=== PATIENT | male | born 1960 | race Two or more races ===

== ENCOUNTER 2022-07-24 22:20 | Inpatient (IN) | payer OTHER ==
[~2022-07-24] VITALS: Ht 172.7 cm; Wt 77.6 kg
[2022-07-24] MEDS ORDERED: ETOMIDATE (2MG/ML) 20ML VIAL IV ONE (22:30)
[2022-07-24] MEDS ORDERED: ROCURONIUM 10MG/ML 10ML VIAL IV ONE ×2 (22:30→22:31)
[2022-07-24] MEDS ORDERED: SUCCINYLCHOLINE CHLORIDE 20 MG/ML 10ML VIAL IV ONE (22:30)
[2022-07-24] MEDS ORDERED: MIDAZOLAM HCL 5 MG/ML-1ML VIAL IM ONE (22:30)
[2022-07-24] MEDS ORDERED: MIDAZOLAM DRIP 50 mg/50mL 50 ML IV ONE (22:33)
[2022-07-24] MEDS: MIDAZOLAM DRIP 50 mg/50mL 50 ML IV SCH (22:38)
[2022-07-24] MEDS: PROPOFOL 100 ML IV SCH (22:50)
[2022-07-24] MEDS ORDERED: PROPOFOL 100 ML IV ONE (23:08)
[2022-07-24] MEDS ORDERED: cefTRIAXone 1GM/50ML D5W 50 ML IV ONE (23:15)
[2022-07-24] MEDS ORDERED: AZITHROMYCIN 500MG/ 250ML 250 ML IV ONE (23:15)
[2022-07-24] MEDS ORDERED: SODIUM CHLORIDE 0.9% 1,000 ML IV ONE (23:15)
[2022-07-24 23:33] LABS: Basophils # (auto) 0.1 10 ^3/uL (0-0.2); Basophils % (auto) 0.6 % (0.0-2.0); Eosinophils # (auto) 0.1 10 ^3/uL (0-0.8); Eosinophils % (auto) 0.7 % (0.0-7.0); Hematocrit 45.4 % (41.0-53.0); Hemoglobin 14.5 g/dL (13.5-17.5); Lymphocytes # (auto) 2.9 10 ^3/uL (0.4-5.4); Lymphocytes % (auto) 15.4 % (10.0-50.0); Mean Corpuscular Hemoglobin 29.3 pg (28.0-32.0); Mean Corpuscular Volume 91.7 fL (80.0-100.0); Monocytes # (auto) 1.4 10 ^3/uL (0-1.3); Monocytes % (auto) 7.5 % (0.0-12.0); Neutrophils # (auto) 14.2 10 ^3/uL (1.6-8.6); Neutrophils % (auto) 75.8 % (37.0-80.0); Red Blood Cells 4.95 10^6/uL (4.5-5.90); White Blood Cell 18.8 10^3/uL (4.4-10.8)
[2022-07-24 23:52] LABS: Lactic Acid w/Reflex 2.6 mmol/L (0.4-2.0)
[2022-07-25] VITALS (9 sets, daily range): BP systolic 92–161; BP diastolic 60–109
[2022-07-25 00:20] LABS: Alanine Aminotransferase 43 U/L (16-61); Albumin 3.6 g/dL (3.4-5.0); Anion Gap 7 (5-15); Aspartate Aminotransferase 25 U/L (15-37); BUN/Creatinine Ratio 21.7; Blood Alcohol < 3.0 mg/dL (0-5); Blood Urea Nitrogen 18 mg/dL (7-18); Calcium 9.4 mg/dL (8.5-10.1); Carbon Dioxide 27 mmol/L (21-32); Chloride 107 mmol/L (98-107); GFR African American 121 mL/min; GFR Non-African American 100 mL/min; Glucose 205 mg/dL (74-106); Potassium 3.6 mmol/L (3.5-5.1); Sodium 141 mmol/L (136-145)
[2022-07-25 00:23] LABS: Alkaline Phosphatase 116 U/L (45-117); Bilirubin, Total 0.9 mg/dL (0.2-1.0); Total Protein 8.1 g/dL (6.4-8.2)
[2022-07-25] MEDS ORDERED: ACETAMINOPHEN 650 MG RECT SUPP PR ONE (01:30)
[2022-07-25] MEDS ORDERED: ACETAMINOPHEN 325 MG RECT SUPP PR ONE (01:30)
[2022-07-25] MEDS ORDERED: ROCURONIUM 10MG/ML 10ML VIAL IV ONE (03:15)
[2022-07-25] MEDS: MIDAZOLAM DRIP 50 mg/50mL 50 ML IV SCH ×3 (04:20→23:48)
[2022-07-25] MEDS ORDERED: ACETAMINOPHEN 325 MG TAB PO PRN (04:30)
[2022-07-25] MEDS ORDERED: NITROGLYCERIN 0.4 MG SL TAB SL PRN (04:30)
[2022-07-25] MEDS ORDERED: MORPHINE SULFATE INJ 2 MG/ml SYRG IV PRN (04:30)
[2022-07-25] MEDS ORDERED: ONDANSETRON HCL 4 MG/2 ML VIAL IV PRN (04:30)
[2022-07-25] MEDS: NOREPINEPHRINE 8 MG/250ML KIT 250 ML IV SCH ×2 (04:35→16:47)
[2022-07-25] MEDS: SODIUM CHLORIDE 0.9% 1,000 ML IV SCH ×2 (04:46→11:49)
[2022-07-25] MEDS ORDERED: MIDAZOLAM HCL 5 MG/ML-1ML VIAL ONE (06:52)
[2022-07-25] MEDS ORDERED: SUCCINYLCHOLINE CHLORIDE 20 MG/ML 10ML VIAL IV ONE ×2 (06:52→06:54)
[2022-07-25] MEDS: ENOXAPARIN SOD 40 MG/0.4 ML SYRINGE SC SCH (11:48)
[2022-07-25] MEDS: PANTOPRAZOLE 40 MG/10 ML VIAL INJ IV SCH (11:49)
[2022-07-25 16:28] LABS: Basophils # (auto) 0.1 10 ^3/uL (0-0.2); Basophils % (auto) 0.5 % (0.0-2.0); Eosinophils # (auto) 0.1 10 ^3/uL (0-0.8); Eosinophils % (auto) 0.9 % (0.0-7.0); Hematocrit 39.2 % (41.0-53.0); Hemoglobin 12.7 g/dL (13.5-17.5); Lymphocytes # (auto) 1.7 10 ^3/uL (0.4-5.4); Lymphocytes % (auto) 13.4 % (10.0-50.0); Mean Corpuscular Hgb Conc. 32.5 g/dL (32.0-36.0); Mean Corpuscular Volume 89.3 fL (80.0-100.0); Monocytes % (auto) 7.5 % (0.0-12.0); Neutrophils # (auto) 10.1 10 ^3/uL (1.6-8.6); Neutrophils % (auto) 77.7 % (37.0-80.0); Nucleated Red Blood Cells % 0.1 %; Red Blood Cells 4.39 10^6/uL (4.5-5.90); Red Cell Distribution Width 14.9 % (11.8-14.3)
[2022-07-25 16:51] LABS: Calcium 8.6 mg/dL (8.5-10.1); Potassium 3.8 mmol/L (3.5-5.1)
[2022-07-25 17:12] LABS: INR 1.07 (0.9-1.15); Partial Thromboplastin Time 34.4 sec (24.6-33.4)
[2022-07-25] MEDS ORDERED: cefTRIAXone 1GM/50ML D5W 50 ML IV ONE (21:30)
[2022-07-25] MEDS ORDERED: AZITHROMYCIN 500MG/ 250ML 250 ML IV ONE (21:30)
[2022-07-25] MEDS ORDERED: HYALURONIDASE 150 UNIT/1 ML SUBCUT ONE (22:15)
[2022-07-26] VITALS (67 sets, daily range): BP systolic 102–163; BP diastolic 66–103
[2022-07-26 04:57] LABS: Basophils # (auto) 0 10 ^3/uL (0-0.2); Basophils % (auto) 0.3 % (0.0-2.0); Eosinophils # (auto) 0.3 10 ^3/uL (0-0.8); Eosinophils % (auto) 2.6 % (0.0-7.0); Hematocrit 37.6 % (41.0-53.0); Hemoglobin 12.2 g/dL (13.5-17.5); Lymphocytes # (auto) 2.1 10 ^3/uL (0.4-5.4); Mean Corpuscular Hemoglobin 29.4 pg (28.0-32.0); Mean Corpuscular Hgb Conc. 32.4 g/dL (32.0-36.0); Mean Corpuscular Volume 90.7 fL (80.0-100.0); Monocytes # (auto) 1.1 10 ^3/uL (0-1.3); Monocytes % (auto) 9.1 % (0.0-12.0); Neutrophils # (auto) 8.7 10 ^3/uL (1.6-8.6); Red Blood Cells 4.15 10^6/uL (4.5-5.90); Red Cell Distribution Width 14.5 % (11.8-14.3); White Blood Cell 12.2 10^3/uL (4.4-10.8)
[2022-07-26 05:13] LABS: Albumin 2.6 g/dL (3.4-5.0); Calcium 8.5 mg/dL (8.5-10.1); Potassium 3.8 mmol/L (3.5-5.1)
[2022-07-26 05:16] LABS: BUN/Creatinine Ratio 21.2; Bilirubin, Total 0.6 mg/dL (0.2-1.0); Total Protein 6.4 g/dL (6.4-8.2)
[2022-07-26] MEDS: PROPOFOL 100 ML IV SCH ×2 (06:14→23:15)
[2022-07-26] MEDS: SODIUM CHLORIDE 0.9% 1,000 ML IV SCH (08:10)
[2022-07-26] MEDS ORDERED: cefTRIAXone 1GM/50ML D5W 50 ML IV SCH (09:00)
[2022-07-26] MEDS ORDERED: AZITHROMYCIN 500MG/ 250ML 250 ML IV SCH (10:00)
[2022-07-26] MEDS: MIDAZOLAM DRIP 50 mg/50mL 50 ML IV SCH ×3 (10:51→22:08)
[2022-07-26] MEDS: PANTOPRAZOLE 40 MG/10 ML VIAL INJ IV SCH (11:12)
[2022-07-26] MEDS: ENOXAPARIN SOD 40 MG/0.4 ML SYRINGE SC SCH (11:12)
[2022-07-26 19:53] LABS: Folate (Folic Acid) 10.99 ng/mL (5.38-24)
[2022-07-27] VITALS (99 sets, daily range): BP systolic 83–197; BP diastolic 52–108
[2022-07-27] MEDS: SODIUM CHLORIDE 0.9% 1,000 ML IV SCH ×3 (01:19→17:41)
[2022-07-27] MEDS: NOREPINEPHRINE 8 MG/250ML KIT 250 ML IV SCH (02:45)
[2022-07-27 04:31] LABS: BUN/Creatinine Ratio 20.8; Calcium 8.7 mg/dL (8.5-10.1)
[2022-07-27 05:14] LABS: Basophils # (auto) 0 10 ^3/uL (0-0.2); Basophils % (auto) 0.5 % (0.0-2.0); Eosinophils # (auto) 0.1 10 ^3/uL (0-0.8); Hematocrit 35.7 % (41.0-53.0); Hemoglobin 11.8 g/dL (13.5-17.5); Lymphocytes # (auto) 1.5 10 ^3/uL (0.4-5.4); Lymphocytes % (auto) 14.3 % (10.0-50.0); Mean Corpuscular Hemoglobin 29.5 pg (28.0-32.0); Mean Corpuscular Hgb Conc. 33.2 g/dL (32.0-36.0); Mean Corpuscular Volume 88.9 fL (80.0-100.0); Monocytes % (auto) 9.5 % (0.0-12.0); Neutrophils # (auto) 7.9 10 ^3/uL (1.6-8.6); Neutrophils % (auto) 74.7 % (37.0-80.0); Red Blood Cells 4.01 10^6/uL (4.5-5.90); Red Cell Distribution Width 14.7 % (11.8-14.3); White Blood Cell 10.5 10^3/uL (4.4-10.8)
[2022-07-27] MEDS: MIDAZOLAM DRIP 50 mg/50mL 50 ML IV SCH (06:45)
[2022-07-27] MEDS ORDERED: TAMS1CAP25 PO (08:44)
[2022-07-27] MEDS ORDERED: SENN1TAB14 PO (08:53)
[2022-07-27] MEDS ORDERED: CHLO25CA56 PO (08:53)
[2022-07-27] MEDS ORDERED: QUET25TA37 PO (08:53)
[2022-07-27] MEDS ORDERED: NITR-52 PO (08:53)
[2022-07-27] MEDS ORDERED: NYS5LQ MT (08:53)
[2022-07-27] MEDS ORDERED: BENZ0.5T19 PO (08:53)
[2022-07-27] MEDS ORDERED: LEVE500T32 PO (08:53)
[2022-07-27] MEDS ORDERED: LEVO100T8 PO (08:53)
[2022-07-27] MEDS: PANTOPRAZOLE 40 MG/10 ML VIAL INJ IV SCH (11:28)
[2022-07-27] MEDS: ENOXAPARIN SOD 40 MG/0.4 ML SYRINGE SC SCH (11:29)
[2022-07-27] MEDS: LINEZOLID 600MG/300ML 300 ML IV SCH ×2 (11:29→21:45)
[2022-07-27] MEDS: MEROPENEM 1GM IVPB 100 ML IV SCH ×2 (15:33→21:46)
[2022-07-27] MEDS: LEVOTHYROXINE SODIUM 100 MCG/5 ML INJ IV SCH (16:50)
[2022-07-27] MEDS: NYSTATIN (MOUTH-THROAT) 500,000 UNITS/5 ML SUSP MT SCH ×2 (17:40→21:45)
[2022-07-27] MEDS: chlordiazePOXIDE HCL 25 MG CAP PO SCH (21:45)
[2022-07-27] MEDS: QUEtiapine FUMARATE 25 MG TAB PO SCH (21:45)
[2022-07-27] MEDS: MUPIROCIN 2% OINT 15gm or 22gm TOP SCH (21:46)
[2022-07-27] MEDS: levETIRAcetam 500 MG TAB PO SCH (21:46)
[2022-07-27] MEDS: PROPOFOL 100 ML IV SCH (23:15)
[2022-07-28] VITALS (93 sets, daily range): BP systolic 91–158; BP diastolic 60–103
[2022-07-28] MEDS: NOREPINEPHRINE 8 MG/250ML KIT 250 ML IV SCH (02:45)
[2022-07-28] MEDS: NYSTATIN (MOUTH-THROAT) 500,000 UNITS/5 ML SUSP MT SCH ×2 (05:59→12:59)
[2022-07-28] MEDS: QUEtiapine FUMARATE 25 MG TAB PO SCH ×3 (05:59→21:58)
[2022-07-28] MEDS: chlordiazePOXIDE HCL 25 MG CAP PO SCH ×2 (05:59→14:29)
[2022-07-28] MEDS: MEROPENEM 1GM IVPB 100 ML IV SCH ×3 (06:00→21:59)
[2022-07-28 06:05] LABS: BUN/Creatinine Ratio 17.6; Calcium 8.9 mg/dL (8.5-10.1); Potassium 3.3 mmol/L (3.5-5.1)
[2022-07-28 06:56] LABS: Basophils # (auto) 0.1 10 ^3/uL (0-0.2); Basophils % (auto) 0.8 % (0.0-2.0); Eosinophils # (auto) 0.3 10 ^3/uL (0-0.8); Eosinophils % (auto) 4.2 % (0.0-7.0); Hematocrit 37.5 % (41.0-53.0); Hemoglobin 12.3 g/dL (13.5-17.5); Lymphocytes # (auto) 1.7 10 ^3/uL (0.4-5.4); Lymphocytes % (auto) 21.5 % (10.0-50.0); Mean Corpuscular Hemoglobin 29.4 pg (28.0-32.0); Mean Corpuscular Hgb Conc. 32.8 g/dL (32.0-36.0); Mean Corpuscular Volume 89.6 fL (80.0-100.0); Monocytes # (auto) 0.8 10 ^3/uL (0-1.3); Neutrophils # (auto) 4.8 10 ^3/uL (1.6-8.6); Neutrophils % (auto) 62.5 % (37.0-80.0); Red Blood Cells 4.18 10^6/uL (4.5-5.90); Red Cell Distribution Width 14.7 % (11.8-14.3); White Blood Cell 7.7 10^3/uL (4.4-10.8)
[2022-07-28] MEDS: PANTOPRAZOLE 40 MG/10 ML VIAL INJ IV SCH (09:35)
[2022-07-28] MEDS: LEVOTHYROXINE SODIUM 100 MCG/5 ML INJ IV SCH (09:35)
[2022-07-28] MEDS: LINEZOLID 600MG/300ML 300 ML IV SCH ×2 (09:36→21:13)
[2022-07-28] MEDS: ENOXAPARIN SOD 40 MG/0.4 ML SYRINGE SC SCH (09:36)
[2022-07-28] MEDS: BENZTROPINE MESY 0.5 MG TAB PO SCH (09:36)
[2022-07-28] MEDS: MUPIROCIN 2% OINT 15gm or 22gm TOP SCH ×2 (09:36→21:58)
[2022-07-28] MEDS: TAMSULOSIN HYDROCHLORIDE 0.4 MG CAP PO SCH (09:36)
[2022-07-28] MEDS: levETIRAcetam 500 MG TAB PO SCH ×2 (09:36→21:58)
[2022-07-28] MEDS: SODIUM CHLORIDE 0.9% 1,000 ML IV SCH (12:59)
[2022-07-28] MEDS: OSELTAMIVIR 75MG/5ML ORAL SUSP GT SCH ×2 (16:15→21:59)
[2022-07-28] MEDS ORDERED: POTASSIUM CHL 20MEQ/100ML 100 ML IV ONE (16:15)
[2022-07-28] MEDS: MIDAZOLAM DRIP 50 mg/50mL 50 ML IV SCH (22:30)
[2022-07-28] MEDS: PROPOFOL 100 ML IV SCH (23:15)
[2022-07-29] VITALS (95 sets, daily range): BP systolic 77–165; BP diastolic 46–115
[2022-07-29] MEDS: SODIUM CHLORIDE 0.9% 1,000 ML IV SCH ×2 (01:50→15:10)
[2022-07-29] MEDS: NOREPINEPHRINE 8 MG/250ML KIT 250 ML IV SCH (03:00)
[2022-07-29 04:06] LABS: Basophils # (auto) 0.1 10 ^3/uL (0-0.2); Basophils % (auto) 0.8 % (0.0-2.0); Eosinophils # (auto) 0.3 10 ^3/uL (0-0.8); Eosinophils % (auto) 4.1 % (0.0-7.0); Monocytes # (auto) 0.7 10 ^3/uL (0-1.3); Neutrophils # (auto) 5.5 10 ^3/uL (1.6-8.6); Nucleated Red Blood Cells % 0.1 %; White Blood Cell 7.8 10^3/uL (4.4-10.8)
[2022-07-29 04:07] LABS: Hematocrit 31.9 % (41.0-53.0); Hemoglobin 10.6 g/dL (13.5-17.5); Lymphocytes # (auto) 1.2 10 ^3/uL (0.4-5.4); Lymphocytes % (auto) 15.7 % (10.0-50.0); Mean Corpuscular Hemoglobin 29.8 pg (28.0-32.0); Mean Corpuscular Hgb Conc. 33.3 g/dL (32.0-36.0); Mean Corpuscular Volume 89.6 fL (80.0-100.0); Monocytes % (auto) 9.2 % (0.0-12.0); Neutrophils % (auto) 70.2 % (37.0-80.0); Red Blood Cells 3.56 10^6/uL (4.5-5.90); Red Cell Distribution Width 14.5 % (11.8-14.3)
[2022-07-29 04:25] LABS: Albumin 2.3 g/dL (3.4-5.0); BUN/Creatinine Ratio 14.3; Calcium 8.4 mg/dL (8.5-10.1); Potassium 3.6 mmol/L (3.5-5.1)
[2022-07-29 04:28] LABS: Bilirubin, Total 0.5 mg/dL (0.2-1.0); Total Protein 5.5 g/dL (6.4-8.2)
[2022-07-29] MEDS: MEROPENEM 1GM IVPB 100 ML IV SCH (05:53)
[2022-07-29] MEDS: QUEtiapine FUMARATE 25 MG TAB PO SCH ×3 (05:53→21:39)
[2022-07-29] MEDS: OSELTAMIVIR 75MG/5ML ORAL SUSP GT SCH ×2 (09:26→21:39)
[2022-07-29] MEDS: PANTOPRAZOLE 40 MG/10 ML VIAL INJ IV SCH (09:35)
[2022-07-29] MEDS: LEVOTHYROXINE SODIUM 100 MCG/5 ML INJ IV SCH (09:35)
[2022-07-29] MEDS: TAMSULOSIN HYDROCHLORIDE 0.4 MG CAP PO SCH (09:36)
[2022-07-29] MEDS: LINEZOLID 600MG/300ML 300 ML IV SCH ×2 (09:36→21:40)
[2022-07-29] MEDS: MUPIROCIN 2% OINT 15gm or 22gm TOP SCH ×2 (09:36→21:40)
[2022-07-29] MEDS: BENZTROPINE MESY 0.5 MG TAB PO SCH (09:36)
[2022-07-29] MEDS: ENOXAPARIN SOD 40 MG/0.4 ML SYRINGE SC SCH (09:36)
[2022-07-29] MEDS: levETIRAcetam 500 MG TAB PO SCH ×2 (09:36→21:39)
[2022-07-29 10:12] LABS: INR 1.03 (0.9-1.15); Partial Thromboplastin Time 29.7 sec (24.6-33.4)
[2022-07-29] MEDS ORDERED: CEFTRIAXONE SODIUM 2 GM in D5W 5% 50 ML IV ONE (15:00)
[2022-07-29] MEDS: MIDAZOLAM DRIP 50 mg/50mL 50 ML IV SCH (21:41)
[2022-07-29] MEDS: PROPOFOL 100 ML IV SCH (21:41)
[2022-07-30] VITALS (45 sets, daily range): BP systolic 65–136; BP diastolic 46–92
[2022-07-30] MEDS: NOREPINEPHRINE 8 MG/250ML KIT 250 ML IV SCH (02:45)
[2022-07-30] MEDS: SODIUM CHLORIDE 0.9% 1,000 ML IV SCH (04:26)
[2022-07-30] MEDS: QUEtiapine FUMARATE 25 MG TAB PO SCH ×3 (05:48→22:33)
[2022-07-30] MEDS: OSELTAMIVIR 75MG/5ML ORAL SUSP GT SCH ×2 (10:00→22:00)
[2022-07-30] MEDS: PANTOPRAZOLE 40 MG/10 ML VIAL INJ IV SCH (10:56)
[2022-07-30] MEDS: LEVOTHYROXINE SODIUM 100 MCG/5 ML INJ IV SCH (10:56)
[2022-07-30] MEDS: LINEZOLID 600MG/300ML 300 ML IV SCH ×2 (10:56→22:33)
[2022-07-30] MEDS: MUPIROCIN 2% OINT 15gm or 22gm TOP SCH ×2 (10:57→22:33)
[2022-07-30] MEDS: BENZTROPINE MESY 0.5 MG TAB PO SCH (10:57)
[2022-07-30] MEDS: ENOXAPARIN SOD 40 MG/0.4 ML SYRINGE SC SCH (10:57)
[2022-07-30] MEDS: TAMSULOSIN HYDROCHLORIDE 0.4 MG CAP PO SCH (10:57)
[2022-07-30] MEDS: levETIRAcetam 500 MG TAB PO SCH ×2 (10:57→22:33)
[2022-07-30] MEDS: CEFTRIAXONE SODIUM 2 GM in D5W 5% 50 ML IV SCH (10:58)
[2022-07-30] MEDS: D5W 5% 1,000 ML IV SCH (13:37)
[2022-07-30] MEDS: PROPOFOL 100 ML IV SCH (20:35)
[2022-07-30 23:19] LABS: Basophils # (auto) 0 10 ^3/uL (0-0.2); Eosinophils # (auto) 0.1 10 ^3/uL (0-0.8); Eosinophils % (auto) 1.3 % (0.0-7.0); Mean Corpuscular Hgb Conc. 33.1 g/dL (32.0-36.0); Monocytes # (auto) 0.6 10 ^3/uL (0-1.3); Monocytes % (auto) 7.3 % (0.0-12.0)
[2022-07-30 23:21] LABS: Basophils % (auto) 0.5 % (0.0-2.0); Hematocrit 32.1 % (41.0-53.0); Hemoglobin 10.6 g/dL (13.5-17.5); Lymphocytes # (auto) 1.3 10 ^3/uL (0.4-5.4); Lymphocytes % (auto) 15.5 % (10.0-50.0); Mean Corpuscular Hemoglobin 29.3 pg (28.0-32.0); Mean Corpuscular Volume 88.5 fL (80.0-100.0); Neutrophils # (auto) 6.2 10 ^3/uL (1.6-8.6); Neutrophils % (auto) 75.4 % (37.0-80.0); Red Blood Cells 3.62 10^6/uL (4.5-5.90); Red Cell Distribution Width 14.1 % (11.8-14.3); White Blood Cell 8.2 10^3/uL (4.4-10.8)
[2022-07-30 23:46] LABS: Calcium 8.6 mg/dL (8.5-10.1); Potassium 3.3 mmol/L (3.5-5.1)
[2022-07-31] VITALS (87 sets, daily range): BP systolic 71–126; BP diastolic 39–94
[2022-07-31] MEDS: PROPOFOL 100 ML IV SCH (01:59)
[2022-07-31 04:21] LABS: Basophils # (auto) 0 10 ^3/uL (0-0.2); Eosinophils # (auto) 0.3 10 ^3/uL (0-0.8); Lymphocytes % (auto) 27.2 % (10.0-50.0); Monocytes # (auto) 0.6 10 ^3/uL (0-1.3)
[2022-07-31 04:23] LABS: Basophils % (auto) 0.3 % (0.0-2.0); Eosinophils % (auto) 4.8 % (0.0-7.0); Hemoglobin 10.3 g/dL (13.5-17.5); Lymphocytes # (auto) 1.6 10 ^3/uL (0.4-5.4); Mean Corpuscular Hemoglobin 29.6 pg (28.0-32.0); Mean Corpuscular Hgb Conc. 33.4 g/dL (32.0-36.0); Mean Corpuscular Volume 88.8 fL (80.0-100.0); Monocytes % (auto) 10.6 % (0.0-12.0); Neutrophils # (auto) 3.4 10 ^3/uL (1.6-8.6); Neutrophils % (auto) 57.1 % (37.0-80.0); Nucleated Red Blood Cells % 0.2 %; Red Blood Cells 3.49 10^6/uL (4.5-5.90)
[2022-07-31 04:41] LABS: BUN/Creatinine Ratio 11.5; Calcium 8.3 mg/dL (8.5-10.1); Potassium 3.2 mmol/L (3.5-5.1)
[2022-07-31] MEDS: QUEtiapine FUMARATE 25 MG TAB PO SCH ×3 (06:01→21:54)
[2022-07-31] MEDS: NOREPINEPHRINE 8 MG/250ML KIT 250 ML IV SCH (06:54)
[2022-07-31] MEDS: D5W 5% 1,000 ML IV SCH ×4 (07:45→21:56)
[2022-07-31] MEDS: MIDAZOLAM DRIP 50 mg/50mL 50 ML IV SCH ×2 (08:06→22:30)
[2022-07-31] MEDS: CEFTRIAXONE SODIUM 2 GM in D5W 5% 50 ML IV SCH (09:54)
[2022-07-31] MEDS: LINEZOLID 600MG/300ML 300 ML IV SCH ×2 (09:54→21:55)
[2022-07-31] MEDS: ENOXAPARIN SOD 40 MG/0.4 ML SYRINGE SC SCH (09:55)
[2022-07-31] MEDS: LEVOTHYROXINE SODIUM 100 MCG/5 ML INJ IV SCH (09:55)
[2022-07-31] MEDS: PANTOPRAZOLE 40 MG/10 ML VIAL INJ IV SCH (09:55)
[2022-07-31] MEDS: levETIRAcetam 500 MG TAB PO SCH ×2 (09:56→21:54)
[2022-07-31] MEDS: BENZTROPINE MESY 0.5 MG TAB PO SCH (09:56)
[2022-07-31] MEDS: TAMSULOSIN HYDROCHLORIDE 0.4 MG CAP PO SCH (09:56)
[2022-07-31] MEDS: MUPIROCIN 2% OINT 15gm or 22gm TOP SCH ×2 (09:57→22:26)
[2022-07-31] MEDS: OSELTAMIVIR 75MG/5ML ORAL SUSP GT SCH ×2 (09:58→22:00)
[2022-07-31] MEDS: POTASSIUM CHL 20MEQ/100ML 100 ML IV SCH ×2 (13:51→13:53)
[2022-07-31 14:04] LABS: Magnesium 1.6 mg/dL (1.6-2.6); Phosphorus 2.4 mg/dL (2.5-4.90)
[2022-08-01] VITALS (103 sets, daily range): BP systolic 77–155; BP diastolic 37–102
[2022-08-01] MEDS: PROPOFOL 100 ML IV SCH (00:40)
[2022-08-01] MEDS: NOREPINEPHRINE 8 MG/250ML KIT 250 ML IV SCH (02:45)
[2022-08-01 04:45] LABS: Basophils # (auto) 0 10 ^3/uL (0-0.2); Eosinophils # (auto) 0.4 10 ^3/uL (0-0.8); Hemoglobin 10.9 g/dL (13.5-17.5); Monocytes # (auto) 0.6 10 ^3/uL (0-1.3)
[2022-08-01 04:47] LABS: Basophils % (auto) 0.8 % (0.0-2.0); Eosinophils % (auto) 6.7 % (0.0-7.0); Hematocrit 32.4 % (41.0-53.0); Lymphocytes # (auto) 1.3 10 ^3/uL (0.4-5.4); Lymphocytes % (auto) 20.7 % (10.0-50.0); Mean Corpuscular Hemoglobin 29.9 pg (28.0-32.0); Mean Corpuscular Hgb Conc. 33.5 g/dL (32.0-36.0); Mean Corpuscular Volume 89.2 fL (80.0-100.0); Monocytes % (auto) 9.1 % (0.0-12.0); Neutrophils # (auto) 3.9 10 ^3/uL (1.6-8.6); Neutrophils % (auto) 62.7 % (37.0-80.0); Nucleated Red Blood Cells % 0.1 %; Red Blood Cells 3.63 10^6/uL (4.5-5.90); Red Cell Distribution Width 14.8 % (11.8-14.3); White Blood Cell 6.2 10^3/uL (4.4-10.8)
[2022-08-01 04:50] LABS: BUN/Creatinine Ratio 5.1; Calcium 8.4 mg/dL (8.5-10.1); Potassium 3.7 mmol/L (3.5-5.1)
[2022-08-01] MEDS: QUEtiapine FUMARATE 25 MG TAB PO SCH ×3 (05:46→21:39)
[2022-08-01] MEDS: CEFTRIAXONE SODIUM 2 GM in D5W 5% 50 ML IV SCH (08:20)
[2022-08-01] MEDS: BENZTROPINE MESY 0.5 MG TAB PO SCH (09:15)
[2022-08-01] MEDS: TAMSULOSIN HYDROCHLORIDE 0.4 MG CAP PO SCH (09:15)
[2022-08-01] MEDS: PANTOPRAZOLE 40 MG/10 ML VIAL INJ IV SCH (09:15)
[2022-08-01] MEDS: levETIRAcetam 500 MG TAB PO SCH ×2 (09:15→21:39)
[2022-08-01] MEDS: LEVOTHYROXINE SODIUM 100 MCG/5 ML INJ IV SCH (09:15)
[2022-08-01] MEDS: LINEZOLID 600MG/300ML 300 ML IV SCH ×2 (09:15→21:39)
[2022-08-01] MEDS: ENOXAPARIN SOD 40 MG/0.4 ML SYRINGE SC SCH (09:16)
[2022-08-01] MEDS: OSELTAMIVIR 75MG/5ML ORAL SUSP GT SCH ×2 (09:16→21:40)
[2022-08-01] MEDS: MUPIROCIN 2% OINT 15gm or 22gm TOP SCH ×2 (09:16→21:40)
[2022-08-01] MEDS: MIDAZOLAM DRIP 50 mg/50mL 50 ML IV SCH ×2 (11:28→20:01)
[2022-08-01] MEDS: D5W 5% 1,000 ML IV SCH ×2 (13:45→23:56)
[2022-08-02] VITALS (86 sets, daily range): BP systolic 88–166; BP diastolic 59–119
[2022-08-02] MEDS: NOREPINEPHRINE 8 MG/250ML KIT 250 ML IV SCH (02:45)
[2022-08-02 04:11] LABS: Basophils # (auto) 0 10 ^3/uL (0-0.2); Eosinophils # (auto) 0.6 10 ^3/uL (0-0.8); Hemoglobin 10.3 g/dL (13.5-17.5); Nucleated Red Blood Cells % 0.2 %; White Blood Cell 5.3 10^3/uL (4.4-10.8)
[2022-08-02 04:16] LABS: Basophils % (auto) 0.8 % (0.0-2.0); Hematocrit 30.8 % (41.0-53.0); Lymphocytes # (auto) 1.8 10 ^3/uL (0.4-5.4); Lymphocytes % (auto) 34.6 % (10.0-50.0); Mean Corpuscular Hemoglobin 29.6 pg (28.0-32.0); Mean Corpuscular Hgb Conc. 33.3 g/dL (32.0-36.0); Mean Corpuscular Volume 88.8 fL (80.0-100.0); Monocytes # (auto) 0.6 10 ^3/uL (0-1.3); Monocytes % (auto) 10.9 % (0.0-12.0); Neutrophils # (auto) 2.2 10 ^3/uL (1.6-8.6); Neutrophils % (auto) 42.7 % (37.0-80.0); Red Blood Cells 3.47 10^6/uL (4.5-5.90); Red Cell Distribution Width 14.3 % (11.8-14.3)
[2022-08-02 04:35] LABS: BUN/Creatinine Ratio 4.2; Calcium 8.3 mg/dL (8.5-10.1); Potassium 3.3 mmol/L (3.5-5.1)
[2022-08-02] MEDS: QUEtiapine FUMARATE 25 MG TAB PO SCH ×3 (05:10→22:28)
[2022-08-02] MEDS: TAMSULOSIN HYDROCHLORIDE 0.4 MG CAP PO SCH (10:00)
[2022-08-02] MEDS: OSELTAMIVIR 75MG/5ML ORAL SUSP GT SCH ×2 (10:00→22:28)
[2022-08-02] MEDS: levETIRAcetam 500 MG TAB PO SCH ×2 (10:00→22:28)
[2022-08-02] MEDS: ENOXAPARIN SOD 40 MG/0.4 ML SYRINGE SC SCH (10:00)
[2022-08-02] MEDS: BENZTROPINE MESY 0.5 MG TAB PO SCH (10:00)
[2022-08-02] MEDS: LEVOTHYROXINE SODIUM 100 MCG/5 ML INJ IV SCH (10:01)
[2022-08-02] MEDS: PANTOPRAZOLE 40 MG/10 ML VIAL INJ IV SCH (10:01)
[2022-08-02] MEDS: LINEZOLID 600MG/300ML 300 ML IV SCH ×2 (10:01→22:28)
[2022-08-02] MEDS: MUPIROCIN 2% OINT 15gm or 22gm TOP SCH ×2 (10:18→22:29)
[2022-08-02] MEDS: D5W 5% 1,000 ML IV SCH ×3 (11:03→22:29)
[2022-08-02] MEDS: CEFTRIAXONE SODIUM 2 GM in D5W 5% 50 ML IV SCH (12:10)
[2022-08-02] MEDS: MIDAZOLAM DRIP 50 mg/50mL 50 ML IV SCH (18:57)
[2022-08-02] MEDS: PROPOFOL 100 ML IV SCH (20:05)
[2022-08-03] VITALS (65 sets, daily range): BP systolic 87–186; BP diastolic 58–126
[2022-08-03] MEDS: NOREPINEPHRINE 8 MG/250ML KIT 250 ML IV SCH (02:45)
[2022-08-03 05:12] LABS: Basophils # (auto) 0.1 10 ^3/uL (0-0.2); Basophils % (auto) 1.1 % (0.0-2.0); Eosinophils # (auto) 0.4 10 ^3/uL (0-0.8); Hematocrit 34.2 % (41.0-53.0); Lymphocytes # (auto) 1.4 10 ^3/uL (0.4-5.4); Lymphocytes % (auto) 28.4 % (10.0-50.0); Monocytes # (auto) 0.4 10 ^3/uL (0-1.3); Neutrophils # (auto) 2.7 10 ^3/uL (1.6-8.6)
[2022-08-03 05:17] LABS: Hemoglobin 11.7 g/dL (13.5-17.5); Mean Corpuscular Hgb Conc. 34.2 g/dL (32.0-36.0); Mean Corpuscular Volume 87.7 fL (80.0-100.0); Monocytes % (auto) 8.2 % (0.0-12.0); Neutrophils % (auto) 54.3 % (37.0-80.0); Nucleated Red Blood Cells % 0.2 %; Red Cell Distribution Width 14.3 % (11.8-14.3)
[2022-08-03 05:33] LABS: Potassium 3.5 mmol/L (3.5-5.1)
[2022-08-03 05:40] LABS: Albumin 2.6 g/dL (3.4-5.0); BUN/Creatinine Ratio 3.6; Bilirubin, Total 0.7 mg/dL (0.2-1.0); Calcium 8.5 mg/dL (8.5-10.1); Total Protein 5.7 g/dL (6.4-8.2)
[2022-08-03] MEDS: QUEtiapine FUMARATE 25 MG TAB PO SCH ×3 (06:39→21:47)
[2022-08-03] MEDS: LINEZOLID 600MG/300ML 300 ML IV SCH ×2 (09:56→21:46)
[2022-08-03] MEDS: LEVOTHYROXINE SODIUM 100 MCG/5 ML INJ IV SCH (09:57)
[2022-08-03] MEDS: levETIRAcetam 500 MG TAB PO SCH ×2 (09:57→21:47)
[2022-08-03] MEDS: BENZTROPINE MESY 0.5 MG TAB PO SCH (09:57)
[2022-08-03] MEDS: TAMSULOSIN HYDROCHLORIDE 0.4 MG CAP PO SCH (09:57)
[2022-08-03] MEDS: CEFTRIAXONE SODIUM 2 GM in D5W 5% 50 ML IV SCH (09:57)
[2022-08-03] MEDS: PANTOPRAZOLE 40 MG/10 ML VIAL INJ IV SCH (09:57)
[2022-08-03] MEDS: ENOXAPARIN SOD 40 MG/0.4 ML SYRINGE SC SCH (09:57)
[2022-08-03] MEDS: MUPIROCIN 2% OINT 15gm or 22gm TOP SCH (09:58)
[2022-08-03] MEDS: OSELTAMIVIR 75MG/5ML ORAL SUSP GT SCH ×2 (10:38→21:46)
[2022-08-03] MEDS ORDERED: Jevity 1.2 Cal/Fiber 1 Liter GT SCH (12:45)
[2022-08-03] MEDS: D5W 5% 1,000 ML IV SCH ×2 (15:45→15:54)
[2022-08-03] MEDS: MIDAZOLAM DRIP 50 mg/50mL 50 ML IV SCH (21:48)
[2022-08-03] MEDS: PROPOFOL 100 ML IV SCH (23:15)
[2022-08-04] VITALS (29 sets, daily range): BP systolic 88–125; BP diastolic 61–89
[2022-08-04] MEDS: NOREPINEPHRINE 8 MG/250ML KIT 250 ML IV SCH (01:11)
[2022-08-04 04:14] LABS: Basophils # (auto) 0.1 10 ^3/uL (0-0.2); Basophils % (auto) 0.8 % (0.0-2.0); Eosinophils # (auto) 0.1 10 ^3/uL (0-0.8); Monocytes # (auto) 0.4 10 ^3/uL (0-1.3); Nucleated Red Blood Cells % 0.1 %
[2022-08-04 04:17] LABS: Hematocrit 33.9 % (41.0-53.0); Hemoglobin 11.3 g/dL (13.5-17.5); Lymphocytes # (auto) 1.5 10 ^3/uL (0.4-5.4); Lymphocytes % (auto) 22.5 % (10.0-50.0); Mean Corpuscular Hemoglobin 29.9 pg (28.0-32.0); Mean Corpuscular Hgb Conc. 33.4 g/dL (32.0-36.0); Mean Corpuscular Volume 89.4 fL (80.0-100.0); Monocytes % (auto) 5.3 % (0.0-12.0); Neutrophils # (auto) 4.5 10 ^3/uL (1.6-8.6); Neutrophils % (auto) 69.4 % (37.0-80.0); Red Blood Cells 3.79 10^6/uL (4.5-5.90); Red Cell Distribution Width 14.4 % (11.8-14.3); White Blood Cell 6.6 10^3/uL (4.4-10.8)
[2022-08-04 04:32] LABS: Calcium 8.4 mg/dL (8.5-10.1)
[2022-08-04 04:34] LABS: BUN/Creatinine Ratio 5.5
[2022-08-04] MEDS: QUEtiapine FUMARATE 25 MG TAB PO SCH ×3 (05:40→20:50)
[2022-08-04] MEDS: LINEZOLID 600MG/300ML 300 ML IV SCH ×2 (08:54→20:50)
[2022-08-04] MEDS: LEVOTHYROXINE SODIUM 100 MCG/5 ML INJ IV SCH (08:54)
[2022-08-04] MEDS: ENOXAPARIN SOD 40 MG/0.4 ML SYRINGE SC SCH (08:54)
[2022-08-04] MEDS: PANTOPRAZOLE 40 MG/10 ML VIAL INJ IV SCH (08:54)
[2022-08-04] MEDS: BENZTROPINE MESY 0.5 MG TAB PO SCH (08:55)
[2022-08-04] MEDS: TAMSULOSIN HYDROCHLORIDE 0.4 MG CAP PO SCH (08:55)
[2022-08-04] MEDS: levETIRAcetam 500 MG TAB PO SCH ×2 (08:55→20:50)
[2022-08-04] MEDS: OSELTAMIVIR 75MG/5ML ORAL SUSP GT SCH ×2 (09:12→20:50)
[2022-08-04] MEDS: CEFTRIAXONE SODIUM 2 GM in D5W 5% 50 ML IV SCH (09:12)
[2022-08-04] MEDS: D5W 5% 1,000 ML IV SCH (12:13)
[2022-08-04] MEDS: MIDAZOLAM DRIP 50 mg/50mL 50 ML IV SCH (20:50)
[2022-08-04] MEDS ORDERED: LORazepam 2MG/ML-1ML VIAL IV PRN (21:30)
[2022-08-04] MEDS: PROPOFOL 100 ML IV SCH (23:15)
[2022-08-05] VITALS (25 sets, daily range): BP systolic 85–131; BP diastolic 54–89
[2022-08-05] MEDS: D5W 5% 1,000 ML IV SCH ×3 (00:47→16:30)
[2022-08-05] MEDS: NOREPINEPHRINE 8 MG/250ML KIT 250 ML IV SCH (02:45)
[2022-08-05] MEDS: QUEtiapine FUMARATE 25 MG TAB PO SCH ×3 (05:21→19:13)
[2022-08-05] MEDS: LEVOTHYROXINE SODIUM 100 MCG/5 ML INJ IV SCH (09:23)
[2022-08-05] MEDS: LINEZOLID 600MG/300ML 300 ML IV SCH (09:23)
[2022-08-05] MEDS: PANTOPRAZOLE 40 MG/10 ML VIAL INJ IV SCH (09:23)
[2022-08-05] MEDS: OSELTAMIVIR 75MG/5ML ORAL SUSP GT SCH ×2 (09:23→19:12)
[2022-08-05] MEDS: CEFTRIAXONE SODIUM 2 GM in D5W 5% 50 ML IV SCH (09:23)
[2022-08-05] MEDS: BENZTROPINE MESY 0.5 MG TAB PO SCH (09:24)
[2022-08-05] MEDS: TAMSULOSIN HYDROCHLORIDE 0.4 MG CAP PO SCH (09:25)
[2022-08-05] MEDS: ENOXAPARIN SOD 40 MG/0.4 ML SYRINGE SC SCH (09:25)
[2022-08-05] MEDS: levETIRAcetam 500 MG TAB PO SCH ×2 (09:25→19:13)
[2022-08-05] MEDS ORDERED: LINE1TAB6 PO (15:57)
[2022-08-05] MEDS ORDERED: CEFU500T43 PO (15:57)
== END 2022-08-05 20:36 | disposition hospice, home (50) | DRG 720 ==
LOC: ER 22:20 → EDBD 22:20 → TELE 07-25 04:24 → ICU WEST 07-26 09:27
PROVIDERS: ADMIT Nurse Practitioner; ATTEND Internal Medicine
PROC: 5A1955Z Respiratory Ventilation, Greater than 96 Consecutive Hours (ICD-10-PCS; principal; 2022-07-25)
PROC: 0BH17EZ Insertion of Endotracheal Airway into Trachea, Via Natural or Artificial Opening (ICD-10-PCS; 2022-07-25)
PROC: 0TJB8ZZ Inspection of Bladder, Via Natural or Artificial Opening Endoscopic (ICD-10-PCS; 2022-07-26)
PROC: 05HF33Z Insertion of Infusion Device into Left Cephalic Vein, Percutaneous Approach (ICD-10-PCS; 2022-08-01)
PROC: B54NZZA Ultrasonography of Left Upper Extremity Veins, Guidance (ICD-10-PCS; 2022-08-01)
DX: A41.9 Sepsis, unspecified organism (principal); J96.01 Acute respiratory failure with hypoxia; R65.21 Severe sepsis with septic shock; J95.851 Ventilator associated pneumonia; J10.00 Influenza due to other identified influenza virus with unspecified type of pneumonia; G93.1 Anoxic brain damage, not elsewhere classified; M84.452A Pathological fracture, left femur, initial encounter for fracture; G92.8 Other toxic encephalopathy; R64 Cachexia; Z20.822 Contact with and (suspected) exposure to COVID-19; E03.9 Hypothyroidism, unspecified; G20 Parkinson's disease; J98.11 Atelectasis; G30.9 Alzheimer's disease, unspecified; F02.80 Dementia in other diseases classified elsewhere, unspecified severity, without behavioral disturbance, psychotic disturbance, mood disturbance, and anxiety; N30.90 Cystitis, unspecified without hematuria; N40.0 Benign prostatic hyperplasia without lower urinary tract symptoms; N21.0 Calculus in bladder; J32.0 Chronic maxillary sinusitis; K59.00 Constipation, unspecified; G93.89 Other specified disorders of brain; F02.84 Dementia in other diseases classified elsewhere, unspecified severity, with anxiety; E87.6 Hypokalemia; I49.8 Other specified cardiac arrhythmias; J98.4 Other disorders of lung; N36.8 Other specified disorders of urethra; E87.0 Hyperosmolality and hypernatremia; E87.3 Alkalosis; Z68.25 Body mass index [BMI] 25.0-25.9, adult; Z51.5 Encounter for palliative care; Z81.8 Family history of other mental and behavioral disorders; Z74.01 Bed confinement status; Z82.0 Family history of epilepsy and other diseases of the nervous system; Z86.73 Personal history of transient ischemic attack (TIA), and cerebral infarction without residual deficits
CPT/HCPCS: 31500; 36415; 36600; 70450; 71045; 71250; 74176; 80048; 80053; 80320; 82607; 82746; 82805; 83605; 83735; 84100; 84443; 84484; 85025; 85610; 85730; 87040; 87070; 87077; 87081; 87186; 87205; 87426; 87804; 87807; 93005; 93306; 94002; 94003; 94640; 95819; 96365; 96367; 99291; C9113; G0378; J0330; J0696; J2185; J2250; J2704; J3470; J3480; J3490; J7060

== ENCOUNTER 2025-03-06 19:29 | Inpatient (IN) | payer MEDICARE, MEDICAID ==
[~2025-03-06] VITALS: Ht 170.2 cm; Wt 56.5 kg
[~2025-03-06 19:29] MED LIST: BENZ0.5T PO; CEFU500T43 PO; LEVE500T40 PO; LEVO100T8 PO; LINE1TAB6 PO; QUET25TA37 PO; SENN1TAB14 PO; TAMS1CAP25 PO
--- NOTE | 2025-03-06 19:42 | ECG ---
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
[2025-03-06] MEDS: ETOMIDATE (2MG/ML) 20ML VIAL IV ONE (19:48)
[2025-03-06] MEDS: SUCCINYLCHOLINE CHLORIDE 20 MG/ML 10ML VIAL IV ONE ×2 (19:49→20:02)
[2025-03-06 19:55] VITALS: BP 166/108; PULSE 132; PULSE 136; RESP 19; RESP 27; O2SAT 98; O2SAT 99
[2025-03-06] MEDS: MIDAZOLAM DRIP 50 mg/50mL 50 ML IV ONE (19:57)
--- NOTE | 2025-03-06 19:58 | ED.PDOC ---
HPI (NEURO) HPI Comments 65 y.o male with PMHx of dementia, COPD, seizures, hypothyroidism, BPH and Parkinson's disease, presents to the ED via EMS for an evaluation of seizure episode today. EMS reports patient's daughter witness seizure today, tonic clonic, states he is on Keppra. Per daughter, patient has two seizures per day, last one was earlier today. EMS reports patient was tachycardiac at 150 with SPO2 of 93% on room air on scene. EMS placed patient on 4 liters of O2 via NC, bringing saturation up to 94%. Per daughter, patient is full code. Chief Complaint: Seizure Time Seen by MD: 19:45 Reviewed Notes: Nurses Notes, Workers' Compensation Claims Examiner Notes, Medications, Allergies Information Source: Relative (daughter ), Emergency Med Personnel Mode of Arrival: EMS Severity: Moderate Timing: Hours Duration: Since onset Seizure Quality: Tonic-clonic Seizure Location: Generalized Onset: At rest Circumstances: Spontaneous Before: Normal During: LOC History of: Seizure Disorder Modifying factors: Nothing Associated Signs and Symptoms: Other Past Medical History PAST MEDICAL HISTORY: COPD, Dementia, Seizures, Thyroid Past Medical History (Other): BPH and parkinson's Surgical History: Unobtainable Family History Family History: Unknown Social History Smoker: Non-Smoker Alcohol: Denies ETOH Use Drugs: Denies Drug Use Lives In: Home Neurological: reports: seizure Unable to Obtain due to: Dementia Physical Exam General Appearance: Moderate Distress HEENT: Normal ENT Inspection, Pharynx Normal, TMs Normal Neck: Full Range of Motion, Non-Tender, Normal, Normal Inspection Respiratory: Accessory Muscle Use, Chest Non-Tender, Lungs Clear, Normal Breath Sounds, Respiratory Distress Cardiovascular: No Edema, No JVD, No Murmur, No Gallop, Tachycardia Breast Exam: Deferred Gastrointestinal: No Organomegaly, Non Tender, No Pulsatile Mass, Normal Bowel Sounds, Soft Genitalia: Deferred Pelvic: Deferred Rectal: Deferred Extremities: No calf tenderness, Normal capillary refill, No pedal edema, Other (Contractures) Musculoskeletal : Apperance: Normal Neurologic: 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 Was a procedure done?: No Differential Diagnosis (SZ) Seizure: CVA/TIA, Hypoxemia, Syncope, Encephalopathy, Epilepsy-Break Through, Epilepsy-Status General Weakness: Dehydration, Electrolyte imbalance, Guillain-[place] X-Ray, Labs, Meds, VS Vital Signs Date Time Temp Pulse Resp B/P (MAP) Pulse Ox O2 Delivery O2 Flow Rate FiO2 03/06/25 19:58 153 03/06/25 19:40 100.4 75 16 126/89 (101) 94 100.4 03/06/25 19:35 153 Lab Test 03/06/25 20:22 03/06/25 19:55 Range/Units Blood Gas Specimen Type Arterial Blood Gas Sample Site Left radial Blood Gas Patient Temperature 37.0 Arterial Blood Date Drawn Arterial Blood pH 7.163 *L 7.350-7.450 Arterial Blood Partial Pressure CO2 57.3 H 35.0-48.0 mmHg Arterial Blood Partial Pressure O2 79.2 L 83.0-108.0 mmHg Arterial Blood HCO3 20.1 L 21.0-28.0 mmol/L Arterial Blood Oxygen Saturation 90.3 L 94.0-98.0 % Arterial Blood Base Excess -9.0 L -2.0-3.0 mmol/L Arterial Blood Oxyhemoglobin 88.8 L 94.0-98.0 % Arterial Blood Carboxyhemoglobin 1.1 0.5-1.5 % Arterial Blood Methemoglobin 0.6 0.0-1.5 % Mateo Test Modified Blood Gas Total Hemoglobin 13.70 13.5-17.5 g/dL Blood Gas Set Respiration Rate 16.0 Blood Gas Modality Vent - ac Blood Gas Spontaneous Rate 27 FiO2 % 50.0 Blood Gas Tidal Volume 400.0 Blood Gas Spontaneous Tidal Volume 380 Blood Gas PEEP or CPAP 5.0 Bl Gas Inspiratory/Expiratory Ratio 1:2.2 Specimen Drawn By Nasrin arreguin rt Blood Gas Critical Value Read Back Yes Blood Gas Notified Whom Dr nasrin gambino Blood Gas Notified Time [id number] Blood Gas Notified By Nasrin little White Blood Count 44.5 *H 4.4-10.8 10^3/uL Red Blood Count 4.59 4.5-5.90 10^6/uL Hemoglobin 12.4 L 13.5-17.5 g/dL Hematocrit 39.5 L 41.0-53.0 % Mean Corpuscular Volume 85.9 80.0-100.0 fL Mean Corpuscular Hemoglobin 26.9 L 28.0-32.0 pg Mean Corpuscular Hemoglobin Concent 31.3 L 32.0-36.0 g/dL Red Cell Distribution Width 17.1 H 11.8-14.3 % Platelet Count 404 140-450 10^3/uL Mean Platelet Volume 8.2 6.9-10.8 fL Neutrophils (%) (Auto) 37.0-80.0 % Lymphocytes (%) (Auto) 10.0-50.0 % Monocytes (%) (Auto) 0.0-12.0 % Basophils (%) (Auto) 0.0-2.0 % Neutrophils # (Auto) 1.6-8.6 10 ^3/uL Lymphocytes # (Auto) 0.4-5.4 10 ^3/uL Monocytes # (Auto) 0-1.3 10 ^3/uL Differential Total Cells Counted 100.0 100 Neutrophils % (Manual) 80 37.0-80.0 Band Neutrophils % (Manual) 7 Lymphocytes % (Manual) 6 L 10.0-50.0 Monocytes % (Manual) 7 0-12 Eosinophils % (Manual) 0 0-7 Basophils % (Manual) 0 0.0-2.0 Metamyelocytes % (manual) 0 Myelocytes % (Manual) 0 Promyelocytes % (Manual) 0 Blast Cells % (Manual) 0 Reactive Lymphocytes 0 Platelet Estimate Adequate Large Platelets Few Anisocytosis (manual) Slight Sodium Level 138 136-145 mmol/L Potassium Level 4.0 3.5-5.1 mmol/L Chloride Level 105 98-107 mmol/L Carbon Dioxide Level 20 20-31 mmol/L Anion Gap 13 5-15 Blood Urea Nitrogen 28 H 9-23 mg/dL Creatinine 1.73 H 0.700-1.30 mg/dL Glomerular Filtration Rate Calc 43 >90 mL/min BUN/Creatinine Ratio 16.2 10.0-20.0 Serum Glucose 310 H 74-106 mg/dL Lactic Acid Level 5.2 *H 0.4-2.0 mmol/L Calcium Level 10.0 8.7-10.4 mg/dL We are able to speak to the family on the phone. (Danica who is the patient's daughter) They confirmed that the patient is full code. The patient was intubated immediately upon arrival The patient's lactic acid level is 5.2 Blood cultures x2 were drawn. The patient is being given Rocephin IV piggyback The patient is also given vancomycin IV piggyback The chemistry panel is within normal limits except for a BUN of 28 a creatinine of 1.73 Based on the elevated lactic acid level as well as a white blood cell count that is elevated at 44.5, the patient is considered to be possible sepsis The patient was given normal saline per sepsis protocol The rest of the CBC is within normal limits. The patient had an NG-tube placed. The patient also had a Abrams catheter placed. The initial chest x-ray showed that the endotracheal tube was right above the silas so we did pull it back some. Line the patient was febrile at 100.4 The patient is being given acetaminophen 650 mg per rectum Images Reviewed?: Images reviewed and evaluated by me Time of 1ST Reevaluation: 19:54 Reevaluation 1ST: Unchanged Patient Education/Counseling: Other (hx of dementia ) Family Education/Counseling: No Family Present Departure 1 Departure Time of Disposition: 20:33 Impression: Primary Impression: Acute respiratory failure Qualified Codes: J96.01 - Acute respiratory failure with hypoxia Additional Impressions: Status post seizure Sepsis Qualified Codes: A41.9 - Sepsis, unspecified organism; R65.20 - Severe sepsis without septic shock Disposition: ADMITTED INPATIENT Admit to: ICU Condition: Critical Critical Care Note Critical Care Time?: Yes (1 hr-critical care time only) Stability Stability form required: Yes Unstable for transfer: ICU, CCU, PCU, KEN (Intensive VS monitoring), May require CPR (possible rapid decline), ED Physician Assesment (Clinical assesment) Heart Score Heart Score: Heart Score Response (Comments) Value History N/A 0 EKG N/A 0 Age N/A 0 Risk Factors N/A 0 Troponin N/A 0 Total 0 I personally scribed for DALJIT GAMBINO MD ([email or web address]) on 03/06/25 at 19:58. Electronically submitted by Barby Benjamin ([facility]). DALJIT GAMBINO MD Mar 06, 2025 19:58
[2025-03-06 20:13] LABS: Chloride 105 mmol/L (98-107); Potassium 4.0 mmol/L (3.5-5.1); Sodium 138 mmol/L (136-145)
[2025-03-06 20:14] LABS: Anion Gap 13 (5-15); Calcium 10.0 mg/dL (8.7-10.4)
[2025-03-06 20:15] LABS: Carbon Dioxide 20 mmol/L (20-31)
[2025-03-06 20:17] LABS: Hematocrit 39.5 % (41.0-53.0); Hemoglobin 12.4 g/dL (13.5-17.5); Mean Corpuscular Hemoglobin 26.9 pg (28.0-32.0); Mean Corpuscular Volume 85.9 fL (80.0-100.0)
[2025-03-06 20:19] LABS: BUN/Creatinine Ratio 16.2 (10.0-20.0)
[2025-03-06 20:20] LABS: Blood Urea Nitrogen 28 mg/dL (9-23); Glucose 310 mg/dL (74-106)
[2025-03-06 20:28] LABS: Lactic Acid w/Reflex 5.2 mmol/L (0.4-2.0)
[2025-03-06 20:37] LABS: Base Excess -9.0 mmol/L (-2.0-3.0)
[2025-03-06] MEDS: VANCOMYCIN 1GM/200ML PM 200 ML IV ONE (20:45)
[2025-03-06] MEDS: cefTRIAXone 1GM/50ML D5W 50 ML IV ONE (20:45)
[2025-03-06] MEDS: ACETAMINOPHEN 650 MG RECT SUPP PR ONE (20:45)
[2025-03-06] MEDS: SODIUM CHLORIDE 0.9% 2,000 ML IV ONE (20:45)
[2025-03-06 20:49] LABS: Anisocytosis Slight; Total Cells Counted 100.0 (100)
[2025-03-06 21:00] VITALS: BP 129/95; PULSE 137; RESP 29; O2SAT 94
[2025-03-06] MEDS: fentaNYL Drip 2500mCg/250mlNS 250 ML IV SCH (21:00)
[2025-03-06] MEDS: MIDAZOLAM DRIP 50 mg/50mL 50 ML IV SCH (21:15)
--- NOTE | 2025-03-06 21:26 | DVH ---
CHEST RADIOGRAPH Indication: sob Technique: Single frontal view of the chest was obtained COMPARISON: CXRP on DOS: 08/04/22, CHEST PORTABLE on DOS: 08/04/22, CXRP on DOS: 08/03/22, CHEST PORT ABLE on DOS: 08/03/22, CXRP on DOS: 08/02/22 FINDINGS: Lines and Tubes: Endotracheal tube tip projects approximately 2.3 cm above the level of the silas. E nteric catheter courses below the level of diaphragm and terminates within the left upper quadrant, p resumably within the gastric lumen. Right subclavian central venous catheter projects over the cavoat rial junction. Lungs: Left basilar atelectasis. No evidence of focal consolidation. Pleura: No effusion. No pneumothorax. Cardiomediastinal contours: Unremarkable Bones: Unremarkable IMPRESSION: 1. No acute disease. 2. Lines and tubes as above.
[2025-03-06 22:13] VITALS: BP 110/82; PULSE 115; RESP 24; O2SAT 93
[2025-03-06 22:33] VITALS: BP 84/63; PULSE 96; RESP 24; O2SAT 96
[2025-03-06 22:52] LABS: Base Excess -5.6 mmol/L (-2.0-3.0)
[2025-03-06 22:53] VITALS: BP 110/82; PULSE 115; RESP 24; TEMP 100.4; O2SAT 93
[2025-03-06 23:31] LABS: Base Excess -6.0 mmol/L (-2.0-3.0)
[2025-03-06] MEDS: NOREPINEPHRINE 8 MG/250ML KIT 250 ML IV SCH (23:45)
[2025-03-07] VITALS (58 sets, daily range): BP systolic 76–116; BP diastolic 54–81; PULSE 62–92; RESP 12–26; TEMP 96.8–98.1; O2SAT 90–98
[2025-03-07] MEDS: SODIUM CHLORIDE 0.9% 1,000 ML IV ONE
[2025-03-07] MEDS ORDERED: MORPHINE SULFATE INJ 2 MG/ml SYRG IV PRN
[2025-03-07] MEDS ORDERED: ONDANSETRON HCL 4 MG/2 ML VIAL IV PRN
[2025-03-07] MEDS ORDERED: NITROGLYCERIN 0.4 MG SL TAB SL PRN
[2025-03-07] MEDS ORDERED: ACETAMINOPHEN 325 MG TAB PO PRN
[2025-03-07] MEDS ORDERED: VANCOMYCIN PER PHARMACY 0 MG IV SCH
--- NOTE | 2025-03-07 00:32 | DVH ---
EXAM: CT HEAD WITHOUT CONTRAST INDICATION: seizure TECHNIQUE: CT of the head without intravenous contrast. Radiation Dose : 1. Head: CT Dose: CTDI volume is 47.98 mGy. Dose-length product is 1000.17 mGy*cm The dose indicators for CT are the volume Computed Tomography (CT) Dose Index (CTDIvol) and the Dose Length Product (DLP), and are measured in units of mGy and mGy-cm, respectively. These indicators are not patient dose, but values generated from the CT scanner acquisition factors. The report includes radiation exposure data for exposures received during this examination. COMPARISON: None FINDINGS: There is no evidence of acute intracranial hemorrhage, extra-axial collection, mass effect, midline s hift, herniation or hydrocephalus. Increased prominence of the ventricles, sulci and cisterns is consistent with the sequelae of atrophi c cortical volume loss. The vu-white differentiation is intact. Moderate diffuse confluent periventricular and subcortical white matter hypoattenuation is nonspecifi c but may be related to small vessel ischemic disease. Diffuse pansinusitis. The mastoid air cells are clear. The surrounding soft tissues and osseous structures are unremarkable. Endotracheal tube and enteric catheter. IMPRESSION: 1. No acute intracranial abnormality. 2. Chronic sequelae of microvascular disease and atrophic cortical volume loss. 3. Endotracheal tube and enteric catheter. Radiation optimization: All CT scans at this facility use at least one of these dose optimization real hniques: automated exposure control mA and/or kV adjustment per patient size (includes targeted exam s where dose is matched to clinical indication) or iterative reconstruction.
--- NOTE | 2025-03-07 04:20 | DVHHP2 ---
History of Present Illness Reason for Visit: Altered mental status History of Present Illness 65-year-old male presents for evaluation of altered mental status. Patient was noted to have a seizure by family members. On arrival patient continued to be postictal and required emergent the patient for airway protection. Patient is currently intubated and sedated. No further history could be obtained at the moment. Past Medical History COPD, dementia, thyroid, seizures Past Surgical History Unknown Family History Unknown Smoke: No ALCOHOL: none Drugs: None Lives: with Family Review of Systems Review of Systems Review of systems are currently negative otherwise addressed in HPI. Allergies: Coded Allergies: NO KNOWN ALLERGIES (Unverified , 07/24/22) Medications Current Medications Medications Dose Ordered Sig/Andra Route Start Time Stop Time Status Last Admin Dose Admin Fentanyl Citrate 250 ml @ 2.5 mls/hr Q24H IV 03/06/25 21:00 Midazolam HCl 50 ml @ 1 mls/hr Q24H IV 03/06/25 21:15 Norepinephrine Bitartrate 250 ml @ 3.75 mls/hr Q24H IV 03/06/25 23:45 Vancomycin HCl 0 ml @ 0 mls/hr UD IV 03/07/25 00:00 UNV Piperacillin Sod/ Tazobactam Sod 100 ml @ 25 mls/hr Q8HR IV 03/07/25 06:00 Pantoprazole Sodium 40 mg DAILY IV 03/07/25 10:00 Ondansetron HCl 4 mg Q4HP PRN IV 03/07/25 00:00 Acetaminophen 650 mg Q6HP PRN PO 03/07/25 00:00 Nitroglycerin 0.4 mg Q5MINP PRN SL 03/07/25 00:00 Morphine Sulfate 2 mg Q30M PRN IV 03/07/25 00:00 Exam Vital Signs Vital Signs Date Time Temp Pulse Resp B/P (MAP) Pulse Ox O2 Delivery O2 Flow Rate FiO2 03/07/25 04:04 84 26 93/68 (76) 97 50 03/07/25 03:00 97.7 97.7 03/06/25 19:55 Room Air* 0 Exam Gen: 65-year-old male in mild distress Skin: Warm, dry, normal color and texture, no rash. HEENT: Normocephalic atraumatic, mucous membranes moist and pink. Neck: Cervical and supraclavicular nodes normal without enlargement, trachea is midline, thyroid gland is normal without masses. Pulmonary: Diminished breath sounds bilaterally Cardiac: Regular rate and rhythm. No murmur Abdomen: Soft, nontender, nondistended, bowel sounds present all 4 quadrants, no guarding, no rigidity, no organomegaly. Extremities: No cyanosis, clubbing, no edema Neuro: Cranial nerves II through XII grossly intact, normal affect and speech, no focal motor deficits. Labs/Xrays ORDERING PHYSICIAN: DALJIT GAMBINO MD PROCEDURE(s): CXRP - CHEST PORTABLE REASON: sob ORDER NUMBER(s): [id number], ACCESSION NUMBER(s): [id number] CHEST RADIOGRAPH Indication: sob Technique: Single frontal view of the chest was obtained COMPARISON: CXRP on DOS: 08/04/22, CHEST PORTABLE on DOS: 08/04/22, CXRP on DOS: 08/03/22, CHEST PORTABLE on DOS: 08/03/22, CXRP on DOS: 08/02/22 FINDINGS: Lines and Tubes: Endotracheal tube tip projects approximately 2.3 cm above the level of the silas. Enteric catheter courses below the level of diaphragm and terminates within the left upper quadrant, presumably within the gastric lumen. Right subclavian central venous catheter projects over the cavoatrial junction. Lungs: Left basilar atelectasis. No evidence of focal consolidation. Pleura: No effusion. No pneumothorax. Cardiomediastinal contours: Unremarkable Bones: Unremarkable IMPRESSION: 1. No acute disease. 2. Lines and tubes as above. RING PHYSICIAN: ADDISON TREVIÑO PROCEDURE(s): HWOCT - HEAD WITHOUT CONTRAST REASON: seizure ORDER NUMBER(s): [id number], ACCESSION NUMBER(s): [id number] EXAM: CT HEAD WITHOUT CONTRAST INDICATION: seizure TECHNIQUE: CT of the head without intravenous contrast. Radiation Dose : 1. Head: CT Dose: CTDI volume is 47.98 mGy. Dose-length product is 1000.17 mGy*cm The dose indicators for CT are the volume Computed Tomography (CT) Dose Index (CTDIvol) and the Dose Length Product (DLP), and are measured in units of mGy and mGy-cm, respectively. These indicators are not patient dose, but values generated from the CT scanner acquisition factors. The report includes radiation exposure data for exposures received during this examination. COMPARISON: None FINDINGS: There is no evidence of acute intracranial hemorrhage, extra-axial collection, mass effect, midline shift, herniation or hydrocephalus. Increased prominence of the ventricles, sulci and cisterns is consistent with the sequelae of atrophic cortical volume loss. The vu-white differentiation is intact. Moderate diffuse confluent periventricular and subcortical white matter hypoattenuation is nonspecific but may be related to small vessel ischemic disease. Diffuse pansinusitis. The mastoid air cells are clear. The surrounding soft tissues and osseous structures are unremarkable. Endotracheal tube and enteric catheter. IMPRESSION: 1. No acute intracranial abnormality. 2. Chronic sequelae of microvascular disease and atrophic cortical volume loss. 3. Endotracheal tube and enteric catheter. Radiation optimization: All CT scans at this facility use at least one of these dose optimization techniques: automated exposure control mA and/or kV adjustment per patient size (includes targeted exams where dose is matched to cl inical indication) or iterative reconstruction. Labs Test 03/06/25 23:26 03/06/25 22:19 03/06/25 21:26 03/06/25 19:55 Range/Units Blood Gas Specimen Type Arterial Blood Gas Sample Site Left radial Blood Gas Patient Temperature 37.0 Arterial Blood Date Drawn [id number] Arterial Blood pH 7.284 L 7.350-7.450 Arterial Blood Partial Pressure CO2 44.1 35.0-48.0 mmHg Arterial Blood Partial Pressure O2 92.3 83.0-108.0 mmHg Arterial Blood HCO3 20.4 L 21.0-28.0 mmol/L Arterial Blood Oxygen Saturation 96.1 94.0-98.0 % Arterial Blood Base Excess -6.0 L -2.0-3.0 mmol/L Arterial Blood Oxyhemoglobin 95.0 94.0-98.0 % Arterial Blood Carboxyhemoglobin 0.5 0.5-1.5 % Arterial Blood Methemoglobin 0.6 0.0-1.5 % Mateo Test Modified Blood Gas Total Hemoglobin 11.80 L 13.5-17.5 g/dL Blood Gas Set Respiration Rate 24.0 Blood Gas Modality Vent - ac Blood Gas Spontaneous Rate 24 FiO2 % 50.0 Blood Gas Tidal Volume 450.0 Blood Gas Spontaneous Tidal Volume 469 Blood Gas PEEP or CPAP 5.0 Bl Gas Inspiratory/Expiratory Ratio 1:2.3 Specimen Drawn By Hiwot arreguin rt Blood Gas Critical Value Read Back Yes Blood Gas Notified Whom Dr damaris hernandez Blood Gas Notified Time [id number] Blood Gas Notified By Hiwot arreguin rt Lactic Acid Level 2.6 *H 0.4-2.0 mmol/L White Blood Count 44.5 *H 4.4-10.8 10^3/uL Red Blood Count 4.59 4.5-5.90 10^6/uL Hemoglobin 12.4 L 13.5-17.5 g/dL Hematocrit 39.5 L 41.0-53.0 % Mean Corpuscular Volume 85.9 80.0-100.0 fL Mean Corpuscular Hemoglobin 26.9 L 28.0-32.0 pg Mean Corpuscular Hemoglobin Concent 31.3 L 32.0-36.0 g/dL Red Cell Distribution Width 17.1 H 11.8-14.3 % Platelet Count 404 140-450 10^3/uL Mean Platelet Volume 8.2 6.9-10.8 fL Neutrophils (%) (Auto) 37.0-80.0 % Lymphocytes (%) (Auto) 10.0-50.0 % Monocytes (%) (Auto) 0.0-12.0 % Basophils (%) (Auto) 0.0-2.0 % Neutrophils # (Auto) 1.6-8.6 10 ^3/uL Lymphocytes # (Auto) 0.4-5.4 10 ^3/uL Monocytes # (Auto) 0-1.3 10 ^3/uL Differential Total Cells Counted 100.0 100 Neutrophils % (Manual) 80 37.0-80.0 Band Neutrophils % (Manual) 7 Lymphocytes % (Manual) 6 L 10.0-50.0 Monocytes % (Manual) 7 0-12 Eosinophils % (Manual) 0 0-7 Basophils % (Manual) 0 0.0-2.0 Metamyelocytes % (manual) 0 Myelocytes % (Manual) 0 Promyelocytes % (Manual) 0 Blast Cells % (Manual) 0 Reactive Lymphocytes 0 Platelet Estimate Adequate Large Platelets Few Anisocytosis (manual) Slight Sodium Level 138 136-145 mmol/L Potassium Level 4.0 3.5-5.1 mmol/L Chloride Level 105 98-107 mmol/L Carbon Dioxide Level 20 20-31 mmol/L Anion Gap 13 5-15 Blood Urea Nitrogen 28 H 9-23 mg/dL Creatinine 1.73 H 0.700-1.30 mg/dL Glomerular Filtration Rate Calc 43 >90 mL/min BUN/Creatinine Ratio 16.2 10.0-20.0 Serum Glucose 310 H 74-106 mg/dL Calcium Level 10.0 8.7-10.4 mg/dL SEPSIS Sepsis Screen Date sepsis recognized/suspect: Mar 06, 2025 Time Sepsis recognized/suspect: 1954 Recent Procedure: No On Antibiotic Therapy: No Respiratory Rate >20: Yes Heart Rate >90: Yes Temp<36 C (96.8 F) or >38.3 C: No SBP <90 or MAP <65 mmHG: No New Acute Mental Status Change: No Is the patient on CPAP, BIPAP,: Yes Physician Orders Abg W/ Co-Ox (03/06/25 22:00) Ventilator Orders (03/06/25 20:38) Fentanyl Drip 2500mcg/250mlns (03/06/25 21:00) Rass Sedation Scale Q1HR (03/06/25 20:59) Urinalysis (03/06/25 21:09) Midazolam Drip 50 Mg/50ml (Versed Drip 5 (03/06/25 21:15) Ventilator Orders (03/06/25 22:31) Abg W/ Co-Ox (03/06/25 23:15) Norepinephrine 8 Mg/250ml Kit (Levophed) (03/06/25 23:45) Communication Order (03/06/25 23:37) Head Without Contrast (03/06/25 23:45) Vancomycin Per Pharmacy (03/07/25 00:00) Piperacillin-Tazob 3.375gm (Zosyn 3.375g (03/07/25 06:00) Sodium Chloride 0.9% (03/07/25 00:00) Pantoprazole (Protonix) (03/07/25 10:00) Admit (03/06/25 23:50) Ondansetron Hcl (Zofran) (03/07/25 00:00) Complete Blood Count (03/07/25 04:00) Comprehensive Metabolic Panel (03/07/25 04:00) Npo (Nothing By Mouth) Diet (03/07/25 Breakfast) Condition: Unstable (03/06/25 23:50) Acetaminophen Tablet (Tylenol Tablet) (03/07/25 00:00) Maintain Bed Rest (03/06/25 23:50) Sequential Compression Device (03/06/25 ) Nitroglycerin Sublingual (Ntrostat Subli (03/07/25 00:00) Morphine Sulfate Injection (03/07/25 00:00) Stat Ekg For Chest Pain (03/06/25 23:50) Notify Md Of Changes From Base (03/06/25 23:50) Forest Ranger For 24 Hours (03/06/25 23:50) Emergency Dysrhythmia Protocol (03/06/25 23:50) Rhythm Strips Once Every Shift (03/06/25 23:50) Oxygen By Nasal Cannula (03/06/25 23:50) Vital Signs Date Time Temp Pulse Resp B/P (MAP) Pulse Ox O2 Delivery O2 Flow Rate FiO2 03/07/25 04:04 84 26 93/68 (76) 97 50 03/07/25 03:00 97.7 86 23 88/65 (73) 96 97.7 03/07/25 02:15 97.7 91 24 96/69 (78) 96 97.7 03/07/25 02:00 97.7 94 24 101/75 (84) 96 97.7 03/07/25 01:45 97.7 97 24 128/87 (101) 97 97.7 03/07/25 01:30 97.7 94 22 101/77 (85) 96 97.7 03/07/25 01:21 91 24 101/77 (85) 97 50 03/07/25 01:15 97.7 91 24 110/80 (90) 97 97.7 03/07/25 01:00 97.7 89 24 113/89 (97) 97 97.7 03/07/25 00:45 97.7 88 23 116/89 (98) 97 97.7 03/07/25 00:30 97.7 88 24 109/80 (90) 97 97.7 03/07/25 00:15 97.6 88 24 88/64 (72) 100 97.6 03/07/25 00:00 97.6 97 24 88/64 (72) 96 97.6 03/06/25 23:45 97.5 97 24 82/59 (67) 96 97.5 03/06/25 23:30 97.5 98 24 92/68 (76) 98 97.5 03/06/25 23:15 97.5 99 18 93/70 (78) 95 97.5 03/06/25 23:00 97.7 102 20 97/72 (80) 94 97.7 03/06/25 22:53 100.4 115 24 110/82 93 50 100.4 03/06/25 22:45 97.9 106 23 100/71 (81) 95 97.9 03/06/25 22:33 96 24 84/63 (70) 96 50 03/06/25 22:30 98.2 111 24 110/82 (91) 94 98.2 03/06/25 22:15 98.4 116 24 122/90 (101) 93 98.4 03/06/25 22:13 115 24 110/82 (91) 93 50 03/06/25 22:00 99.0 117 26 117/94 (102) 94 99.0 03/06/25 21:45 124 27 117/84 (95) 94 03/06/25 21:30 127 30 126/95 (105) 94 03/06/25 21:15 133 31 117/89 (98) 94 03/06/25 21:00 138 44 124/70 (88) 94 03/06/25 21:00 137 29 129/95 (106) 94 50 03/06/25 20:45 142 34 117/78 (91) 94 03/06/25 20:32 50 03/06/25 20:30 145 34 149/93 (111) 94 Laboratory Tests Test 03/06/25 19:55 03/06/25 21:26 Lactic Acid Level 5.2 mmol/L (0.4-2.0) *H 2.6 mmol/L (0.4-2.0) *H White Blood Count 44.5 10^3/uL (4.4-10.8) *H Medications Medications Dose Ordered Sig/Andra Route Start Time Stop Time Status Last Admin Dose Admin Ceftriaxone Sodium 50 ml @ 100 mls/hr ONCE ONCE IV 03/06/25 20:45 03/06/25 21:14 DC 03/06/25 20:45 100 MLS/HR Etomidate 20 mg ONCE ONCE IV 03/06/25 19:45 03/06/25 19:46 DC 03/06/25 19:48 20 MG Sodium Chloride 1,000 ml @ 100 mls/hr Q10H ONCE IV 03/07/25 00:00 03/07/25 09:59 03/07/25 00:00 100 MLS/HR Sodium Chloride 2,000 ml @ 2,000 mls/hr ONCE ONCE IV 03/06/25 20:45 03/06/25 21:44 DC 03/06/25 20:45 2,000 MLS/HR Succinylcholine Chloride 60 mg ONCE ONCE IV 03/06/25 20:02 03/06/25 22:13 DC 03/06/25 20:02 60 MG Succinylcholine Chloride 80 mg ONCE ONCE IV 03/06/25 19:45 03/06/25 19:46 DC 03/06/25 19:49 80 MG Vancomycin HCl 200 ml @ 200 mls/hr ONCE ONCE IV 03/06/25 20:45 03/06/25 21:44 DC 03/06/25 20:45 200 MLS/HR Assessment/Plan Assessment/Plan Assessment Septic shock Metabolic encephalopathy Seizure activity Acute kidney injury Plan Admit the patient to ICU to the hospitalist Zosyn/vancomycin Maintenance IV fluids Continue treatment per orders. Total critical care time excluding procedures performed this 55 minutes. Plan discussed with: Patient My Orders Orders - ADDISON TREVIÑO AGACNP Procedure Category Date Status Time Head Without Contrast CT 03/06/25 Resulted 23:45 Vancomycin Per [facility] 03/07/25 Pending Pharmacy 00:00 Piperacillin-Tazob [facility] 03/07/25 In Process 3.375gm (Zosyn 3.375g 06:00 Sodium Chloride 0.9% [facility] 03/07/25 In Process 00:00 Pantoprazole [facility] 03/07/25 In Process (Protonix) 10:00 Admit ADMIT 03/06/25 Transmitted 23:50 Ondansetron Hcl [facility] 03/07/25 In Process (Zofran) 00:00 Complete Blood Count LAB 03/07/25 Logged 04:00 Comprehensive LAB 03/07/25 Logged Metabolic Panel 04:00 Npo (Nothing By DIET 03/07/25 Transmitted Mouth) Diet Breakfast Condition: Unstable [facility] 03/06/25 In Process 23:50 Acetaminophen Tablet [facility] 03/07/25 In Process (Tylenol Tablet) 00:00 Maintain Bed Rest [facility] 03/06/25 In Process 23:50 Sequential [facility] 03/06/25 In Process Compression Device Nitroglycerin [facility] 03/07/25 In Process Sublingual (Ntrostat 00:00 Morphine Sulfate [facility] 03/07/25 In Process Injection 00:00 Stat Ekg For Chest [facility] 03/06/25 In Process Pain 23:50 Notify Of Changes [facility] 03/06/25 In Process From Base 23:50 Forest Ranger For [facility] 03/06/25 In Process 24 Hours 23:50 Emergency Dysrhythmia [facility] 03/06/25 In Process Protocol 23:50 Rhythm Strips Once [facility] 03/06/25 In Process Every Shift 23:50 Oxygen By Nasal RT 03/06/25 Transmitted Cannula 23:50 Date of Service: Mar 06, 2025 Billing Provider: ADDISON TREVIÑO Common Visit Codes: [id number] CARE 30-74 MIN ADDISON TREVIÑO Mar 07, 2025 04:20
[2025-03-07 05:10] LABS: Mean Corpuscular Hemoglobin 27.4 pg (28.0-32.0); Mean Corpuscular Volume 84.7 fL (80.0-100.0)
[2025-03-07 05:14] LABS: Hematocrit 33.9 % (41.0-53.0); Hemoglobin 11.0 g/dL (13.5-17.5)
[2025-03-07 05:16] LABS: Alanine Aminotransferase 23 U/L (7-40); Alkaline Phosphatase 98 U/L (46-116); Anion Gap 11 (5-15); BUN/Creatinine Ratio 20.6 (10.0-20.0); Carbon Dioxide 21 mmol/L (20-31); Potassium 3.8 mmol/L (3.5-5.1); Sodium 141 mmol/L (136-145); Total Protein 6.9 g/dL (5.7-8.2)
[2025-03-07 05:17] LABS: Albumin 3.7 g/dL (3.2-4.8); Bilirubin, Total 0.8 mg/dL (0.2-1.0)
[2025-03-07 05:20] LABS: Blood Urea Nitrogen 28 mg/dL (9-23); Calcium 8.4 mg/dL (8.7-10.4); Chloride 109 mmol/L (98-107); Glucose 211 mg/dL (74-106)
[2025-03-07 06:09] LABS: Total Cells Counted 100.0 (100)
[2025-03-07] MEDS: PIPERACILLIN-TAZOB 3.375GM 100 ML IV SCH (06:11)
[2025-03-07 08:57] LABS: Base Excess -5.4 mmol/L (-2.0-3.0)
[2025-03-07] MEDS: PANTOPRAZOLE 40 MG/10 ML VIAL INJ IV SCH (11:03)
[2025-03-07] MEDS: levETIRAcetam 500 mg/100ml 100 ML IV SCH (11:03)
--- NOTE | 2025-03-07 12:35 | DVHINCON2 ---
Date of service: Mar 07, 2025 Referring Physician hospitalist Reason for Consultation galeas placement History of Present Illness History Source: Family, RN Notes, MD Notes Exam Limitations: Clinical condition, Physical impairment HPI 65 y.o male with PMHx of dementia, COPD, seizures, hypothyroidism, BPH and Parkinson's disease, presents to the ED via EMS for an evaluation of seizure episode today. EMS reports patient's daughter witness seizure today, tonic clonic, states he is on Keppra. Per daughter, patient has two seizures per day, last one was earlier today. EMS reports patient was tachycardiac at 150 with SPO2 of 93% on room air on scene. EMS placed patient on 4 liters of O2 via NC, bringing saturation up to 94%. Per daughter, patient is full code. He was intubated. pt has had a chronic galeas for unknown time. 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 RN asked for assistance with galeas placement. I was unable to pass a galeas due to contracted state and urethral erosion. He is incontinent. Home Meds Active Scripts Cefuroxime Axetil (Cefuroxime Axetil) 500 Mg Tab, 500 MG PO BID, #14 TAB Prov:FLORES HERNÁNDEZ MD 08/05/22 Linezolid (Zyvox) 600 Mg Tab, 600 MG PO BID, #14 TAB Prov:FLORES HERNÁNDEZ MD 08/05/22 Reported Medications Levothyroxine Sodium (Levothyroxine Sodium) 100 Mcg Tab, 100 MCG PO QAM for 30 Days, MCG 07/27/22 Senna (Senna Lax) 8.6 Mg Tab, 8.6 MG PO QHSP PRN for AGITATION, MG 07/27/22 Levetiracetam (Keppra) 500 Mg Tab, 500 MG PO BID, TAB 07/27/22 Benztropine Mesylate (Benztropine Mesylate) 0.5 Mg Tab, 0.5 MG PO DAILY, MG 07/27/22 Quetiapine Fumerate (Seroquel) 25 Mg Tab, 25 MG PO TID, TAB 07/27/22 Tamsulosin HCl (Tamsulosin Hydrochloride) 0.4 Mg Cap, 0.4 MG PO DAILY, CAP 07/27/22 H&P Exam Vital Signs Vital Signs Date Time Temp Pulse Resp B/P (MAP) Pulse Ox O2 Delivery O2 Flow Rate FiO2 03/07/25 12:15 70 24 101/79 (86) 96 03/07/25 10:05 45 03/07/25 08:00 96.8 96.8 03/06/25 19:55 Room Air* 0 Labs/Xrays Labs Test 03/07/25 08:08 03/07/25 04:02 03/07/25 04:00 03/06/25 23:26 Range/Units Blood Gas Specimen Type Arterial Blood Gas Sample Site Left radial Blood Gas Patient Temperature 37.0 Arterial Blood Date Drawn [id number] Arterial Blood pH 7.332 L 7.350-7.450 Arterial Blood Partial Pressure CO2 38.7 35.0-48.0 mmHg Arterial Blood Partial Pressure O2 92.5 83.0-108.0 mmHg Arterial Blood HCO3 20.0 L 21.0-28.0 mmol/L Arterial Blood Oxygen Saturation 96.8 94.0-98.0 % Arterial Blood Base Excess -5.4 L -2.0-3.0 mmol/L Arterial Blood Oxyhemoglobin 95.8 94.0-98.0 % Arterial Blood Carboxyhemoglobin 0.8 0.5-1.5 % Arterial Blood Methemoglobin 0.2 0.0-1.5 % Mateo Test Modified Blood Gas Total Hemoglobin 11.60 L 13.5-17.5 g/dL Blood Gas Set Respiration Rate 24.0 Blood Gas Modality Vent - ac FiO2 % 50.0 Blood Gas Tidal Volume 450.0 Blood Gas PEEP or CPAP 5.0 White Blood Count 35.0 *H 4.4-10.8 10^3/uL Red Blood Count 4.00 L 4.5-5.90 10^6/uL Hemoglobin 11.0 L 13.5-17.5 g/dL Hematocrit 33.9 #L 41.0-53.0 % Mean Corpuscular Volume 84.7 80.0-100.0 fL Mean Corpuscular Hemoglobin 27.4 L 28.0-32.0 pg Mean Corpuscular Hemoglobin Concent 32.4 32.0-36.0 g/dL Red Cell Distribution Width 16.7 H 11.8-14.3 % Platelet Count 417 140-450 10^3/uL Mean Platelet Volume 8.4 6.9-10.8 fL Neutrophils (%) (Auto) 37.0-80.0 % Lymphocytes (%) (Auto) 10.0-50.0 % Monocytes (%) (Auto) 0.0-12.0 % Basophils (%) (Auto) 0.0-2.0 % Neutrophils # (Auto) 1.6-8.6 10 ^3/uL Lymphocytes # (Auto) 0.4-5.4 10 ^3/uL Monocytes # (Auto) 0-1.3 10 ^3/uL Differential Total Cells Counted 100.0 100 Neutrophils % (Manual) 90 H 37.0-80.0 Band Neutrophils % (Manual) 0 Lymphocytes % (Manual) 4 L 10.0-50.0 Monocytes % (Manual) 6 0-12 Eosinophils % (Manual) 0 0-7 Basophils % (Manual) 0 0.0-2.0 Metamyelocytes % (manual) 0 Myelocytes % (Manual) 0 Promyelocytes % (Manual) 0 Blast Cells % (Manual) 0 Reactive Lymphocytes 0 Platelet Estimate Adequate Large Platelets Few Sodium Level 141 136-145 mmol/L Potassium Level 3.8 3.5-5.1 mmol/L Chloride Level 109 H 98-107 mmol/L Carbon Dioxide Level 21 20-31 mmol/L Anion Gap 11 5-15 Blood Urea Nitrogen 28 H 9-23 mg/dL Creatinine 1.36 H 0.700-1.30 mg/dL Glomerular Filtration Rate Calc 58 >90 mL/min BUN/Creatinine Ratio 20.6 H 10.0-20.0 Serum Glucose 211 H 74-106 mg/dL Calcium Level 8.4 L 8.7-10.4 mg/dL Total Bilirubin 0.8 0.2-1.0 mg/dL Aspartate Amino Transferase (AST) 26 13-40 U/L Alanine Aminotransferase (ALT) 23 7-40 U/L Alkaline Phosphatase 98 46-116 U/L Total Protein 6.9 5.7-8.2 g/dL Albumin 3.7 3.2-4.8 g/dL Blood Gas Spontaneous Rate 24 Blood Gas Spontaneous Tidal Volume 469 Bl Gas Inspiratory/Expiratory Ratio 1:2.3 Specimen Drawn By Hiwot arreguin rt Test 03/06/25 22:19 03/06/25 21:26 03/06/25 19:55 Range/Units Blood Gas Critical Value Read Back Yes Blood Gas Notified Whom Dr damaris hernandez Blood Gas Notified Time [id number] Blood Gas Notified By Hiwot arreguin rt Lactic Acid Level 2.6 *H 0.4-2.0 mmol/L Anisocytosis (manual) Slight Microbiology Date/Time Source Procedure Growth Status 03/06/25 17:55 Sputum Gram Stain - Final Resulted 03/06/25 17:55 Sputum Respiratory Culture - Preliminary Resulted Assessment/Plan Problem List: (1) 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
--- NOTE | 2025-03-07 13:00 | DVH ---
INDICATION: INTUBATED TECHNIQUE: Frontal view of the chest. COMPARISON: XY CHEST PORTABLE on DOS: 03/06/25, CXRP on DOS: 08/04/22, CHEST PORTABLE on DOS: 08/04/22 , CXRP on DOS: 08/03/22, CHEST PORTABLE on DOS: 08/03/22 FINDINGS: Lines and Tubes: Endotracheal tube tip projects approximately 2.3 cm above the level of the silas. E nteric catheter courses below the level of diaphragm and terminates within the left upper quadrant, p resumably within the gastric lumen. Right subclavian central venous catheter projects over the cavoat rial junction. Lungs: Left basilar atelectasis. No evidence of focal consolidation. Pleura: No effusion. No pneumothorax. Cardiomediastinal contours: Unremarkable Bones: Unremarkable IMPRESSION: 1. No acute disease. 2. Lines and tubes as above.
--- NOTE | 2025-03-07 13:29 | DVHPNRES ---
Progress Note Date Seen: Mar 07, 2025 Resident Creating Document: JESENIA QUIROS RESIDENT Has the PT tested + for MRSA If YES, has PT been informed?: No Medical Necessity Reason Pt with a Central, PICC or Fol: Yes Subjective Review of Systems 65-year-old male with history of dementia, COPD, seizures, hypothyroidism, BPH, and Parkinson's disease? presented via EMS after a witnessed generalized tonic- clonic seizure. Per EMS, patient was tachycardic to 150 bpm and hypoxic with SpO2 of 93% on room air. Family confirmed two prior seizures today and reported Keppra use. Patient was intubated on arrival for airway protection due to postictal mental status. He remains sedated and mechanically ventilated. Head ct scan: 1. No acute intracranial abnormality. 2. Chronic sequelae of microvascular disease and atrophic cortical volume loss. 3. Endotracheal tube and enteric catheter. PAST MEDICAL HISTORY: COPD, Dementia, Seizures, Hypothyroidism BPH and parkinson's Surgical History: multiple galeas catheters and suprapubic that patient removed Family History Family History: Unknown Social History Smoker: Non-Smoker Alcohol: Denies ETOH Use Drugs: Denies Drug Use Lives In: Home Objective vital signs Vital Sign Date Time Temp Pulse Resp B/P (MAP) Pulse Ox O2 Delivery O2 Flow Rate FiO2 03/07/25 12:30 87/65 03/07/25 12:15 70 24 96 03/07/25 10:05 45 03/07/25 08:00 96.8 96.8 03/06/25 19:55 Room Air* 0 Total Intake and Output 03/06/25 03/06/25 03/07/25 15:00 23:00 07:00 Intake Total 1255.0 ml 2605.0 ml Balance 1255.0 ml 2605.0 ml medications Current Medications Medications Dose Ordered Sig/Andra Route Start Time Stop Time Status Last Admin Dose Admin Fentanyl Citrate 250 ml @ 2.5 mls/hr Q24H IV 03/06/25 21:00 03/06/25 21:00 2.5 MLS/HR Midazolam HCl 50 ml @ 1 mls/hr Q24H IV 03/06/25 21:15 03/07/25 10:30 15 MLS/HR Norepinephrine Bitartrate 250 ml @ 3.75 mls/hr Q24H IV 03/06/25 23:45 03/06/25 23:45 3.75 MLS/HR Vancomycin HCl 0 ml @ 0 mls/hr UD IV 03/07/25 00:00 Piperacillin Sod/ Tazobactam Sod 100 ml @ 25 mls/hr Q8HR IV 03/07/25 06:00 03/07/25 06:11 25 MLS/HR Pantoprazole Sodium 40 mg DAILY IV 03/07/25 10:00 03/07/25 11:03 40 MG Ondansetron HCl 4 mg Q4HP PRN IV 03/07/25 00:00 Acetaminophen 650 mg Q6HP PRN PO 03/07/25 00:00 Nitroglycerin 0.4 mg Q5MINP PRN SL 03/07/25 00:00 Morphine Sulfate 2 mg Q30M PRN IV 03/07/25 00:00 Albuterol 2.5 mg Q6HPRN PRN NEB 03/07/25 04:15 Levetiracetam 100 ml @ 400 mls/hr BID IV 03/07/25 10:00 03/07/25 11:03 400 MLS/HR Examination Gen: 65-year-old male in intubated, with severe contractures Skin: Warm, dry, normal color and texture, no rash. HEENT: Normocephalic atraumatic, mucous membranes moist and pink. Neck: Cervical and supraclavicular nodes normal without enlargement, trachea is midline, thyroid gland is normal without masses. Pulmonary: Diminished breath sounds bilaterally Cardiac: Regular rate and rhythm. No murmur Abdomen: Soft, nontender, nondistended, bowel sounds present all 4 quadrants, no guarding, no rigidity, no organomegaly. : purulent discharge between the testes, the ureteral meatus in the penil shaft due to multiple galeas catheters, bladder scan 330 cc Extremities: No cyanosis, clubbing, no edema Neuro: Cranial nerves II through XII grossly intact, normal affect and speech, no focal motor deficits. laboratory and microbiology Laboratory Tests 03/07/25 04:02 Test 03/07/25 04:02 Range/Units Serum Glucose 211 H 74-106 mg/dL Microbiology Date/Time Source Procedure Growth Status 03/06/25 17:55 Sputum Gram Stain - Final Resulted 03/06/25 17:55 Sputum Respiratory Culture - Preliminary Resulted Problem List/Assessment/Plan Problem List/Assessment/Plan Neurology: #Acute metabolic encephalopathy due to septic shock, dementia #previous history of stroke #Breakthrough seizures, possible secondary to septic shock #Previous history of seizures Head Ct scan: 1. No acute intracranial abnormality. 2. Chronic sequelae of microvascular disease and atrophic cortical volume loss. 3. Endotracheal tube and enteric catheter. fentanyl and midazolam drip RASS -3 Keppra IV Bid Cardiology: #septic shock secondary to complicated UTI/ pneumonia #Possible heart failure with systolic dysfunction, chronic levophed 6 mcg ECHO: very limited study lvef >45%, cannot be more accurate RV mild dysfunction atria not well seen valves not well assessed normal IVC trivial pericardial effusion noted Pending BNP Respiratory #Acute hypercapnic respiratory failure #COPD exacerbation #Possible gram positive/gram negative pneumonia TV 450 RR 24 PEEP 5 Fio2 35 AB/21: metabolic acidosis with appropiate respiratory compensation Meropenem + vancomycin #GI #Constipation no tube feedings for now last bowel movement per daughter 03/04/25 #Renal #Septic shock due to complicated UTI #Atrophic left kidney with mild left hydroureteronephrosis. #Mild inflammatory changes associated with the left kidney and left collecting system possibly representing pyelonephritis. #Prostatomegaly with secondary findings to suggest chronic bladder outlet obstruction. #YARA due to VMN and chronic bladder outlet obstruction, resolving patient has erosion in his glande due to chronic foleys, patient also pulled out previous suprapubic catheter urology was consulted: they recommend conservative management patient urinates spontaneously, bladder scan 330cc order for suprapubic catheter placement: but family refuses we will continue meropenem+ vancomycin IV fluids:NS 75 cc/h creatinine is trending down #Metabolic: #Euthyroid sickness syndrome low TSH, normal T3 and T4 normal A1C #Lactic acidosis at admission #Heme/onc #Leukocytosis with bandemia resolving #Anemia normocytic hypochromic, on the set of sepsis monitor Case discussed with Dr Chapin Time spent on care 92 min excluding procedures Case extensively discussed with domo Voss Full code during this hospitalization, pateint will come back to hospice after discharge DVT prophylaxis: enoxaparin 40 mg sc PUD prophylaxis: protonix IV Plan discussed with: Daughter My Orders My Orders Orders - JESENIA QUIROS Procedure Category Date Status Time Urinalysis LAB 03/07/25 Logged 09:44 Chst Ab Pel Wo Con-No CT 03/07/25 Taken Iv/Oral 10:00 Chest Portable XY 03/07/25 Resulted 11:30 * Urology Consult CONS 03/07/25 Transmitted 11:43 Echo 2d Mode Cardiac US 03/07/25 Logged DOP 12:03 Wound Culture W/ Gs ZOHREH 03/07/25 In Process 12:10 Date of Service: Mar 07, 2025 Billing Provider: ADDISON CHAPIN MD Common Visit Codes: 03741-[id number] CARE 30-74 MIN, [id number] CARE-EACH +30MIN JESENIA QUIROS RESIDENT Mar 07, 2025 13:29 ADDISON CHAPIN MD Mar 08, 2025 16:37
--- NOTE | 2025-03-07 13:56 | DVHSR ---
APPROVED REPORT EXAM: LIMITED Two-dimensional and M-mode echocardiogram with Doppler and color Doppler. Blood Pressure: 87/65 mmHg INDICATION Septic shock RISK FACTORS Height: 67, Weight: 120 DIMENSIONS LVDd4.6 (3.8-5.7cm)LA (2D) (1.9-4.0cm)Aortic Root (2.0-3.7cm) LVDs3.9 (2.5-4.0cm)LA (MM) (1.9-4.0cm)Aortic Cusp Exc (1.5-2.0cm) EF (%) 33.0 (55-70%)Rt. Atrium (1.9-4.0cm)Asc. Aorta cm Mitral Valve MitralMitral Stenosis E/A ratio0.02D MVAcm2 Tricuspid Valve TR Velocity2.01m/s [id number] Other Information Technically limited study due to body habitus, patient position and patient on a vent Conclusion very limited study lvef >45%, cannot be more accurate RV mild dysfunction atria not well seen valves not well assessed normal IVC trivial pericardial effusion noted
--- NOTE | 2025-03-07 14:39 | DVH ---
Exam: CT CHST AB PEL WO CON-NO IV/ORAL History: septic shock, possible pneumonia, testicular or abdominal pr Comparison Study: None Technique: Multidetector spiral CT of the chest, abdomen and pelvis was performed from lower neck to pubic symphysis Axial, coronal and sagittal multiplanar reformats were performed by the technologist on a separate workstation. Radiation Dose : 1. Chest/Abdomen/Pelvis: CTDIvol 12.7 mGy, DLP 816.7 mGy*cm. Findings: Lower neck: Right central venous catheter in satisfactory position. Endotracheal tube in satisfactory position. Lungs: Severe centrilobular emphysema. Dependent atelectasis. Multifocal peripheral nodular airspace opacities. Heart/Vascular Structures: Cardiomegaly. Lymph Nodes: No adenopathy Pleura: No pleural effusion or significant pneumothorax. Liver: The liver is normal in size. No focal lesions. Normal hepatic vascular enhancement. Gallbladder and Biliary Tree: Unremarkable Spleen: Unremarkable Pancreas: The pancreas is normal in appearance without focal lesions or abnormal enhancement. Adrenal Glands: Unremarkable Kidneys: 0.2 cm nonobstructing stone in the right upper pole. No right hydronephrosis. Atrophic left kidney with mild left hydroureteronephrosis without appreciable obstructing stone or ma ss. Bladder: Numerous bladder diverticulum are present. Numerous bladder calculi are present. Bowel: Enteric catheter in the stomach. Moderate colonic stool. The appendix is not visualized; govea herminio, no secondary findings of acute appendicitis identified. Ascites: Absent Lymphadenopathy: No mesenteric, retroperitoneal or periportal lymphadenopathy. Abdominal Wall and Mesentery: Unremarkable. Vasculature: The visualized abdominal aorta is normal in size and caliber. Abdominal and pelvic vess els demonstrate normal enhancement. Pelvic Organs: Prostate is enlarged. Musculoskeletal: No aggressive focal bony lesions, acute fractures or dislocation. Scoliosis. IMPRESSION: Atrophic left kidney with mild left hydroureteronephrosis. No appreciable obstructing stone or mass. Mild inflammatory changes associated with the left kidney and left collecting system possibly repres enting pyelonephritis. Prostatomegaly with secondary findings to suggest chronic bladder outlet obstruction. Multifocal airspace disease in the lungs suspicious for multifocal infection.
[2025-03-07] MEDS: SODIUM CHLORIDE 0.9% 1,000 ML IV SCH (16:00)
[2025-03-07] MEDS: VANCOMYCIN 1.25GM/250ML 250 ML IV ONE (16:30)
[2025-03-07 16:36] LABS: INR 1.08 (0.9-1.15); Partial Thromboplastin Time 31.3 SEC (24.5-34.5); Prothrombin Time 11.4 sec (9.3-11.8)
[2025-03-07] MEDS: MEROPENEM 1GM IVPB 50 ML IV ONE (18:06)
[2025-03-07] MEDS: MEROPENEM 1GM IVPB 50 ML IV SCH (21:35)
[2025-03-08] VITALS (112 sets, daily range): BP systolic 77–122; BP diastolic 54–87; PULSE 46–82; RESP 6–28; TEMP 97.9–99.9; O2SAT 93–100
--- NOTE | 2025-03-08 00:42 | DVH ---
CHEST RADIOGRAPH Indication: pneumonia Technique: Single frontal view of the chest was obtained COMPARISON: XY CHEST PORTABLE on DOS: 03/07/25, XY CHEST PORTABLE on DOS: 03/06/25, CXRP on DOS: , CHEST PORTABLE on DOS: 08/04/22, CXRP on DOS: 08/03/22 FINDINGS: Lines and Tubes: Unchanged. Lungs: Stable bibasilar infiltrate and/or atelectasis. The upper lung zones are clear. Pleura: No effusion. No pneumothorax. Cardiomediastinal contours: Unremarkable Bones: Unremarkable IMPRESSION: 1. Stable bibasilar infiltrate and/or atelectasis. 2. Lines and tubes unchanged.
[2025-03-08 04:08] LABS: Hematocrit 30.8 % (41.0-53.0); Hemoglobin 9.9 g/dL (13.5-17.5); Mean Corpuscular Hemoglobin 27.3 pg (28.0-32.0); Mean Corpuscular Volume 85.2 fL (80.0-100.0)
[2025-03-08 04:34] LABS: Alanine Aminotransferase 19 U/L (7-40); Albumin 3.5 g/dL (3.2-4.8); Alkaline Phosphatase 105 U/L (46-116); Anion Gap 11 (5-15); BUN/Creatinine Ratio 18.6 (10.0-20.0); Bilirubin, Total 0.7 mg/dL (0.2-1.0); Blood Urea Nitrogen 21 mg/dL (9-23); Calcium 9.3 mg/dL (8.7-10.4); Carbon Dioxide 21 mmol/L (20-31); Potassium 4.2 mmol/L (3.5-5.1); Total Protein 6.7 g/dL (5.7-8.2)
[2025-03-08 04:40] LABS: Chloride 113 mmol/L (98-107); Glucose 108 mg/dL (74-106); Sodium 145 mmol/L (136-145)
[2025-03-08 04:57] LABS: Total Cells Counted 100.0 (100)
[2025-03-08 06:59] LABS: Free T3 1.72 pg/mL (2.3-4.2)
[2025-03-08 07:00] LABS: Free T4 (Free Thyroxine) 1.05 ng/dL (0.89-1.76)
[2025-03-08 07:12] LABS: Base Excess -4.5 mmol/L (-2.0-3.0)
[2025-03-08] MEDS: ENOXAPARIN SOD 40 MG/0.4 ML SYRINGE SC SCH (10:10)
[2025-03-08] MEDS: PANTOPRAZOLE 40 MG/10 ML VIAL INJ IV SCH (10:10)
[2025-03-08] MEDS: NOREPINEPHRINE 8 MG/250ML KIT 250 ML IV SCH (13:00)
[2025-03-08] MEDS: VANCOMYCIN 500mg/100mL 100 ML IV ONE (17:22)
[2025-03-08] MEDS ORDERED: NutriHep RTU 240 mL Unflavored GT SCH (17:45)
[2025-03-08] MEDS: FINASTERIDE 5 MG TAB PO SCH (17:45)
--- NOTE | 2025-03-08 17:58 | DVHPNRES ---
Progress Note Date Seen: Mar 08, 2025 Resident Creating Document: JESENIA QUIROS RESIDENT Has the PT tested + for MRSA If YES, has PT been informed?: No Medical Necessity Reason Pt with a Central, PICC or Fol: Yes Subjective Review of Systems 65-year-old male with history of dementia, COPD, seizures, hypothyroidism, BPH, and Parkinson's disease? presented via EMS after a witnessed generalized tonic- clonic seizure. Per EMS, patient was tachycardic to 150 bpm and hypoxic with SpO2 of 93% on room air. Family confirmed two prior seizures today and reported Keppra use. Patient was intubated on arrival for airway protection due to postictal mental status. He remains sedated and mechanically ventilated. Head ct scan: 1. No acute intracranial abnormality. 2. Chronic sequelae of microvascular disease and atrophic cortical volume loss. 3. Endotracheal tube and enteric catheter. PAST MEDICAL HISTORY: COPD, Dementia, Seizures, Hypothyroidism BPH and parkinson's Surgical History: multiple galeas catheters and suprapubic that patient removed Family History Family History: Unknown Social History Smoker: Non-Smoker Alcohol: Denies ETOH Use Drugs: Denies Drug Use Lives In: Home 03/08/25: CT scan showed Atrophic left kidney with mild left hydroureteronephrosis, Mild inflammatory changes associated with the left kidney and left collecting system possibly representing pyelonephritis and Prostatomegaly with secondary findings to suggest chronic bladder outlet obstruction, IR was consulted for suprapubic catheter but family refused due to previous suprapubic that patient removed, patient is voiding, pressors are titrating down, cotninue meropenem and vancomycin Objective vital signs Vital Sign Date Time Temp Pulse Resp B/P (MAP) Pulse Ox O2 Delivery O2 Flow Rate FiO2 03/08/25 16:16 55 24 104/71 (82) 100 35 03/08/25 16:05 Mechanical Ventilator+ 03/08/25 15:45 99.7 211.5 03/07/25 19:30 0 Total Intake and Output 03/07/25 03/07/25 03/08/25 15:00 23:00 07:00 Intake Total 533.75 ml 1482.00 ml 947.50 ml Balance 533.75 ml 1482.00 ml 947.50 ml medications Current Medications Medications Dose Ordered Sig/Andra Route Start Time Stop Time Status Last Admin Dose Admin Fentanyl Citrate 250 ml @ 2.5 mls/hr Q24H IV 03/06/25 21:00 03/08/25 12:08 15 MLS/HR Midazolam HCl 50 ml @ 1 mls/hr Q24H IV 03/06/25 21:15 03/08/25 17:31 10 MLS/HR Vancomycin HCl 0 ml @ 0 mls/hr UD IV 03/07/25 00:00 Albuterol 2.5 mg Q6HPRN PRN NEB 03/07/25 04:15 Levetiracetam 100 ml @ 400 mls/hr BID IV 03/07/25 10:00 03/08/25 10:10 400 MLS/HR Pantoprazole Sodium 40 mg DAILY IV 03/08/25 10:00 03/08/25 10:10 40 MG Enoxaparin Sodium 40 mg DAILY SC 03/08/25 10:00 03/08/25 10:10 40 MG Meropenem 50 ml @ 17 mls/hr Q8HR IV 03/07/25 22:00 03/08/25 14:06 17 MLS/HR Sodium Chloride 1,000 ml @ 75 mls/hr [id number] IV 03/07/25 16:00 03/08/25 16:00 75 MLS/HR Norepinephrine Bitartrate 250 ml @ 3.75 mls/hr Q24H IV 03/08/25 13:00 03/08/25 13:00 5.625 MLS/HR Finasteride 5 mg DAILY PO 03/08/25 17:45 Tamsulosin HCl 0.4 mg QPM PO 03/08/25 18:00 Enteral Nutritional Formula 240 ml 30ML/HR GT 03/08/25 17:45 Examination Gen: 65-year-old male in intubated, with severe contractures Skin: Warm, dry, normal color and texture, no rash. HEENT: Normocephalic atraumatic, mucous membranes moist and pink. Neck: Cervical and supraclavicular nodes normal without enlargement, trachea is midline, thyroid gland is normal without masses. Pulmonary: Diminished breath sounds bilaterally Cardiac: Regular rate and rhythm. No murmur Abdomen: Soft, nontender, nondistended, bowel sounds present all 4 quadrants, no guarding, no rigidity, no organomegaly. : purulent discharge between the testes, the ureteral meatus in the penil shaft due to multiple galeas catheters, bladder scan 330 cc Extremities: No cyanosis, clubbing, no edema Neuro: Cranial nerves II through XII grossly intact, normal affect and speech, no focal motor deficits. laboratory and microbiology Laboratory Tests 03/08/25 03:04 Test 03/08/25 03:04 Range/Units Serum Glucose 108 #H 74-106 mg/dL Microbiology Date/Time Source Procedure Growth Status 03/07/25 12:10 Penis Gram Stain - Final Resulted 03/07/25 12:10 Penis Wound Culture - Preliminary Resulted 03/06/25 19:55 Blood Blood Culture - Preliminary NO GROWTH AFTER 24 HOURS OF INCUBATION. Resulted 03/06/25 17:55 Sputum Gram Stain - Final Complete 03/06/25 17:55 Respiratory Culture - Final Escherichia coli Klebsiella oxytoca Complete Problem List/Assessment/Plan Problem List/Assessment/Plan Neurology: #Acute metabolic encephalopathy due to septic shock, dementia #previous history of stroke #Breakthrough seizures, possible secondary to septic shock #Previous history of seizures Head Ct scan: 1. No acute intracranial abnormality. 2. Chronic sequelae of microvascular disease and atrophic cortical volume loss. 3. Endotracheal tube and enteric catheter. fentanyl and midazolam drip RASS -3 Keppra IV Bid Cardiology: #septic shock secondary to complicated UTI/ pneumonia #Possible heart failure with systolic dysfunction, chronic levophed 4 mcg ECHO: very limited study lvef >45%, cannot be more accurate RV mild dysfunction atria not well seen valves not well assessed normal IVC trivial pericardial effusion noted BNP normal Respiratory #Acute hypercapnic respiratory failure #COPD exacerbation #Possible gram positive/gram negative pneumonia TV 450 RR 24 PEEP 5 Fio2 35 AB/21: metabolic acidosis with appropriate respiratory compensation 03/08: ABG is showing mild metabolic acidosis Meropenem + vancomycin #GI #Constipation start tube feedings last bowel movement per daughter 03/04/25 #Renal #Septic shock due to complicated UTI #Atrophic left kidney with mild left hydroureteronephrosis. #Mild inflammatory changes associated with the left kidney and left collecting system possibly representing pyelonephritis. #Prostatomegaly with secondary findings to suggest chronic bladder outlet obstruction. #YARA due to VMN and chronic bladder outlet obstruction, resolving patient has erosion in his glande due to chronic foleys, patient also pulled out previous suprapubic catheter urology was consulted: they recommend conservative management patient urinates spontaneously, bladder scan 330cc and then 90 cc order for suprapubic catheter placement: but family refuses we will continue meropenem+ vancomycin IV fluids:NS 75 cc/h creatinine is trending down start finasteride and tamsulosin #Metabolic: #Euthyroid sickness syndrome low TSH, normal T3 and T4 normal A1C #Lactic acidosis at admission #Heme/onc #Leukocytosis with bandemia resolving #Anemia normocytic hypochromic, on the set of sepsis monitor Case discussed with Dr Chapin critical Time spent on care 84 min excluding procedures Case extensively discussed with daughter Danica Full code during this hospitalization, patient will come back to hospice after discharge Lines: right subclavian CVC 03/06/25 ETT 03/06/25 No galeas DVT prophylaxis: enoxaparin 40 mg sc PUD prophylaxis: protonix IV Plan discussed with: Daughter My Orders My Orders Orders - JESENIA QUIROS Procedure Category Date Status Time Chest Xray 1 View XY 03/08/25 Resulted 04:00 Abg W/ Co-Ox RT 03/08/25 Logged 04:00 * Wound Consult CONS 03/08/25 Transmitted Mrsa Screen [id number] 03/08/25 Logged 15:00 Norepinephrine 8 PHA 03/08/25 In Process Mg/250ml Kit 13:00 Finasteride Tablet PHA 03/08/25 In Process (Proscar Tablet) 17:45 Tamsulosin PHA 03/08/25 In Process Hydrochloride (Flomax) 18:00 Nutritional PHA 03/08/25 In Process Supplement (Nutrihep 17:45 Cover Wound With Foam MARVIN 03/08/25 In Process Dressing 16:23 Apply Z-Guard MARVIN 03/08/25 In Process 16:23 * Dietary Consult CONS 03/08/25 Transmitted 17:47 Complete Blood Count LAB 03/09/25 Verified 04:00 Comprehensive LAB 03/09/25 Verified Metabolic Panel 04:00 Chest Xray 1 View XY 03/09/25 Logged 04:00 Abg W/ Co-Ox RT 03/09/25 Logged 04:00 Date of Service: Mar 08, 2025 Billing Provider: ADDISON CHAPIN MD Common Visit Codes: 64435-[id number] CARE 30-74 MIN, [id number]-ROIOFEXT CARE-EACH +30MIN JESENIA QUIROS RESIDENT Mar 08, 2025 17:58 ADDISON CHAPIN MD Mar 09, 2025 14:23
[2025-03-08] MEDS: TAMSULOSIN HYDROCHLORIDE 0.4 MG CAP PO SCH (18:00)
[2025-03-09] VITALS (106 sets, daily range): BP systolic 88–127; BP diastolic 55–82; PULSE 46–71; RESP 8–34; TEMP 97.2–100.4; O2SAT 91–100
--- NOTE | 2025-03-09 00:48 | DVH ---
CHEST RADIOGRAPH Indication: intubated Technique: Single frontal view of the chest was obtained COMPARISON: XY CHEST XRAY 1 VIEW on DOS: 03/08/25, XY CHEST PORTABLE on DOS: 03/07/25, XY CHEST PORTABL E on DOS: 03/06/25, CXRP on DOS: 08/04/22, CHEST PORTABLE on DOS: 08/04/22 FINDINGS: Lines and Tubes: Unchanged. Lungs: Bibasilar atelectasis. No focal consolidation. Pleura: No effusion. No pneumothorax. Cardiomediastinal contours: Unremarkable Bones: Unremarkable IMPRESSION: 1. No acute disease. Bibasilar atelectasis. 2. Lines and tubes unchanged.
[2025-03-09 06:14] LABS: Hematocrit 29.7 % (41.0-53.0); Hemoglobin 9.7 g/dL (13.5-17.5); Mean Corpuscular Hemoglobin 27.7 pg (28.0-32.0); Mean Corpuscular Volume 85.0 fL (80.0-100.0); Nucleated Red Blood Cells % 0.1 %
[2025-03-09 06:32] LABS: Base Excess -7.0 mmol/L (-2.0-3.0)
[2025-03-09 06:48] LABS: Alanine Aminotransferase 18 U/L (7-40); Albumin 3.4 g/dL (3.2-4.8); Alkaline Phosphatase 96 U/L (46-116); Anion Gap 10 (5-15); BUN/Creatinine Ratio 22.8 (10.0-20.0); Blood Urea Nitrogen 18 mg/dL (9-23); Calcium 9.2 mg/dL (8.7-10.4); Carbon Dioxide 23 mmol/L (20-31); Glucose 83 mg/dL (74-106); Potassium 3.8 mmol/L (3.5-5.1); Total Protein 6.2 g/dL (5.7-8.2)
[2025-03-09 06:49] LABS: Bilirubin, Total 0.9 mg/dL (0.2-1.0)
[2025-03-09 07:01] LABS: Chloride 116 mmol/L (98-107); Sodium 149 mmol/L (136-145)
[2025-03-09] MEDS: FINASTERIDE 5 MG TAB GT SCH (10:14)
[2025-03-09] MEDS ORDERED: NutriHep RTU 240 mL Unflavored GT SCH (15:00)
--- NOTE | 2025-03-09 15:10 | DVHPNRES ---
Progress Note Date Seen: Mar 09, 2025 Resident Creating Document: JESENIA QUIROS RESIDENT Has the PT tested + for MRSA If YES, has PT been informed?: No Medical Necessity Reason Pt with a Central, PICC or Fol: Yes Subjective Review of Systems 65-year-old male with history of dementia, COPD, seizures, hypothyroidism, BPH, and Parkinson's disease? presented via EMS after a witnessed generalized tonic- clonic seizure. Per EMS, patient was tachycardic to 150 bpm and hypoxic with SpO2 of 93% on room air. Family confirmed two prior seizures today and reported Keppra use. Patient was intubated on arrival for airway protection due to postictal mental status. He remains sedated and mechanically ventilated. Head ct scan: 1. No acute intracranial abnormality. 2. Chronic sequelae of microvascular disease and atrophic cortical volume loss. 3. Endotracheal tube and enteric catheter. PAST MEDICAL HISTORY: COPD, Dementia, Seizures, Hypothyroidism BPH and parkinson's Surgical History: multiple galeas catheters and suprapubic that patient removed Family History Family History: Unknown Social History Smoker: Non-Smoker Alcohol: Denies ETOH Use Drugs: Denies Drug Use Lives In: Home 03/08/25: CT scan showed Atrophic left kidney with mild left hydroureteronephrosis, Mild inflammatory changes associated with the left kidney and left collecting system possibly representing pyelonephritis and Prostatomegaly with secondary findings to suggest chronic bladder outlet obstruction, IR was consulted for suprapubic catheter but family refused due to previous suprapubic that patient removed, patient is voiding, pressors are titrating down, continue meropenem and vancomycin 03/09/25: bradycardia, lowest 48, sedation vacation was started but patient started to be agitated, was put on again on sedation, wbc is trending down, oatient continues to have spontaneous diuresis Objective vital signs Vital Sign Date Time Temp Pulse Resp B/P (MAP) Pulse Ox O2 Delivery O2 Flow Rate FiO2 03/09/25 14:45 99.7 52 24 92/63 (73) 97 211.5 03/09/25 14:00 Mechanical Ventilator+ 30 30 03/07/25 19:30 0 Total Intake and Output 03/08/25 03/08/25 03/09/25 15:00 23:00 07:00 Intake Total 934.564 ml 822.566 ml 824.752 ml Balance 934.564 ml 822.566 ml 824.752 ml medications Current Medications Medications Dose Ordered Sig/Andra Route Start Time Stop Time Status Last Admin Dose Admin Fentanyl Citrate 250 ml @ 2.5 mls/hr Q24H IV 03/06/25 21:00 03/09/25 04:16 15 MLS/HR Midazolam HCl 50 ml @ 1 mls/hr Q24H IV 03/06/25 21:15 03/09/25 12:17 8 MLS/HR Vancomycin HCl 0 ml @ 0 mls/hr UD IV 03/07/25 00:00 Albuterol 2.5 mg Q6HPRN PRN NEB 03/07/25 04:15 Levetiracetam 100 ml @ 400 mls/hr BID IV 03/07/25 10:00 03/09/25 10:15 400 MLS/HR Pantoprazole Sodium 40 mg DAILY IV 03/08/25 10:00 03/09/25 10:13 40 MG Enoxaparin Sodium 40 mg DAILY SC 03/08/25 10:00 03/09/25 10:14 40 MG Meropenem 50 ml @ 17 mls/hr Q8HR IV 03/07/25 22:00 03/09/25 13:39 17 MLS/HR Norepinephrine Bitartrate 250 ml @ 3.75 mls/hr Q24H IV 03/08/25 13:00 03/08/25 13:00 5.625 MLS/HR Finasteride 5 mg DAILY GT 03/09/25 10:00 03/09/25 10:14 5 MG Tamsulosin HCl 0.4 mg QPM PO 03/09/25 18:00 Vancomycin HCl 200 ml @ 200 mls/hr Q12H IV 03/09/25 13:00 03/09/25 12:38 200 MLS/HR Purified Water 200 ml Q6HR GT 03/09/25 18:00 UNV Enteral Nutritional Formula 1,000 ml 40ML/HR GT 03/09/25 15:15 UNV Examination Gen: 65-year-old male in intubated, with severe contractures Skin: Warm, dry, normal color and texture, no rash. HEENT: Normocephalic atraumatic, mucous membranes moist and pink. Neck: Cervical and supraclavicular nodes normal without enlargement, trachea is midline, thyroid gland is normal without masses. Pulmonary: Diminished breath sounds bilaterally Cardiac: Regular rate and rhythm. No murmur Abdomen: Soft, nontender, nondistended, bowel sounds present all 4 quadrants, no guarding, no rigidity, no organomegaly. : purulent discharge between the testes, the ureteral meatus in the penil shaft due to multiple galeas catheters Extremities: No cyanosis, clubbing, no edema Neuro: Cranial nerves II through XII grossly intact, normal affect and speech, no focal motor deficits. laboratory and microbiology Laboratory Tests 03/09/25 04:35 Test 03/09/25 04:35 Range/Units Serum Glucose 83 74-106 mg/dL Microbiology Date/Time Source Procedure Growth Status 03/07/25 12:10 Penis Gram Stain - Final Complete 03/07/25 12:10 Wound Culture - Final Escherichia coli Complete 03/06/25 19:55 Blood Blood Culture - Preliminary NO GROWTH AFTER 48 HOURS OF INCUBATION. Resulted 03/06/25 17:55 Sputum Gram Stain - Final Complete 03/06/25 17:55 Respiratory Culture - Final Escherichia coli Klebsiella oxytoca Complete Problem List/Assessment/Plan Problem List/Assessment/Plan Neurology: #Acute metabolic encephalopathy due to septic shock, dementia #previous history of stroke #Breakthrough seizures, possible secondary to septic shock #Previous history of seizures Head Ct scan: 1. No acute intracranial abnormality. 2. Chronic sequelae of microvascular disease and atrophic cortical volume loss. 3. Endotracheal tube and enteric catheter. fentanyl and midazolam drip RASS -3 Keppra IV Bid Cardiology: #septic shock secondary to complicated UTI/ pneumonia #Possible heart failure with systolic dysfunction, chronic levophed 0.5 mcg ECHO: very limited study lvef >45%, cannot be more accurate RV mild dysfunction atria not well seen valves not well assessed normal IVC trivial pericardial effusion noted BNP normal Respiratory #Acute hypercapnic respiratory failure #COPD exacerbation #Possible gram positive/gram negative pneumonia TV 450 RR 24 PEEP 5 Fio2 35 AB/21: metabolic acidosis with appropriate respiratory compensation 03/08: ABG is showing mild metabolic acidosis Meropenem + vancomycin #GI #Constipation start tube feedings last bowel movement per daughter 03/04/25 #Renal #Septic shock due to complicated UTI #Atrophic left kidney with mild left hydroureteronephrosis. #Mild inflammatory changes associated with the left kidney and left collecting system possibly representing pyelonephritis. #Prostatomegaly with secondary findings to suggest chronic bladder outlet obstruction. #YARA due to VMN and chronic bladder outlet obstruction, resolving patient has erosion in his glande due to chronic foleys, patient also pulled out previous suprapubic catheter urology was consulted: they recommend conservative management patient urinates spontaneously, bladder scan 330cc and then 90 cc order for suprapubic catheter placement: but family refuses we will continue meropenem+ vancomycin stop IV fluids:NS 75 cc/h creatinine is trending down continue finasteride and tamsulosin #Metabolic: #Euthyroid sickness syndrome low TSH, normal T3 and T4 normal A1C #Lactic acidosis at admission #Hypernatremia free water #Heme/onc #Leukocytosis with bandemia resolving #Anemia normocytic hypochromic, on the set of sepsis monitor Case discussed with Dr Chapin Time spent on care 67 min excluding procedures Case extensively discussed with daughter Danica Full code during this hospitalization, patient will come back to hospice after discharge Lines: right subclavian CVC 03/06/25 ETT 03/06/25 No galeas DVT prophylaxis: enoxaparin 40 mg sc PUD prophylaxis: protonix IV Plan discussed with: Daughter My Orders My Orders Orders - JESENIA QUIROS RESIDENT Procedure Category Date Status Time Cover Wound With Foam MARVIN 03/08/25 In Process Dressing 16:23 Apply Z-Guard MARVIN 03/08/25 In Process 16:23 * Dietary Consult CONS 03/08/25 Transmitted 17:47 Chest Xray 1 View XY 03/09/25 Resulted 04:00 Abg W/ Co-Ox RT 03/09/25 Logged 04:00 Electrocardigram EKG 03/09/25 Logged 00:00 Finasteride Tablet PHA 03/09/25 In Process (Proscar Tablet) 10:00 Tamsulosin PHA 03/09/25 In Process Hydrochloride (Flomax) 18:00 Free Water PHA 03/09/25 Logged 18:00 Nutritional PHA 03/09/25 Logged Supplements (Jevity 15:15 Dietary Evaluation Review Comments: 1) TF Jevity 1.2Cal @ 50ml/hr x 24hr along with Pro-stat 1 pk daily (goal). Start @ 20ml/hr, increase 10ml/hr Q4H until goal is reached. TF @ goal volume provides 1540 kcal (100% energy needs), 81 gm protein (100% protein needs), 968 ml free water. 2) Water flush 150ml Q6H if allowed, adjust PRN 3) TPN if NPO > 7 days 4) Monitor NPO status, lab values, wt trend, I/O Expected Outcomes/Goals: Intake to meet at least 75% estimated needs Lab values to improve FU 2-3 days Date of Service: Mar 09, 2025 Billing Provider: ADDISON CHAPIN MD Common Visit Codes: [id number] CARE 30-74 MIN JESENIA QUIROS RESIDENT Mar 09, 2025 15:10 ADDISON CHAPIN MD Mar 10, 2025 12:33
[2025-03-09] MEDS: TAMSULOSIN HYDROCHLORIDE 0.4 MG CAP PO SCH (17:36)
[2025-03-09] MEDS: FREE WATER GT SCH (17:37)
[2025-03-10] VITALS (108 sets, daily range): BP systolic 85–127; BP diastolic 53–96; PULSE 45–110; RESP 10–34; TEMP 95.5–99.1; O2SAT 87–100
[2025-03-10 05:34] LABS: Hematocrit 32.2 % (41.0-53.0); Hemoglobin 10.4 g/dL (13.5-17.5); Mean Corpuscular Hemoglobin 27.5 pg (28.0-32.0); Mean Corpuscular Volume 84.8 fL (80.0-100.0); Nucleated Red Blood Cells % 0.0 %
[2025-03-10 05:50] LABS: Alanine Aminotransferase 17 U/L (7-40); Albumin 3.3 g/dL (3.2-4.8); Alkaline Phosphatase 75 U/L (46-116); Anion Gap 9 (5-15); BUN/Creatinine Ratio 25.7 (10.0-20.0); Bilirubin, Total 0.6 mg/dL (0.2-1.0); Blood Urea Nitrogen 19 mg/dL (9-23); Carbon Dioxide 24 mmol/L (20-31); Glucose 84 mg/dL (74-106); Potassium 3.8 mmol/L (3.5-5.1); Total Protein 6.0 g/dL (5.7-8.2)
[2025-03-10 05:56] LABS: Calcium 8.5 mg/dL (8.7-10.4); Chloride 115 mmol/L (98-107); Sodium 148 mmol/L (136-145)
--- NOTE | 2025-03-10 06:26 | DVH ---
CHEST RADIOGRAPH Indication: intubated Technique: Single frontal view of the chest was obtained COMPARISON: XY CHEST XRAY 1 VIEW on DOS: 03/09/25, XY CHEST XRAY 1 VIEW on DOS: 03/08/25, XY CHEST PORT ABLE on DOS: 03/07/25, XY CHEST PORTABLE on DOS: 03/06/25, CXRP on DOS: 08/04/22 FINDINGS: Lines and Tubes: Unchanged. Lungs: Stable appearing bibasilar pulmonary airspace disease and atelectasis. Small right pleural ef fusion. No pneumothorax. Cardiomediastinal contours: Unremarkable Bones: Unremarkable IMPRESSION: 1. Stable bibasilar pulmonary airspace disease and right pleural effusion. 2. Lines and tubes unchanged.
[2025-03-10 06:35] LABS: Base Excess -4.5 mmol/L (-2.0-3.0)
[2025-03-10] MEDS ORDERED: PROPOFOL 10 MG/ML 20 ML IV ONE (11:46)
[2025-03-10] MEDS ORDERED: ONDANSETRON HCL 4 MG/2 ML VIAL ONE (11:48)
[2025-03-10] MEDS: FUROSEMIDE 20 MG/2 ML VIAL IV ONE (13:02)
--- NOTE | 2025-03-10 18:14 | DVHPNRES ---
Progress Note Date Seen: Mar 10, 2025 Resident Creating Document: JESENIA QUIROS RESIDENT Has the PT tested + for MRSA If YES, has PT been informed?: No Medical Necessity Reason Pt with a Central, PICC or Fol: Yes Subjective Review of Systems 65-year-old male with history of dementia, COPD, seizures, hypothyroidism, BPH, and Parkinson's disease? presented via EMS after a witnessed generalized tonic- clonic seizure. Per EMS, patient was tachycardic to 150 bpm and hypoxic with SpO2 of 93% on room air. Family confirmed two prior seizures today and reported Keppra use. Patient was intubated on arrival for airway protection due to postictal mental status. He remains sedated and mechanically ventilated. Head ct scan: 1. No acute intracranial abnormality. 2. Chronic sequelae of microvascular disease and atrophic cortical volume loss. 3. Endotracheal tube and enteric catheter. PAST MEDICAL HISTORY: COPD, Dementia, Seizures, Hypothyroidism BPH and parkinson's Surgical History: multiple galeas catheters and suprapubic that patient removed Family History Family History: Unknown Social History Smoker: Non-Smoker Alcohol: Denies ETOH Use Drugs: Denies Drug Use Lives In: Home 03/08/25: CT scan showed Atrophic left kidney with mild left hydroureteronephrosis, Mild inflammatory changes associated with the left kidney and left collecting system possibly representing pyelonephritis and Prostatomegaly with secondary findings to suggest chronic bladder outlet obstruction, IR was consulted for suprapubic catheter but family refused due to previous suprapubic that patient removed, patient is voiding, pressors are titrating down, continue meropenem and vancomycin 03/09/25: bradycardia, lowest 48, sedation vacation was started but patient started to be agitated, was put on again on sedation, wbc is trending down, patient continues to have spontaneous diuresis 03/10/25: patient was off sedation, but was breathing over the vent, high peak pressures, was decided to put again on sedation, Levophed titrating down, speaking with the daughter adina, patient doesnt follow commands at home, so extubation will be challenge, cpap trial am tomorrow Objective vital signs Vital Sign Date Time Temp Pulse Resp B/P (MAP) Pulse Ox O2 Delivery O2 Flow Rate FiO2 03/10/25 17:45 98.8 79 24 93/66 (75) 94 209.8 03/10/25 16:05 30 03/10/25 16:00 Mechanical Ventilator+ Total Intake and Output 03/09/25 03/09/25 03/10/25 15:00 23:00 07:00 Intake Total 767.379 ml 682.504 ml 922.504 ml Balance 767.379 ml 682.504 ml 922.504 ml medications Current Medications Medications Dose Ordered Sig/Andra Route Start Time Stop Time Status Last Admin Dose Admin Fentanyl Citrate 250 ml @ 2.5 mls/hr Q24H IV 03/06/25 21:00 03/10/25 00:16 12.5 MLS/HR Midazolam HCl 50 ml @ 1 mls/hr Q24H IV 03/06/25 21:15 03/10/25 13:07 1 MLS/HR Vancomycin HCl 0 ml @ 0 mls/hr UD IV 03/07/25 00:00 Albuterol 2.5 mg Q6HPRN PRN NEB 03/07/25 04:15 Levetiracetam 100 ml @ 400 mls/hr BID IV 03/07/25 10:00 03/10/25 09:53 400 MLS/HR Pantoprazole Sodium 40 mg DAILY IV 03/08/25 10:00 03/10/25 09:52 40 MG Enoxaparin Sodium 40 mg DAILY SC 03/08/25 10:00 03/10/25 09:52 40 MG Meropenem 50 ml @ 17 mls/hr Q8HR IV 03/07/25 22:00 03/10/25 14:05 17 MLS/HR Norepinephrine Bitartrate 250 ml @ 3.75 mls/hr Q24H IV 03/08/25 13:00 03/08/25 13:00 5.625 MLS/HR Finasteride 5 mg DAILY GT 03/09/25 10:00 03/10/25 09:52 5 MG Tamsulosin HCl 0.4 mg QPM PO 03/09/25 18:00 03/10/25 17:45 0.4 MG Vancomycin HCl 200 ml @ 200 mls/hr Q12H IV 03/09/25 13:00 03/10/25 13:00 200 MLS/HR Purified Water 200 ml Q6HR GT 03/09/25 18:00 03/10/25 17:45 200 ML Enteral Nutritional Formula 1,000 ml 40ML/HR GT 03/09/25 15:15 Examination Gen: 65-year-old male in intubated, with severe contractures Skin: Warm, dry, normal color and texture, no rash. HEENT: Normocephalic atraumatic, mucous membranes moist and pink. Neck: Cervical and supraclavicular nodes normal without enlargement, trachea is midline, thyroid gland is normal without masses. Pulmonary: Diminished breath sounds bilaterally Cardiac: Regular rate and rhythm. No murmur Abdomen: Soft, nontender, nondistended, bowel sounds present all 4 quadrants, no guarding, no rigidity, no organomegaly. : purulent discharge between the testes, the ureteral meatus in the penil shaft due to multiple galeas catheters Extremities: No cyanosis, clubbing, no edema Neuro: Cranial nerves II through XII grossly intact, normal affect and speech, no focal motor deficits. laboratory and microbiology Laboratory Tests 03/10/25 05:03 Test 03/10/25 05:03 Range/Units Serum Glucose 84 74-106 mg/dL Microbiology Date/Time Source Procedure Growth Status 03/07/25 12:10 Penis Gram Stain - Final Complete 03/07/25 12:10 Wound Culture - Final Escherichia coli Complete 03/06/25 19:55 Blood Blood Culture - Preliminary NO GROWTH AFTER 72 HOURS OF INCUBATION. Resulted 03/06/25 17:55 Sputum Gram Stain - Final Complete 03/06/25 17:55 Respiratory Culture - Final Escherichia coli Klebsiella oxytoca Complete Problem List/Assessment/Plan Problem List/Assessment/Plan Neurology: #Acute metabolic encephalopathy due to septic shock, dementia #previous history of stroke #Breakthrough seizures, possible secondary to septic shock #Previous history of seizures Head Ct scan: 1. No acute intracranial abnormality. 2. Chronic sequelae of microvascular disease and atrophic cortical volume loss. 3. Endotracheal tube and enteric catheter. fentanyl only RASS -3 Keppra IV Bid 03/10/25: patient was off sedation, but was breathing over the vent, high peak pressures, was decided to put again on sedation, Levophed titrating down, speaking with the daughter adina, patient doesnt follow commands at home, so extubation will be challenge, cpap trial am tomorrow Cardiology: #septic shock secondary to complicated UTI/ pneumonia #Possible heart failure with systolic dysfunction, chronic levophed 0.5 mcg ECHO: very limited study lvef >45%, cannot be more accurate RV mild dysfunction atria not well seen valves not well assessed normal IVC trivial pericardial effusion noted BNP normal Respiratory #Acute hypercapnic respiratory failure #COPD exacerbation #Possible gram positive/gram negative pneumonia TV 450 RR 24 PEEP 5 Fio2 35 AB/21: metabolic acidosis with appropriate respiratory compensation 03/08: ABG is showing mild metabolic acidosis Meropenem + vancomycin #GI #Constipation continue tube feedings #Renal #Septic shock due to complicated UTI #Atrophic left kidney with mild left hydroureteronephrosis. #Mild inflammatory changes associated with the left kidney and left collecting system possibly representing pyelonephritis. #Prostatomegaly with secondary findings to suggest chronic bladder outlet obstruction. #YARA due to VMN and chronic bladder outlet obstruction, resolving patient has erosion in his glande due to chronic foleys, patient also pulled out previous suprapubic catheter urology was consulted: they recommend conservative management patient urinates spontaneously, bladder scan 330cc and then 90 cc order for suprapubic catheter placement: but family refuses we will continue meropenem+ vancomycin stop IV fluids:NS 75 cc/h creatinine is trending down continue finasteride and tamsulosin #Metabolic: #Euthyroid sickness syndrome low TSH, normal T3 and T4 normal A1C #Lactic acidosis at admission #Hypernatremia, improving free water #Heme/onc #Leukocytosis with bandemia resolving #Anemia normocytic hypochromic, on the set of sepsis monitor Case discussed with Dr Chapin Time spent on care 67 min excluding procedures Case extensively discussed with domo Mishra Full code during this hospitalization, patient will come back to hospice after discharge Lines: right subclavian CVC 03/06/25 ETT 03/06/25 No galeas DVT prophylaxis: enoxaparin 40 mg sc PUD prophylaxis: protonix IV Plan discussed with: Daughter My Orders My Orders Orders - JESENIA QUIROS RESIDENT Procedure Category Date Status Time Complete Blood Count LAB 03/11/25 Verified 04:00 Comprehensive LAB 03/11/25 Verified Metabolic Panel 04:00 Chest Xray 1 View XY 03/11/25 Logged 04:00 Abg W/ Co-Ox RT 03/11/25 Logged 04:00 Dietary Evaluation Review Comments: 1) TF Jevity 1.2Cal @ 50ml/hr x 24hr along with Pro-stat 1 pk daily (goal). Start @ 20ml/hr, increase 10ml/hr Q4H until goal is reached. TF @ goal volume provides 1540 kcal (100% energy needs), 81 gm protein (100% protein needs), 968 ml free water. 2) Water flush 150ml Q6H if allowed, adjust PRN 3) TPN if NPO > 7 days 4) Monitor NPO status, lab values, wt trend, I/O Expected Outcomes/Goals: Intake to meet at least 75% estimated needs Lab values to improve FU 2-3 days Date of Service: Mar 10, 2025 Billing Provider: ADDISON CHAPIN MD Common Visit Codes: [id number] CARE 30-74 MIN JESENIA QUIROS RESIDENT Mar 10, 2025 18:14 ADDISON CHAPIN MD Mar 12, 2025 12:50
[2025-03-11] VITALS (110 sets, daily range): BP systolic 79–137; BP diastolic 52–98; PULSE 46–97; RESP 15–27; TEMP 97.5–99.3; O2SAT 90–100
[2025-03-11 05:46] LABS: Hematocrit 29.3 % (41.0-53.0); Hemoglobin 9.7 g/dL (13.5-17.5); Mean Corpuscular Hemoglobin 27.9 pg (28.0-32.0); Mean Corpuscular Volume 84.5 fL (80.0-100.0); Nucleated Red Blood Cells % 0.1 %
[2025-03-11 05:54] LABS: Alanine Aminotransferase 19 U/L (7-40); Alkaline Phosphatase 80 U/L (46-116); Anion Gap 8 (5-15); BUN/Creatinine Ratio 22.4 (10.0-20.0); Blood Urea Nitrogen 19 mg/dL (9-23); Calcium 8.9 mg/dL (8.7-10.4); Carbon Dioxide 26 mmol/L (20-31); Magnesium 1.9 mg/dL (1.6-2.6); Total Protein 5.8 g/dL (5.7-8.2)
[2025-03-11 05:56] LABS: Bilirubin, Total 0.4 mg/dL (0.2-1.0)
[2025-03-11 06:00] LABS: Base Excess -2.6 mmol/L (-2.0-3.0)
--- NOTE | 2025-03-11 06:00 | DVH ---
CHEST RADIOGRAPH Indication: intubated Technique: Single frontal view of the chest was obtained COMPARISON: XY CHEST XRAY 1 VIEW on DOS: 03/10/25, XY CHEST XRAY 1 VIEW on DOS: 03/09/25, XY CHEST XRAY 1 VIEW on DOS: 03/08/25, XY CHEST PORTABLE on DOS: 03/07/25, XY CHEST PORTABLE on DOS: 03/06/25 FINDINGS: Lines and Tubes: Interval retraction of the endotracheal tube such that the tip now projects approxim ately 6.3 cm above the level of the silas. Remaining lines and tubes unchanged. Lungs: Small right pleural effusion and bibasilar pulmonary airspace disease. No pneumothorax. Cardiomediastinal contours: Unremarkable Bones: Unremarkable IMPRESSION: 1. Stable appearing bibasilar pulmonary airspace disease and small right pleural effusion. 2. Interval retraction of endotracheal tube as above. Remaining lines and tubes unchanged.
[2025-03-11 06:02] LABS: Albumin 3.2 g/dL (3.2-4.8); Chloride 112 mmol/L (98-107); Glucose 118 mg/dL (74-106); Potassium 3.2 mmol/L (3.5-5.1); Sodium 146 mmol/L (136-145)
[2025-03-11] MEDS: POTASSIUM CHL 20MEQ/100ML 100 ML IV SCH (09:05)
[2025-03-11] MEDS: DEXMEDETOMIDINE HCL IN D5W 100 ML IV SCH (11:12)
--- NOTE | 2025-03-11 11:44 | DVH ---
XY CHEST PORTABLE, HISTORY: TUBE ADVANCEMENT COMPARISON: XY CHEST XRAY 1 VIEW on DOS: 03/11/25, XY CHEST XRAY 1 VIEW on DOS: 03/10/25, XY CHEST XRAY 1 VIEW on DOS: 03/09/25 XY CHEST XRAY 1 VIEW on DOS: 03/11/25, XY CHEST XRAY 1 VIEW on DOS: 03/10/25, XY CHEST XRAY 1 VIEW on D OS: 03/09/25 TECHNICAL DATA: 1 view of the chest was obtained. FINDINGS: Lines and tubes: ET in the mid thoracic trachea. Left CVC with tip in the RA. NG in the stomach. Cardiomediastinal silhouette: normal Pulmonary vasculature: normal Lung expansion: normal Lung airspace: Bibasialr consolidation. Lung interstitium: normal Pleura: normal Pneumothorax: no Bones: Unremarkable Other: no IMPRESSION: ET in the mid thoracic trachea. Left CVC with tip in the RA. NG in the stomach.
--- NOTE | 2025-03-11 12:53 | DVHPNRES ---
Progress Note Date Seen: Mar 11, 2025 Resident Creating Document: JESENIA QUIROS RESIDENT Has the PT tested + for MRSA If YES, has PT been informed?: No Medical Necessity Reason Pt with a Central, PICC or Fol: Yes Subjective Review of Systems 65-year-old male with history of dementia, COPD, seizures, hypothyroidism, BPH, and Parkinson's disease? presented via EMS after a witnessed generalized tonic- clonic seizure. Per EMS, patient was tachycardic to 150 bpm and hypoxic with SpO2 of 93% on room air. Family confirmed two prior seizures today and reported Keppra use. Patient was intubated on arrival for airway protection due to postictal mental status. He remains sedated and mechanically ventilated. Head ct scan: 1. No acute intracranial abnormality. 2. Chronic sequelae of microvascular disease and atrophic cortical volume loss. 3. Endotracheal tube and enteric catheter. PAST MEDICAL HISTORY: COPD, Dementia, Seizures, Hypothyroidism BPH and parkinson's Surgical History: multiple galeas catheters and suprapubic that patient removed Family History Family History: Unknown Social History Smoker: Non-Smoker Alcohol: Denies ETOH Use Drugs: Denies Drug Use Lives In: Home 03/08/25: CT scan showed Atrophic left kidney with mild left hydroureteronephrosis, Mild inflammatory changes associated with the left kidney and left collecting system possibly representing pyelonephritis and Prostatomegaly with secondary findings to suggest chronic bladder outlet obstruction, IR was consulted for suprapubic catheter but family refused due to previous suprapubic that patient removed, patient is voiding, pressors are titrating down, continue meropenem and vancomycin 03/09/25: bradycardia, lowest 48, sedation vacation was started but patient started to be agitated, was put on again on sedation, wbc is trending down, patient continues to have spontaneous diuresis 03/10/25: patient was off sedation, but was breathing over the vent, high peak pressures, was decided to put again on sedation, Levophed titrating down, speaking with the daughter danica, patient doesnt follow commands at home, so extubation will be a challenge, cpap trial am tomorrow 03/11/25: Weaned patient off sedation, started on precedex. Patient very drowsy most of the day, too drowsy to start on CPAP trial. When stimulated patient will cough/ gag causing peak pressuring in the ventilator. bitting the tube? re- sedate the patient. Discussion with Danica, daughter at bedside, was explained that extubate the patient will be difficult due to baseline mental status, daughter stated that in case of extubation no reintubation and no tracheostomy, daughter wants to be present if extubation can be medically done, she stated this is the 2nd intubation and previously they have the same challenge Objective vital signs Vital Sign Date Time Temp Pulse Resp B/P (MAP) Pulse Ox O2 Delivery O2 Flow Rate FiO2 03/11/25 12:21 85 24 91/64 (73) 90 30 03/11/25 12:15 99.3 210.7 03/11/25 12:00 Mechanical Ventilator+ Total Intake and Output 03/10/25 03/10/25 03/11/25 15:00 23:00 07:00 Intake Total 399.876 ml 1419.50 ml 707.501 ml Balance 399.876 ml 1419.50 ml 707.501 ml medications Current Medications Medications Dose Ordered Sig/Andra Route Start Time Stop Time Status Last Admin Dose Admin Fentanyl Citrate 250 ml @ 2.5 mls/hr Q24H IV 03/06/25 21:00 03/10/25 00:16 12.5 MLS/HR Midazolam HCl 50 ml @ 1 mls/hr Q24H IV 03/06/25 21:15 03/11/25 02:54 6 MLS/HR Vancomycin HCl 0 ml @ 0 mls/hr UD IV 03/07/25 00:00 Albuterol 2.5 mg Q6HPRN PRN NEB 03/07/25 04:15 Levetiracetam 100 ml @ 400 mls/hr BID IV 03/07/25 10:00 03/11/25 09:11 400 MLS/HR Pantoprazole Sodium 40 mg DAILY IV 03/08/25 10:00 03/11/25 09:05 40 MG Enoxaparin Sodium 40 mg DAILY SC 03/08/25 10:00 03/11/25 09:05 40 MG Meropenem 50 ml @ 17 mls/hr Q8HR IV 03/07/25 22:00 03/11/25 06:17 17 MLS/HR Norepinephrine Bitartrate 250 ml @ 3.75 mls/hr Q24H IV 03/08/25 13:00 03/08/25 13:00 5.625 MLS/HR Finasteride 5 mg DAILY GT 03/09/25 10:00 03/11/25 09:05 5 MG Tamsulosin HCl 0.4 mg QPM PO 03/09/25 18:00 03/10/25 17:45 0.4 MG Purified Water 200 ml Q6HR GT 03/09/25 18:00 03/11/25 06:18 200 ML Enteral Nutritional Formula 1,000 ml 40ML/HR GT 03/09/25 15:15 Vancomycin HCl 100 ml @ 100 mls/hr Q12H IV 03/11/25 13:00 Examination Gen: 65-year-old male in intubated, with severe contractures Skin: Warm, dry, normal color and texture, no rash. HEENT: Normocephalic atraumatic, mucous membranes moist and pink. Neck: Cervical and supraclavicular nodes normal without enlargement, trachea is midline, thyroid gland is normal without masses. Pulmonary: Diminished breath sounds bilaterally Cardiac: Regular rate and rhythm. No murmur Abdomen: Soft, nontender, nondistended, bowel sounds present all 4 quadrants, no guarding, no rigidity, no organomegaly. : purulent discharge between the testes, the ureteral meatus in the penil shaft due to multiple galeas catheters Extremities: No cyanosis, clubbing, no edema Neuro: Cranial nerves II through XII grossly intact, normal affect and speech, no focal motor deficits. laboratory and microbiology Laboratory Tests 03/11/25 05:05 Test 03/11/25 05:05 Range/Units Serum Glucose 118 H 74-106 mg/dL Microbiology Date/Time Source Procedure Growth Status 03/07/25 12:10 Penis Gram Stain - Final Complete 03/07/25 12:10 Wound Culture - Final Escherichia coli Complete 03/06/25 19:55 Blood Blood Culture - Preliminary NO GROWTH AFTER 72 HOURS OF INCUBATION. Resulted 03/06/25 17:55 Sputum Gram Stain - Final Complete 03/06/25 17:55 Respiratory Culture - Final Escherichia coli Klebsiella oxytoca Complete Problem List/Assessment/Plan Problem List/Assessment/Plan Neurology: #Acute metabolic encephalopathy due to septic shock, dementia #previous history of stroke #Breakthrough seizures, possible secondary to septic shock #Previous history of seizures Head Ct scan: 1. No acute intracranial abnormality. 2. Chronic sequelae of microvascular disease and atrophic cortical volume loss. 3. Endotracheal tube and enteric catheter. fentanyl and versed, Precedex was used for weaning trial RASS -3 Keppra IV Bid 03/10/25: patient was off sedation, but was breathing over the vent, high peak pressures, was decided to put again on sedation, Levophed titrating down, speaking with the daughter danica, patient doesnt follow commands at home, so extubation will be challenge, cpap trial am tomorrow 03/11/25: Weaned patient off sedation, started on precedex. Patient very drowsy most of the day, too drowsy to start on CPAP trial. When stimulated patient will cough/ gag causing peak pressuring in the ventilator. bitting the tube? re- sedate the patient. Discussion with Danica, daughter at bedside, was explained that extubate the patient will be difficult due to baseline mental status, daughter stated that in case of extubation no reintubation and no tracheostomy, daughter wants to be present if extubation can be medically done, she stated this is the 2nd intubation and previously they have the same challenge Cardiology: #septic shock secondary to complicated UTI/ pneumonia #Possible heart failure with systolic dysfunction, chronic levophed on and off ECHO: very limited study lvef >45%, cannot be more accurate RV mild dysfunction atria not well seen valves not well assessed normal IVC trivial pericardial effusion noted BNP normal Respiratory #Acute hypercapnic respiratory failure #COPD exacerbation #Possible gram positive/gram negative pneumonia TV 450 RR 24 PEEP 5 Fio2 35 AB/21: metabolic acidosis with appropriate respiratory compensation 03/08: ABG is showing mild metabolic acidosis Meropenem + vancomycin #GI #Constipation continue tube feedings lactulose #Renal #Septic shock due to complicated UTI #Atrophic left kidney with mild left hydroureteronephrosis. #Mild inflammatory changes associated with the left kidney and left collecting system possibly representing pyelonephritis. #Prostatomegaly with secondary findings to suggest chronic bladder outlet obstruction. #YARA due to VMN and chronic bladder outlet obstruction, resolving patient has erosion in his glande due to chronic foleys, patient also pulled out previous suprapubic catheter urology was consulted: they recommend conservative management patient urinates spontaneously, bladder scan 330cc and then 90 cc order for suprapubic catheter placement: but family refuses we will continue meropenem+ vancomycin stop IV fluids:NS 75 cc/h creatinine is trending down continue finasteride and tamsulosin #Metabolic: #Euthyroid sickness syndrome low TSH, normal T3 and T4 normal A1C #Lactic acidosis at admission #Hypernatremia, improving free water #Heme/onc #Leukocytosis with bandemia resolving #Anemia normocytic hypochromic, on the set of sepsis monitor Case discussed with Dr Khanna Time spent on care 87 min excluding procedures Case extensively discussed with domo Mishra Full code during this hospitalization, patient will come back to hospice after discharge Lines: right subclavian CVC 03/06/25 ETT 03/06/25 No galeas DVT prophylaxis: enoxaparin 40 mg sc PUD prophylaxis: protonix IV Plan discussed with: Daughter My Orders My Orders Orders - JESENIA QUIROS RESIDENT Procedure Category Date Status Time Chest Xray 1 View XY 03/11/25 Resulted 04:00 Abg W/ Co-Ox RT 03/11/25 Logged 04:00 Respiratory Misc. RT 03/11/25 Transmitted Order 09:51 Chest Portable XY 03/11/25 Resulted 10:54 Dexmedetomidine Hcl PHA 03/11/25 In Process In D5w (Precedex) 11:00 Dietary Evaluation Review Comments: 1) TF Jevity 1.2Cal @ 50ml/hr x 24hr along with Pro-stat 1 pk daily (goal). Start @ 20ml/hr, increase 10ml/hr Q4H until goal is reached. TF @ goal volume provides 1540 kcal (100% energy needs), 81 gm protein (100% protein needs), 968 ml free water. 2) Water flush 150ml Q6H if allowed, adjust PRN 3) TPN if NPO > 7 days 4) Monitor NPO status, lab values, wt trend, I/O Expected Outcomes/Goals: Intake to meet at least 75% estimated needs Lab values to improve FU 2-3 days JESENIA QUIROS RESIDENT Mar 11, 2025 12:53
[2025-03-11] MEDS: VANCOMYCIN 750MG KIT 100 ML IV SCH (13:00)
[2025-03-11] MEDS: Jevity 1.2 Cal/Fiber 1 Liter GT SCH (17:55)
[2025-03-11] MEDS: LACTULOSE 20Gm/30ML SOLN PO SCH (22:27)
[2025-03-12] VITALS (92 sets, daily range): BP systolic 74–140; BP diastolic 50–101; PULSE 53–112; RESP 10–37; TEMP 97.2–99.9; O2SAT 78–100
[2025-03-12 05:39] LABS: Hematocrit 27.6 % (41.0-53.0); Hemoglobin 9.3 g/dL (13.5-17.5); Mean Corpuscular Hemoglobin 28.3 pg (28.0-32.0); Mean Corpuscular Volume 83.8 fL (80.0-100.0); Nucleated Red Blood Cells % 0.2 %
[2025-03-12 05:50] LABS: Alanine Aminotransferase 27 U/L (7-40); Alkaline Phosphatase 89 U/L (46-116); Anion Gap 7 (5-15); BUN/Creatinine Ratio 22.1 (10.0-20.0); Bilirubin, Total 0.4 mg/dL (0.2-1.0); Blood Urea Nitrogen 15 mg/dL (9-23); Calcium 9.0 mg/dL (8.7-10.4); Carbon Dioxide 27 mmol/L (20-31); Glucose 96 mg/dL (74-106)
--- NOTE | 2025-03-12 05:53 | DVH ---
CHEST RADIOGRAPH Indication: intubated Technique: Single frontal view of the chest was obtained COMPARISON: XY CHEST PORTABLE on DOS: 03/11/25, XY CHEST XRAY 1 VIEW on DOS: 03/11/25, XY CHEST XRAY 1 VIEW on DOS: 03/10/25, XY CHEST XRAY 1 VIEW on DOS: 03/09/25, XY CHEST XRAY 1 VIEW on DOS: 03/08/25 FINDINGS: Lines and Tubes: Interval advancement of endotracheal tube such that the tip now projects approximate ly 1.7 cm above the level of the silas. Remaining lines and tubes unchanged. Lungs: Small right pleural effusion. Stable appearing bibasilar pulmonary airspace disease and mild d iffuse increased prominence of the pulmonary vasculature. No pneumothorax. Cardiomediastinal contours: Unremarkable Bones: Unremarkable IMPRESSION: 1. Small right pleural effusion. 2. Stable appearing bibasilar pulmonary airspace disease and mild diffuse increased prominence of the pulmonary vasculature. 3. Interval advancement of endotracheal tube as above with the remaining lines and tubes unchanged.
[2025-03-12 06:02] LABS: Chloride 112 mmol/L (98-107); Potassium 3.2 mmol/L (3.5-5.1); Sodium 146 mmol/L (136-145)
[2025-03-12 06:03] LABS: Albumin 3.1 g/dL (3.2-4.8); Total Protein 5.6 g/dL (5.7-8.2)
[2025-03-12] MEDS: POTASSIUM CHL 20MEQ/100ML 100 ML IV SCH (07:22)
[2025-03-12 07:50] LABS: Base Excess -1.7 mmol/L (-2.0-3.0)
--- NOTE | 2025-03-12 12:50 | DVHPN2 ---
Reviewed: Care Plan, H&P, Labs, Medications, Previous Orders, Radiology Changes from previous H/P or p: No Changes General: Per HPI Objective Vitals Vital Signs Date Time Temp Pulse Resp B/P (MAP) Pulse Ox O2 Delivery O2 Flow Rate FiO2 03/12/25 11:48 77 03/12/25 11:48 20 92 Mechanical Ventilator+ 30 30 03/12/25 11:45 99.7 98/68 (78) 211.5 Intake/Output Intake and Output 03/12/25 07:00 Intake Total 1630.763 ml Output Total 0 ml Balance 1630.763 ml Intake Oral 600 ml IV Total 670.763 ml Tube Feeding 360 ml Output Stool Total 0 ml # Voids 6 General Appearance: Alert, Oriented X3, Cooperative HEENT: Atraumatic Cardiovascular: Regular rate, Normal S1, Normal S2 Neuro: Normal gait, Normal speech Medications Current Medications Medications Dose Ordered Sig/Andra Route Start Time Stop Time Status Last Admin Dose Admin Fentanyl Citrate 250 ml @ 2.5 mls/hr Q24H IV 03/06/25 21:00 03/10/25 00:16 12.5 MLS/HR Midazolam HCl 50 ml @ 1 mls/hr Q24H IV 03/06/25 21:15 03/12/25 03:57 3 MLS/HR Vancomycin HCl 0 ml @ 0 mls/hr UD IV 03/07/25 00:00 Albuterol 2.5 mg Q6HPRN PRN NEB 03/07/25 04:15 Levetiracetam 100 ml @ 400 mls/hr BID IV 03/07/25 10:00 03/12/25 07:21 400 MLS/HR Pantoprazole Sodium 40 mg DAILY IV 03/08/25 10:00 03/12/25 07:21 40 MG Enoxaparin Sodium 40 mg DAILY SC 03/08/25 10:00 03/12/25 07:22 40 MG Meropenem 50 ml @ 17 mls/hr Q8HR IV 03/07/25 22:00 03/12/25 05:58 17 MLS/HR Norepinephrine Bitartrate 250 ml @ 3.75 mls/hr Q24H IV 03/08/25 13:00 03/08/25 13:00 5.625 MLS/HR Finasteride 5 mg DAILY GT 03/09/25 10:00 03/12/25 07:22 5 MG Tamsulosin HCl 0.4 mg QPM PO 03/09/25 18:00 03/11/25 17:54 0.4 MG Purified Water 200 ml Q6HR GT 03/09/25 18:00 03/12/25 05:58 200 ML Enteral Nutritional Formula 1,000 ml 40ML/HR GT 03/09/25 15:15 03/11/25 17:55 1,000 ML Vancomycin HCl 100 ml @ 100 mls/hr Q12H IV 03/11/25 13:00 03/12/25 00:41 100 MLS/HR Lactulose 15 ml BID PO 03/11/25 22:00 03/12/25 07:21 15 ML Laboratory Results Laboratory Tests 03/12/25 04:44 Chemistry Test 03/12/25 04:44 Albumin 3.1 g/dL (3.2-4.8) L Calcium Level 9.0 mg/dL (8.7-10.4) Total Protein 5.6 g/dL (5.7-8.2) L LFT Test 03/12/25 04:44 Alanine Aminotransferase (ALT) 27 U/L (7-40) Alkaline Phosphatase 89 U/L (46-116) Aspartate Amino Transferase (AST) 49 U/L (13-40) H Total Bilirubin 0.4 mg/dL (0.2-1.0) Blood Gas Results Test 03/12/25 07:05 Arterial Blood pH 7.446 (7.350-7.450) FiO2 % 30.0 Microbiology Microbiology Date/Time Source Procedure Growth Status 03/07/25 12:10 Penis Gram Stain - Final Complete 03/07/25 12:10 Wound Culture - Final Escherichia coli Complete 03/06/25 19:55 Blood Blood Culture - Final NO GROWTH AFTER 5 DAYS OF INCUBATION. Complete 03/06/25 17:55 Sputum Gram Stain - Final Complete 03/06/25 17:55 Respiratory Culture - Final Escherichia coli Klebsiella oxytoca Complete Labs and/or images reviewed: Labs reviewed by me, Image(s) reviewed by me Assessment/Plan Assessment/Plan Neurology: #Acute metabolic encephalopathy due to septic shock, dementia #previous history of stroke #Breakthrough seizures, possible secondary to septic shock #Previous history of seizures Head Ct scan: 1. No acute intracranial abnormality. 2. Chronic sequelae of microvascular disease and atrophic cortical volume loss. 3. Endotracheal tube and enteric catheter. fentanyl and versed, Precedex was used for weaning trial RASS -3 Keppra IV Bid 03/10/25: patient was off sedation, but was breathing over the vent, high peak pressures, was decided to put again on sedation, Levophed titrating down, speaking with the daughter danica, patient doesnt follow commands at home, so extubation will be challenge, cpap trial am tomorrow 03/11/25: Weaned patient off sedation, started on precedex. Patient very drowsy most of the day, too drowsy to start on CPAP trial. When stimulated patient will cough/ gag causing peak pressuring in the ventilator. bitting the tube? re- sedate the patient. Discussion with Danica, daughter at bedside, was explained that extubate the patient will be difficult due to baseline mental status, daughter stated that in case of extubation no reintubation and no tracheostomy, daughter wants to be present if extubation can be medically done, she stated this is the 2nd intubation and previously they have the same challenge Cardiology: #septic shock secondary to complicated UTI/ pneumonia #Possible heart failure with systolic dysfunction, chronic levophed on and off ECHO: very limited study lvef >45%, cannot be more accurate RV mild dysfunction atria not well seen valves not well assessed normal IVC trivial pericardial effusion noted BNP normal Respiratory #Acute hypercapnic respiratory failure #COPD exacerbation #Possible gram positive/gram negative pneumonia TV 450 RR 24 PEEP 5 Fio2 35 AB/21: metabolic acidosis with appropriate respiratory compensation 03/08: ABG is showing mild metabolic acidosis Meropenem + vancomycin #GI #Constipation continue tube feedings lactulose #Renal #Septic shock due to complicated UTI #Atrophic left kidney with mild left hydroureteronephrosis. #Mild inflammatory changes associated with the left kidney and left collecting system possibly representing pyelonephritis. #Prostatomegaly with secondary findings to suggest chronic bladder outlet obstruction. #YARA due to VMN and chronic bladder outlet obstruction, resolving patient has erosion in his glande due to chronic foleys, patient also pulled out previous suprapubic catheter urology was consulted: they recommend conservative management patient urinates spontaneously, bladder scan 330cc and then 90 cc order for suprapubic catheter placement: but family refuses we will continue meropenem+ vancomycin stop IV fluids:NS 75 cc/h creatinine is trending down continue finasteride and tamsulosin #Metabolic: #Euthyroid sickness syndrome low TSH, normal T3 and T4 normal A1C #Lactic acidosis at admission #Hypernatremia, improving free water #Heme/onc #Leukocytosis with bandemia resolving #Anemia normocytic hypochromic, on the set of sepsis monitor Case discussed with Dr Khanna Time spent on care 87 min excluding procedures Case extensively discussed with daughter Danica Full code during this hospitalization, patient will come back to hospice after discharge 03/08/25: CT scan showed Atrophic left kidney with mild left hydroureteronephrosis, Mild inflammatory changes associated with the left kidney and left collecting system possibly representing pyelonephritis and Prostatomegaly with secondary findings to suggest chronic bladder outlet obstruction, IR was consulted for suprapubic catheter but family refused due to previous suprapubic that patient removed, patient is voiding, pressors are titrating down, continue meropenem and vancomycin 03/09/25: bradycardia, lowest 48, sedation vacation was started but patient started to be agitated, was put on again on sedation, wbc is trending down, patient continues to have spontaneous diuresis 03/10/25: patient was off sedation, but was breathing over the vent, high peak pressures, was decided to put again on sedation, Levophed titrating down, speaking with the daughter danica, patient doesnt follow commands at home, so extubation will be a challenge, cpap trial am tomorrow 03/11/25: Weaned patient off sedation, started on precedex. Patient very drowsy most of the day, too drowsy to start on CPAP trial. When stimulated patient will cough/ gag causing peak pressuring in the ventilator. bitting the tube? re- sedate the patient. Discussion with Danica, daughter at bedside, was explained that extubate the patient will be difficult due to baseline mental status, daughter stated that in case of extubation no reintubation and no tracheostomy, daughter wants to be present if extubation can be medically done, she stated this is the 2nd intubation and previously they have the same challenge Plan discussed with: Patient Date of Service: Mar 12, 2025 Billing Provider: MAGGI GUNDERSON DO Common Visit Codes: [id number] CARE 30-74 MIN MAGGI GUNDERSON DO Mar 12, 2025 12:50
[2025-03-12] MEDS ORDERED: POTASSIUM CHL 20MEQ/100ML 100 ML IV SCH (13:00)
--- NOTE | 2025-03-12 23:27 | DVHPN2 ---
Progress Note - Dictate Date Seen: Mar 12, 2025 Has the PT tested + for MRSA If YES, has PT been informed?: No Medical Necessity Reason Pt with a Central, PICC or Fol: Yes Subjective [facility] Patient seen and examined at bedside. Sedated, intubated on mechanical ventilator. Overnight events reviewed. vital signs Vital Sign Date Time Temp Pulse Resp B/P (MAP) Pulse Ox O2 Delivery O2 Flow Rate FiO2 03/12/25 21:43 56 20 113/79 (90) 95 30 03/12/25 20:00 Mechanical Ventilator+ 03/12/25 20:00 97.9 208.2 Total Intake and Output 03/11/25 03/11/25 03/12/25 15:00 23:00 07:00 Intake Total 264.263 ml 447.5 ml 919.0 ml Output Total 0 ml Balance 264.263 ml 447.5 ml 919.0 ml medications Current Medications Medications Dose Ordered Sig/Andra Route Start Time Stop Time Status Last Admin Dose Admin Fentanyl Citrate 250 ml @ 2.5 mls/hr Q24H IV 03/06/25 21:00 03/12/25 17:46 10 MLS/HR Midazolam HCl 50 ml @ 1 mls/hr Q24H IV 03/06/25 21:15 03/12/25 23:20 3 MLS/HR Vancomycin HCl 0 ml @ 0 mls/hr UD IV 03/07/25 00:00 Albuterol 2.5 mg Q6HPRN PRN NEB 03/07/25 04:15 Levetiracetam 100 ml @ 400 mls/hr BID IV 03/07/25 10:00 03/12/25 21:45 400 MLS/HR Pantoprazole Sodium 40 mg DAILY IV 03/08/25 10:00 03/12/25 07:21 40 MG Enoxaparin Sodium 40 mg DAILY SC 03/08/25 10:00 03/12/25 07:22 40 MG Meropenem 50 ml @ 17 mls/hr Q8HR IV 03/07/25 22:00 03/12/25 22:01 17 MLS/HR Norepinephrine Bitartrate 250 ml @ 3.75 mls/hr Q24H IV 03/08/25 13:00 03/12/25 14:26 1.875 MLS/HR Finasteride 5 mg DAILY GT 03/09/25 10:00 03/12/25 07:22 5 MG Tamsulosin HCl 0.4 mg QPM PO 03/09/25 18:00 03/12/25 17:46 0.4 MG Purified Water 200 ml Q6HR GT 03/09/25 18:00 03/12/25 17:39 200 ML Enteral Nutritional Formula 1,000 ml 40ML/HR GT 03/09/25 15:15 03/11/25 17:55 1,000 ML Lactulose 15 ml BID PO 03/11/25 22:00 03/12/25 22:01 15 ML Vancomycin HCl 150 ml @ 150 mls/hr Q12H IV 03/13/25 01:00 objective Gen.: Patient lying in bed in medical ICU. Sedated, intubated on mechanical ventilator. Head: Normocephalic, atraumatic. Eyes: PERRLA. Ears: Normal external anatomy. Throat: Endotracheal tube and orogastric tube in place. Neck: Supple, trachea midline. Chest: Transmitted breath sounds bilaterally. Decreased air entry bilaterally. No wheezing. Bibasilar crackles. Cardiovascular: Positive S1, positive S2. Regular rate and rhythm. Abdomen: Positive bowel sounds in all 4 quadrants. Soft, nontender, nondistended. : Abrams in place. Normal external genitalia. Rectal: Deferred. Skin: Warm, dry. Intact. Extremities: 2+ radial pulses bilaterally. No lower extremity edema. Neuro: Sedated. laboratory and microbiology Laboratory Tests 03/12/25 04:44 Test 03/12/25 04:44 Range/Units Serum Glucose 96 74-106 mg/dL Assessment/Plan Impression: Acute hypoxic respiratory failure On mechanical ventilator Septic shock Status epilepticus Parkinson's disease Dementia BPH Pneumonia Plan: s/p intubation on mechanical ventilator. CXR image and report reviewed. Devices in place. ABG reviewed, notable for alkalemia. On AC mode; RR 24 -->20, VT 450, PEEP 5, FiO2 30% (RR was tapered to 20) Titrate FIO2 to keep O2 saturation above 90%. VAP bundle. Daily ABG and CXR while intubated Sedate for ventilator synchrony Continue antibiotics. F/u cultures. On pressors for hemodynamic support Levophed 2 mcg/min Titrate to keep mean arterial pressure greater than 65 mmHg. Tube feeds for nutritional support Monitor renal function Monitor electrolytes. Supplement as necessary. Monitor ins and outs. Maintain euvolemia. GI prophylaxis. DVT prophylaxis. Prognosis: Poor given patient's multiple co-morbidities. Condition: Critical Rest of plan per hospitalist and other consultants. A total of 35 minutes of critical care time was spent reviewing the patient record, examining the patient, making a diagnostic and therapeutic plan, discussing this plan with the medical personnel, following up on diagnostic studies and following the patient for clinical stability excluding any and all procedures. At least 50% of this time was spent in direct, [id number] contact. Thank you Dr. Wei for allowing me to participate in this patient's care. Further recommendations will depend on the patient's clinical course. Please do not hesitate to contact me if you have any questions or concerns. This medical document was created using an electronic medical record system with [employer] system. Although these documentations are being carefully reviewed, there may still be some phonetic and typographical changes. The errors are purely typographical, due to imperfection on the software program, and do not reflect any compromise in the patient's medical care. Dietary Evaluation Review Comments: 1) TF Jevity 1.2Cal @ 50ml/hr x 24hr along with Pro-stat 1 pk daily (goal). Start @ 20ml/hr, increase 10ml/hr Q4H until goal is reached. TF @ goal volume provides 1540 kcal (100% energy needs), 81 gm protein (100% protein needs), 968 ml free water. 2) Water flush 150ml Q6H if allowed, adjust PRN 3) TPN if NPO > 7 days 4) Monitor NPO status, lab values, wt trend, I/O Expected Outcomes/Goals: Intake to meet at least 75% estimated needs Lab values to improve FU 2-3 days Plan discussed with: Other (DANIKA Harrell) Critical Care Time(min): 35 ISAÍAS TORRES MD Mar 12, 2025 23:27
[2025-03-13] VITALS (105 sets, daily range): BP systolic 81–138; BP diastolic 50–94; PULSE 50–108; RESP 7–27; TEMP 97.9–99.3; O2SAT 89–100
[2025-03-13] MEDS: VANCOMYCIN 750mg/150ml 150 ML IV SCH (02:56)
--- NOTE | 2025-03-13 05:41 | DVH ---
CHEST RADIOGRAPH Indication: intubated Technique: Single frontal view of the chest was obtained Comparison: XY CHEST XRAY 1 VIEW on DOS: 03/12/25, XY CHEST PORTABLE on DOS: 03/11/25, XY CHEST XRAY 1 VIEW on DOS: 03/11/25 IMPRESSION: Heart appears stable in size. There are low lung volumes with bibasilar airspace opacities. Mild pu lmonary vascular congestion and interstitial prominence. No pneumothorax. Support lines and tubes ap pear unchanged in satisfactory position.
[2025-03-13 05:56] LABS: Hematocrit 28.8 % (41.0-53.0); Hemoglobin 9.5 g/dL (13.5-17.5); Mean Corpuscular Hemoglobin 27.7 pg (28.0-32.0); Mean Corpuscular Volume 84.1 fL (80.0-100.0); Nucleated Red Blood Cells % 0.1 %
[2025-03-13 06:12] LABS: Calcium 9.1 mg/dL (8.7-10.4); Potassium 3.5 mmol/L (3.5-5.1); Sodium 145 mmol/L (136-145)
[2025-03-13 06:13] LABS: Anion Gap 7 (5-15); Carbon Dioxide 28 mmol/L (20-31)
[2025-03-13 06:14] LABS: Chloride 110 mmol/L (98-107)
[2025-03-13 06:18] LABS: BUN/Creatinine Ratio 18.5 (10.0-20.0); Blood Urea Nitrogen 12 mg/dL (9-23); Glucose 94 mg/dL (74-106)
[2025-03-13 06:19] LABS: Magnesium 1.8 mg/dL (1.6-2.6)
[2025-03-13 08:37] LABS: Base Excess -1.1 mmol/L (-2.0-3.0)
[2025-03-13] MEDS: ALBUTEROL SULF 2.5 MG/0.5ML(0.5%) NEB SOLN NEB PRN (09:33)
--- NOTE | 2025-03-13 10:58 | DVHPN2 ---
Reviewed: Care Plan, H&P, Labs, Medications, Previous Orders, Radiology Changes from previous H/P or p: No Changes General: Per HPI Objective Vitals Vital Signs Date Time Temp Pulse Resp B/P (MAP) Pulse Ox O2 Delivery O2 Flow Rate FiO2 03/13/25 10:30 99.0 105 24 114/74 (87) 91 210.2 03/13/25 10:00 30 03/13/25 10:00 Mechanical Ventilator+ Intake/Output Intake and Output 03/13/25 07:00 Intake Total 2433.000 ml Balance 2433.000 ml Intake Oral 900 ml IV Total 1193.000 ml Tube Feeding 340 ml # Voids 10 General Appearance: Alert, Oriented X3, Cooperative HEENT: Atraumatic Cardiovascular: Regular rate, Normal S1, Normal S2 Neuro: Normal gait, Normal speech Medications Current Medications Medications Dose Ordered Sig/Andra Route Start Time Stop Time Status Last Admin Dose Admin Fentanyl Citrate 250 ml @ 2.5 mls/hr Q24H IV 03/06/25 21:00 03/12/25 17:46 10 MLS/HR Midazolam HCl 50 ml @ 1 mls/hr Q24H IV 03/06/25 21:15 03/12/25 23:20 3 MLS/HR Vancomycin HCl 0 ml @ 0 mls/hr UD IV 03/07/25 00:00 Albuterol 2.5 mg Q6HPRN PRN NEB 03/07/25 04:15 03/13/25 09:33 2.5 MG Levetiracetam 100 ml @ 400 mls/hr BID IV 03/07/25 10:00 03/13/25 08:07 400 MLS/HR Pantoprazole Sodium 40 mg DAILY IV 03/08/25 10:00 03/13/25 08:06 40 MG Enoxaparin Sodium 40 mg DAILY SC 03/08/25 10:00 03/13/25 08:06 40 MG Meropenem 50 ml @ 17 mls/hr Q8HR IV 03/07/25 22:00 03/13/25 05:33 17 MLS/HR Norepinephrine Bitartrate 250 ml @ 3.75 mls/hr Q24H IV 03/08/25 13:00 03/12/25 14:26 1.875 MLS/HR Finasteride 5 mg DAILY GT 03/09/25 10:00 03/13/25 08:07 5 MG Tamsulosin HCl 0.4 mg QPM PO 03/09/25 18:00 03/12/25 17:46 0.4 MG Purified Water 200 ml Q6HR GT 03/09/25 18:00 03/13/25 05:33 200 ML Enteral Nutritional Formula 1,000 ml 40ML/HR GT 03/09/25 15:15 03/11/25 17:55 1,000 ML Lactulose 15 ml BID PO 03/11/25 22:00 03/13/25 08:06 15 ML Vancomycin HCl 150 ml @ 150 mls/hr Q12H IV 03/13/25 01:00 03/13/25 02:56 150 MLS/HR Laboratory Results Laboratory Tests 03/13/25 04:37 Chemistry Test 03/13/25 04:37 Calcium Level 9.1 mg/dL (8.7-10.4) Magnesium Level 1.8 mg/dL (1.6-2.6) Blood Gas Results Test 03/13/25 07:40 Arterial Blood pH 7.419 (7.350-7.450) FiO2 % 30.0 Microbiology Microbiology Date/Time Source Procedure Growth Status 03/07/25 12:10 Penis Gram Stain - Final Complete 03/07/25 12:10 Wound Culture - Final Escherichia coli Complete 03/06/25 19:55 Blood Blood Culture - Final NO GROWTH AFTER 5 DAYS OF INCUBATION. Complete 03/06/25 17:55 Sputum Gram Stain - Final Complete 03/06/25 17:55 Respiratory Culture - Final Escherichia coli Klebsiella oxytoca Complete Labs and/or images reviewed: Labs reviewed by me, Image(s) reviewed by me Assessment/Plan Assessment/Plan Neurology: #Acute metabolic encephalopathy due to septic shock, dementia #previous history of stroke #Breakthrough seizures, possible secondary to septic shock #Previous history of seizures Head Ct scan: 1. No acute intracranial abnormality. 2. Chronic sequelae of microvascular disease and atrophic cortical volume loss. 3. Endotracheal tube and enteric catheter. fentanyl and versed, Precedex was used for weaning trial RASS -3 Keppra IV Bid 03/10/25: patient was off sedation, but was breathing over the vent, high peak pressures, was decided to put again on sedation, Levophed titrating down, speaking with the daughter danica, patient doesnt follow commands at home, so extubation will be challenge, cpap trial am tomorrow 03/11/25: Weaned patient off sedation, started on precedex. Patient very drowsy most of the day, too drowsy to start on CPAP trial. When stimulated patient will cough/ gag causing peak pressuring in the ventilator. bitting the tube? re- sedate the patient. Discussion with Danica, daughter at bedside, was explained that extubate the patient will be difficult due to baseline mental status, daughter stated that in case of extubation no reintubation and no tracheostomy, daughter wants to be present if extubation can be medically done, she stated this is the 2nd intubation and previously they have the same challenge Cardiology: #septic shock secondary to complicated UTI/ pneumonia #Possible heart failure with systolic dysfunction, chronic levophed on and off ECHO: very limited study lvef >45%, cannot be more accurate RV mild dysfunction atria not well seen valves not well assessed normal IVC trivial pericardial effusion noted BNP normal Respiratory #Acute hypercapnic respiratory failure #COPD exacerbation #Possible gram positive/gram negative pneumonia TV 450 RR 24 PEEP 5 Fio2 35 AB/21: metabolic acidosis with appropriate respiratory compensation 03/08: ABG is showing mild metabolic acidosis Meropenem + vancomycin #GI #Constipation continue tube feedings lactulose #Renal #Septic shock due to complicated UTI #Atrophic left kidney with mild left hydroureteronephrosis. #Mild inflammatory changes associated with the left kidney and left collecting system possibly representing pyelonephritis. #Prostatomegaly with secondary findings to suggest chronic bladder outlet obstruction. #YARA due to VMN and chronic bladder outlet obstruction, resolving patient has erosion in his glande due to chronic foleys, patient also pulled out previous suprapubic catheter urology was consulted: they recommend conservative management patient urinates spontaneously, bladder scan 330cc and then 90 cc order for suprapubic catheter placement: but family refuses we will continue meropenem+ vancomycin stop IV fluids:NS 75 cc/h creatinine is trending down continue finasteride and tamsulosin #Metabolic: #Euthyroid sickness syndrome low TSH, normal T3 and T4 normal A1C #Lactic acidosis at admission #Hypernatremia, improving free water #Heme/onc #Leukocytosis with bandemia resolving #Anemia normocytic hypochromic, on the set of sepsis monitor Case discussed with Dr Khanna Time spent on care 87 min excluding procedures Case extensively discussed with daughter Danica Full code during this hospitalization, patient will come back to hospice after discharge 03/08/25: CT scan showed Atrophic left kidney with mild left hydroureteronephrosis, Mild inflammatory changes associated with the left kidney and left collecting system possibly representing pyelonephritis and Prostatomegaly with secondary findings to suggest chronic bladder outlet obstruction, IR was consulted for suprapubic catheter but family refused due to previous suprapubic that patient removed, patient is voiding, pressors are titrating down, continue meropenem and vancomycin 03/09/25: bradycardia, lowest 48, sedation vacation was started but patient started to be agitated, was put on again on sedation, wbc is trending down, patient continues to have spontaneous diuresis 03/10/25: patient was off sedation, but was breathing over the vent, high peak pressures, was decided to put again on sedation, Levophed titrating down, speaking with the daughter danica, patient doesnt follow commands at home, so extubation will be a challenge, cpap trial am tomorrow 03/11/25: Weaned patient off sedation, started on precedex. Patient very drowsy most of the day, too drowsy to start on CPAP trial. When stimulated patient will cough/ gag causing peak pressuring in the ventilator. bitting the tube? re- sedate the patient. Discussion with Danica, daughter at bedside, was explained that extubate the patient will be difficult due to baseline mental status, daughter stated that in case of extubation no reintubation and no tracheostomy, daughter wants to be present if extubation can be medically done, she stated this is the 2nd intubation and previously they have the same challenge Plan discussed with: Patient My Orders Orders - MAGGI GUNDERSON DO Procedure Category Date Status Time Chest Portable XY 03/13/25 Resulted 04:00 Date of Service: Mar 13, 2025 Billing Provider: MAGGI GUNDERSON DO Common Visit Codes: [id number] CARE 30-74 MIN MAGGI GUNDERSON DO Mar 13, 2025 10:58
[2025-03-13 18:27] LABS: INR 1.05 (0.9-1.15); Partial Thromboplastin Time 31.6 SEC (24.5-34.5); Prothrombin Time 11.1 sec (9.3-11.8)
--- NOTE | 2025-03-13 23:20 | DVHPN2 ---
Progress Note - Dictate Date Seen: Mar 13, 2025 Has the PT tested + for MRSA If YES, has PT been informed?: No Medical Necessity Reason Pt with a Central, PICC or Fol: Yes Subjective [facility] Patient seen and examined at bedside. Intubated on mechanical ventilator. Overnight events reviewed. vital signs Vital Sign Date Time Temp Pulse Resp B/P (MAP) Pulse Ox O2 Delivery O2 Flow Rate FiO2 03/13/25 22:10 69 24 99/74 (82) 100 30 03/13/25 22:00 Mechanical Ventilator+ 03/13/25 22:00 97.9 208.2 Total Intake and Output 03/12/25 03/12/25 03/13/25 15:00 23:00 07:00 Intake Total 575.500 ml 653.000 ml 1204.500 ml Balance 575.500 ml 653.000 ml 1204.500 ml medications Current Medications Medications Dose Ordered Sig/Andra Route Start Time Stop Time Status Last Admin Dose Admin Fentanyl Citrate 250 ml @ 2.5 mls/hr Q24H IV 03/06/25 21:00 03/12/25 17:46 10 MLS/HR Midazolam HCl 50 ml @ 1 mls/hr Q24H IV 03/06/25 21:15 03/13/25 21:21 2 MLS/HR Vancomycin HCl 0 ml @ 0 mls/hr UD IV 03/07/25 00:00 Albuterol 2.5 mg Q6HPRN PRN NEB 03/07/25 04:15 03/13/25 09:33 2.5 MG Levetiracetam 100 ml @ 400 mls/hr BID IV 03/07/25 10:00 03/13/25 21:21 400 MLS/HR Pantoprazole Sodium 40 mg DAILY IV 03/08/25 10:00 03/13/25 08:06 40 MG Enoxaparin Sodium 40 mg DAILY SC 03/08/25 10:00 03/13/25 08:06 40 MG Meropenem 50 ml @ 17 mls/hr Q8HR IV 03/07/25 22:00 03/13/25 21:30 17 MLS/HR Norepinephrine Bitartrate 250 ml @ 3.75 mls/hr Q24H IV 03/08/25 13:00 03/12/25 14:26 1.875 MLS/HR Finasteride 5 mg DAILY GT 03/09/25 10:00 03/13/25 08:07 5 MG Tamsulosin HCl 0.4 mg QPM PO 03/09/25 18:00 03/13/25 17:55 0.4 MG Purified Water 200 ml Q6HR GT 03/09/25 18:00 03/13/25 17:55 200 ML Enteral Nutritional Formula 1,000 ml 40ML/HR GT 03/09/25 15:15 03/11/25 17:55 1,000 ML Lactulose 15 ml BID PO 03/11/25 22:00 03/13/25 21:21 15 ML Vancomycin HCl 150 ml @ 150 mls/hr Q14H IV 03/14/25 03:00 objective Gen.: Patient lying in bed in medical ICU. Intubated on mechanical ventilator. Head: Normocephalic, atraumatic. Eyes: PERRLA. Ears: Normal external anatomy. Throat: Endotracheal tube and orogastric tube in place. Neck: Supple, trachea midline. Chest: Transmitted breath sounds bilaterally. Decreased air entry bilaterally. No wheezing. Bibasilar crackles. Cardiovascular: Positive S1, positive S2. Regular rate and rhythm. Abdomen: Positive bowel sounds in all 4 quadrants. Soft, nontender, nondistended. : Abrams in place. Normal external genitalia. Rectal: Deferred. Skin: Warm, dry. Intact. Extremities: 2+ radial pulses bilaterally. No lower extremity edema. Neuro: Off sedation laboratory and microbiology Laboratory Tests 03/13/25 12:00 03/13/25 04:37 Test 03/13/25 04:37 Range/Units Serum Glucose 94 74-106 mg/dL Assessment/Plan Impression: Acute hypoxic respiratory failure On mechanical ventilator Septic shock Status epilepticus Parkinson's disease Dementia BPH Pneumonia Events: Remains on vent support On AC mode; RR 20, VT 450, PEEP 5, FiO2 30% Continue antibiotics Antiepileptic with Keppra. On pressors for hemodynamic support Levophed 1 mcg/min Titrate to keep mean arterial pressure greater than 65 mmHg. Improving pressor requirements. Tube feeds for nutritional support Off sedation Attempt CPAP CPAP with pressure support 8, PEEP of 5. CXR reviewed, low lung volumes with bibasilar airspace opacities. Mild pulmonary vascular congestion and interstitial prominence. No pneumothorax. ABG reviewed, compensated. Labs and imaging reviewed. Rest of plan as noted below. Plan: s/p intubation on mechanical ventilator. On AC mode; RR 20, VT 450, PEEP 5, FiO2 30% Titrate FIO2 to keep O2 saturation above 90%. VAP bundle. Daily ABG and CXR while intubated Off sedation Continue antibiotics. F/u cultures. On pressors for hemodynamic support Titrate to keep mean arterial pressure greater than 65 mmHg. Tube feeds for nutritional support Monitor renal function Monitor electrolytes. Supplement as necessary. Monitor ins and outs. Maintain euvolemia. SBT/SANG. GI prophylaxis. DVT prophylaxis. Prognosis: Poor given patient's multiple co-morbidities. Condition: Critical Rest of plan per hospitalist and other consultants. A total of 35 minutes of critical care time was spent reviewing the patient record, examining the patient, making a diagnostic and therapeutic plan, discussing this plan with the medical personnel, following up on diagnostic studies and following the patient for clinical stability excluding any and all procedures. At least 50% of this time was spent in direct, [id number] contact. Thank you Dr. Wei for allowing me to participate in this patient's care. Further recommendations will depend on the patient's clinical course. Please do not hesitate to contact me if you have any questions or concerns. This medical document was created using an electronic medical record system with [employer]ation system. Although these documentations are being carefully reviewed, there may still be some phonetic and typographical changes. The errors are purely typographical, due to imperfection on the software program, and do not reflect any compromise in the patient's medical care. Dietary Evaluation Review Comments: 1) TF Jevity 1.2Cal @ 50ml/hr x 24hr along with Pro-stat 1 pk daily (goal). Start @ 20ml/hr, increase 10ml/hr Q4H until goal is reached. TF @ goal volume provides 1540 kcal (100% energy needs), 81 gm protein (100% protein needs), 968 ml free water. 2) Water flush 150ml Q6H if allowed, adjust PRN 3) TPN if NPO > 7 days 4) Monitor NPO status, lab values, wt trend, I/O Expected Outcomes/Goals: Intake to meet at least 75% estimated needs Lab values to improve FU 2-3 days Plan discussed with: Other (DANIKA Mart) Critical Care Time(min): 35 ISAÍAS TORRES MD Mar 13, 2025 23:20
[2025-03-14] VITALS (106 sets, daily range): BP systolic 83–128; BP diastolic 54–101; PULSE 58–91; RESP 10–33; TEMP 97.5–99.3; O2SAT 88–99
[2025-03-14] MEDS: VANCOMYCIN 750mg/150ml 150 ML IV SCH (02:56)
[2025-03-14 07:14] LABS: Hemoglobin 9.6 g/dL (13.5-17.5)
[2025-03-14 07:19] LABS: Hematocrit 29.9 % (41.0-53.0); Mean Corpuscular Hemoglobin 27.2 pg (28.0-32.0); Mean Corpuscular Volume 84.8 fL (80.0-100.0); Nucleated Red Blood Cells % 0.1 %
[2025-03-14 07:24] LABS: Base Excess 0.4 mmol/L (-2.0-3.0)
[2025-03-14 07:26] LABS: Anion Gap 8 (5-15); Calcium 9.2 mg/dL (8.7-10.4); Carbon Dioxide 27 mmol/L (20-31); Chloride 107 mmol/L (98-107); Potassium 3.8 mmol/L (3.5-5.1); Sodium 142 mmol/L (136-145)
[2025-03-14 07:32] LABS: BUN/Creatinine Ratio 13.8 (10.0-20.0); Glucose 91 mg/dL (74-106)
[2025-03-14 07:35] LABS: Blood Urea Nitrogen 8 mg/dL (9-23)
[2025-03-14] MEDS: FREE WATER GT SCH (12:29)
[2025-03-14] MEDS: LIDOCAINE 1% (LOCAL ANESTH.) PF 5ml SDV ID ONE (15:00)
--- NOTE | 2025-03-14 19:08 | DVHPNRES ---
Progress Note Date Seen: Mar 14, 2025 Resident Creating Document: DERICK NUNEZTRACILINDSAY RESIDENT Has the PT tested + for MRSA If YES, has PT been informed?: No Medical Necessity Reason Pt with a Central, PICC or Fol: Yes Subjective Review of Systems Patient is a 65-year-old male with a medical history of COPD, seizures, dementia, hypothyroidism, BPH, Parkinson's disease was brought to the ED via EMS after having generalized tonic-clonic seizure. As per the family patient had 2 per seizures that day while on Keppra. The ED patient was intubated for airway protection due to postictal status. Patient was initially seen to have mixed respiratory and metabolic acidosis with elevated lactic acid levels. CT abdomen pelvis was done which showed possible left pyelonephritis with the atrophic left kidney and mild left hydroureteronephrosis, prostatomegaly with secondary findings to suggest chronic bladder outlet obstruction, multifocal airspace disease in the lungs suspicious for multifocal infection. Sputum culture showed growth of Klebsiella and E coli. IR were consulted for suprapubic catheter placement but family refused due to previous suprapubic catheter that the patient pulled out. 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 Patient is incontinent and no Galeas's catheter could be placed, urology were consulted who recommended conservative management given the patient has dementia, severely contracted and has poor prognosis. Past medical history: COPD, seizures, dementia, hypothyroidism, BPH, Parkinson's disease Surgical history: Multiple Galeas catheter and suprapubic catheter Social history: Patient lives at home and does not smoke, drink alcohol, no drugs Review of systems 03/14- patient seen and examined at the bedside. Currently sedated and on mechanical ventilation with RASS of -3. Bilateral clear lung sounds, soft abdomen but the patient did not have a bowel movement in the last 7 days. Minimal gastric residuals, continued on tube feedings and increase the dose of lactulose. Patient was tried CPAP trial yesterday but became apneic following which it was aborted. Minimal vasopressor requirements with the norepinephrine at 1-2 microgram/minute Objective vital signs Vital Sign Date Time Temp Pulse Resp B/P (MAP) Pulse Ox O2 Delivery O2 Flow Rate FiO2 03/14/25 18:15 99.3 69 22 104/71 (82) 94 210.7 03/14/25 18:00 30 03/14/25 18:00 Mechanical Ventilator+ Total Intake and Output 03/13/25 03/13/25 03/14/25 14:59 22:59 06:59 Intake Total 205.688 ml 776.233 ml 1087.50 ml Balance 205.688 ml 776.233 ml 1087.50 ml medications Current Medications Medications Dose Ordered Sig/Andra Route Start Time Stop Time Status Last Admin Dose Admin Fentanyl Citrate 250 ml @ 2.5 mls/hr Q24H IV 03/06/25 21:00 03/14/25 00:23 7.5 MLS/HR Midazolam HCl 50 ml @ 1 mls/hr Q24H IV 03/06/25 21:15 03/14/25 12:28 5 MLS/HR Albuterol 2.5 mg Q6HPRN PRN NEB 03/07/25 04:15 03/14/25 11:55 2.5 MG Levetiracetam 100 ml @ 400 mls/hr BID IV 03/07/25 10:00 03/14/25 10:55 400 MLS/HR Pantoprazole Sodium 40 mg DAILY IV 03/08/25 10:00 03/14/25 10:31 40 MG Enoxaparin Sodium 40 mg DAILY SC 03/08/25 10:00 03/14/25 10:30 40 MG Meropenem 50 ml @ 17 mls/hr Q8HR IV 03/07/25 22:00 03/14/25 15:23 17 MLS/HR Norepinephrine Bitartrate 250 ml @ 3.75 mls/hr Q24H IV 03/08/25 13:00 03/12/25 14:26 1.875 MLS/HR Finasteride 5 mg DAILY GT 03/09/25 10:00 03/14/25 10:31 5 MG Tamsulosin HCl 0.4 mg QPM PO 03/09/25 18:00 03/14/25 18:11 0.4 MG Enteral Nutritional Formula 1,000 ml 40ML/HR GT 03/09/25 15:15 03/11/25 17:55 1,000 ML Purified Water 100 ml Q6HR GT 03/14/25 12:00 03/14/25 18:11 100 ML Lactulose 30 ml BID PO 03/14/25 22:00 Sodium Chloride 10 ml QSHIFT@10,22 IV 03/14/25 22:00 Examination Patient is sedated and the mechanically ventilated with a RASS -3 Gen - no pallor, no icterus, no cyanosis, no clubbing, no LAD, no edema . Skin - Patients skin is warm and dry. HEENT - normocephalic, atraumatic, moist mucous membranes. Neck - full ROM, no LAD, no JVD Pulmonary - B/L equal breath sounds, no crackles, no wheezing, no stridor. cardiovascular - regular S1,S2 heard, no added sounds, no murmurs heard. GI - soft abdomen. Bowel sounds normoactive Skeletal: Severely contracted lower extremities Neurological - sedated with a RASS-3 and on mechanical ventilation laboratory and microbiology Laboratory Tests 03/14/25 07:00 Test 03/14/25 07:00 Range/Units Serum Glucose 91 74-106 mg/dL Microbiology Date/Time Source Procedure Growth Status 03/07/25 12:10 Penis Gram Stain - Final Complete 03/07/25 12:10 Wound Culture - Final Escherichia coli Complete 03/06/25 19:55 Blood Blood Culture - Final NO GROWTH AFTER 5 DAYS OF INCUBATION. Complete 03/06/25 17:55 Sputum Gram Stain - Final Complete 03/06/25 17:55 Respiratory Culture - Final Escherichia coli Klebsiella oxytoca Complete Problem List/Assessment/Plan Problem List/Assessment/Plan Neurology: Acute metabolic encephalopathy likely due to breakthrough seizure Breakthrough seizures, possible secondary to septic shock Previous history of stroke - Head Ct showed No acute intracranial abnormality, Chronic sequelae of microvascular disease and atrophic cortical volume loss. - fentanyl and versed, Precedex was used for weaning trial - RASS -3 - Keppra 500 mg IV Bid Cardiology: septic shock secondary to complicated UTI/ pneumonia Possible heart failure with mildly reduced ejection fraction, chronic - Minimal Levophed - ECHO: very limited study- lvef >45%, cannot be more accurate, RV mild dysfunction - BNP normal Respiratory Acute on chronic hypercapnic respiratory failure COPD, possible exacerbation, improved Pneumonia d/t gram positive/negative bacteria - minimal ventilator settings - ABG reviewed, mixed resp acidosis with metabolic alkalosis - on meropenam - CXR shows pulm vasc congestion, bibasilar opacities improving Nephrology Septic shock due to complicated UTI Atrophic left kidney with mild left hydroureteronephrosis. pyelonephritis. Prostatomegaly chronic bladder outlet obstruction. 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, patient also pulled out previous suprapubic catheter urology was consulted: they recommend conservative management patient urinates spontaneously order for suprapubic catheter placement: but family refuses - culture from penile wound show growth of E.coli - on meropenem - continue finasteride and tamsulosin Metabolic: possible Euthyroid sickness syndrome Lactic acidosis, resolved Hypernatremia, resolved free water at 100ml q6hr Heme/onc Anemia normocytic hypochromic stable H&H DVT prophylaxis: enoxaparin PUD prophylaxis: protonix right PICC placed on 03/14 ETT 03/06 No galeas Goals of care discussed with daughter, Full code during this hospitalization, patient will come back to hospice after discharge Critical care time spent excluding procedures 61 mins. Case discussed with Dr Chapin Plan discussed with: Daughter, Other (DANIKA Bell) My Orders My Orders Orders - OPHELIA NUNEZ RESIDENT Procedure Category Date Status Time * Picc Line Consult CONS 03/14/25 Transmitted 10:47 Free Water PHA 03/14/25 In Process 12:00 Lactulose Oral PHA 03/14/25 In Process 22:00 Change Dressing Prn MARVIN 03/14/25 In Process 14:49 Sodium Chloride Lock PHA 03/14/25 In Process (Saline Lock Ns) 22:00 Do Not Use Picc For [facility] 03/14/25 In Process Blood Cult 14:49 May Draw Blood From [facility] 03/14/25 In Process Picc 14:49 Ok To Use Picc MARVIN 03/14/25 In Process 14:49 Change Picc Dressing MARVIN 03/14/25 In Process Q7 Days 14:49 Dietary Evaluation Review Comments: 1) TF Jevity 1.2Cal @ 50ml/hr x 24hr along with Pro-stat 1 pk daily (goal). Start @ 20ml/hr, increase 10ml/hr Q4H until goal is reached. TF @ goal volume provides 1540 kcal (100% energy needs), 81 gm protein (100% protein needs), 968 ml free water. 2) Water flush 150ml Q6H if allowed, adjust PRN 3) TPN if NPO > 7 days 4) Monitor NPO status, lab values, wt trend, I/O Expected Outcomes/Goals: Intake to meet at least 75% estimated needs Lab values to improve FU 2-3 days Date of Service: Mar 14, 2025 Billing Provider: ADDISON CHAPIN MD Common Visit Codes: [id number] CARE 30-74 MIN OPHELIA NUNEZ RESIDENT Mar 14, 2025 19:08 ADDISON CHAPIN MD Mar 15, 2025 15:27
[2025-03-14] MEDS: LACTULOSE 20Gm/30ML SOLN PO SCH (21:39)
[2025-03-14] MEDS: SODIUM CHLOR 0.9% PF (SALINE LOCK) 10ML VIAL/SYR IV SCH (21:40)
[2025-03-15] VITALS (111 sets, daily range): BP systolic 81–132; BP diastolic 52–83; PULSE 50–83; RESP 6–22; TEMP 97.2–99.3; O2SAT 87–100
[2025-03-15 05:44] LABS: Hematocrit 31.9 % (41.0-53.0); Hemoglobin 10.4 g/dL (13.5-17.5); Mean Corpuscular Hemoglobin 27.5 pg (28.0-32.0); Mean Corpuscular Volume 84.0 fL (80.0-100.0); Nucleated Red Blood Cells % 0.2 %
--- NOTE | 2025-03-15 05:47 | DVH ---
Exam: US US GUIDED VASCULAR ACCESS Clinical History: PICC LINE PLACEMENT Comparison: None Findings: Targeted sonographic evaluation of the arm vein was obtained utilizing grayscale and color Doppler im aging. IMPRESSION: Sonographic assistance for peripherally inserted central line placement. Please refer to procedural r eport for detailed findings.
--- NOTE | 2025-03-15 05:48 | DVH ---
CHEST RADIOGRAPH Indication: SOB Technique: Single frontal view of the chest was obtained COMPARISON: XY CHEST PORTABLE on DOS: 03/13/25, XY CHEST XRAY 1 VIEW on DOS: 03/12/25, XY CHEST PORTABL E on DOS: 03/11/25, XY CHEST XRAY 1 VIEW on DOS: 03/11/25, XY CHEST XRAY 1 VIEW on DOS: 03/10/25 FINDINGS: Lines and Tubes: Endotracheal tube and enteric catheter in satisfactory position. 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 Lungs: Congestion Pleura: No effusion. No pneumothorax. Cardiomediastinal contours: Unremarkable Bones: Unremarkable IMPRESSION: Lines and tubes in satisfactory position. No significant interval change.
[2025-03-15 05:59] LABS: Anion Gap 7 (5-15); Carbon Dioxide 30 mmol/L (20-31); Chloride 106 mmol/L (98-107); Potassium 3.8 mmol/L (3.5-5.1); Sodium 143 mmol/L (136-145)
[2025-03-15 06:04] LABS: BUN/Creatinine Ratio 13.8 (10.0-20.0)
[2025-03-15 06:12] LABS: Blood Urea Nitrogen 8 mg/dL (9-23); Calcium 8.5 mg/dL (8.7-10.4); Glucose 111 mg/dL (74-106)
[2025-03-15 06:40] LABS: Base Excess 3.7 mmol/L (-2.0-3.0)
--- NOTE | 2025-03-15 11:04 | DVHPNRES ---
Progress Note Date Seen: Mar 15, 2025 Resident Creating Document: DERICK NUNEZGHISLAINE RESIDENT Has the PT tested + for MRSA If YES, has PT been informed?: No Medical Necessity Reason Pt with a Central, PICC or Fol: Yes Subjective Review of Systems Patient is a 65-year-old male with a medical history of COPD, seizures, dementia, hypothyroidism, BPH, Parkinson's disease was brought to the ED via EMS after having generalized tonic-clonic seizure. As per the family patient had 2 per seizures that day while on Keppra. The ED patient was intubated for airway protection due to postictal status. Patient was initially seen to have mixed respiratory and metabolic acidosis with elevated lactic acid levels. CT abdomen pelvis was done which showed possible left pyelonephritis with the atrophic left kidney and mild left hydroureteronephrosis, prostatomegaly with secondary findings to suggest chronic bladder outlet obstruction, multifocal airspace disease in the lungs suspicious for multifocal infection. Sputum culture showed growth of Klebsiella and E coli. IR were consulted for suprapubic catheter placement but family refused due to previous suprapubic catheter that the patient pulled out. 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 Patient is incontinent and no Galeas's catheter could be placed, urology were consulted who recommended conservative management given the patient has dementia, severely contracted and has poor prognosis. Past medical history: COPD, seizures, dementia, hypothyroidism, BPH, Parkinson's disease Surgical history: Multiple Galeas catheter and suprapubic catheter Social history: Patient lives at home and does not smoke, drink alcohol, no drugs Review of systems 03/15- patient seen and examined at the bedside. ABG showed mixed respiratory acidosis with metabolic alkalosis. Chest x-ray shows slight worsening of opacities in the right side. Overnight patient did not have any fevers, vitals were stable. Patient maintains SpO2 more than 95% on the same ventilator settings. Increased peak pressures and as we tried to decrease the sedation patient starts to have breath stacking following vegetation had to be increased. No bowel movements yet, patient will be given Fleet enema. Patient's blood pressure was low and norepinephrine increased slightly. ABG showed respiratory acidosis with metabolic alkalosis. Objective vital signs Vital Sign Date Time Temp Pulse Resp B/P (MAP) Pulse Ox O2 Delivery O2 Flow Rate FiO2 03/15/25 10:00 83/55 03/15/25 09:56 63 20 93 30 03/15/25 08:00 Mechanical Ventilator+ 03/15/25 06:45 98.6 209.5 Total Intake and Output 03/14/25 03/14/25 03/15/25 15:00 23:00 07:00 Intake Total 574.75 ml 836.438 ml 800.941 ml Balance 574.75 ml 836.438 ml 800.941 ml medications Current Medications Medications Dose Ordered Sig/Andra Route Start Time Stop Time Status Last Admin Dose Admin Fentanyl Citrate 250 ml @ 2.5 mls/hr Q24H IV 03/06/25 21:00 03/15/25 02:32 10 MLS/HR Midazolam HCl 50 ml @ 1 mls/hr Q24H IV 03/06/25 21:15 03/15/25 04:20 3 MLS/HR Albuterol 2.5 mg Q6HPRN PRN NEB 03/07/25 04:15 03/14/25 11:55 2.5 MG Levetiracetam 100 ml @ 400 mls/hr BID IV 03/07/25 10:00 03/15/25 10:54 400 MLS/HR Pantoprazole Sodium 40 mg DAILY IV 03/08/25 10:00 03/15/25 10:53 40 MG Enoxaparin Sodium 40 mg DAILY SC 03/08/25 10:00 03/15/25 10:53 40 MG Meropenem 50 ml @ 17 mls/hr Q8HR IV 03/07/25 22:00 03/15/25 06:21 17 MLS/HR Norepinephrine Bitartrate 250 ml @ 3.75 mls/hr Q24H IV 03/08/25 13:00 03/15/25 08:03 5.625 MLS/HR Finasteride 5 mg DAILY GT 03/09/25 10:00 03/14/25 10:31 5 MG Tamsulosin HCl 0.4 mg QPM PO 03/09/25 18:00 03/14/25 18:11 0.4 MG Enteral Nutritional Formula 1,000 ml 40ML/HR GT 03/09/25 15:15 03/11/25 17:55 1,000 ML Purified Water 100 ml Q6HR GT 03/14/25 12:00 03/15/25 06:14 100 ML Lactulose 30 ml BID PO 03/14/25 22:00 03/15/25 10:53 30 ML Sodium Chloride 10 ml QSHIFT@10,22 IV 03/14/25 22:00 03/15/25 10:54 10 ML Examination Patient is sedated and the mechanically ventilated with a RASS -4 Gen - no pallor, no icterus, no cyanosis, no clubbing, no LAD, no edema . Skin - Patients skin is warm and dry. HEENT - normocephalic, atraumatic, moist mucous membranes. Neck - no LAD, no JVD Pulmonary - B/L equal breath sounds with mild rales on the right, no wheezing, no stridor. cardiovascular - regular S1,S2 heard, no added sounds, no murmurs heard. GI - soft abdomen. Bowel sounds normoactive Skeletal: Severely contracted lower extremities Neurological - sedated with a RASS-4 and on mechanical ventilation laboratory and microbiology Laboratory Tests 03/15/25 04:50 Test 03/15/25 04:50 Range/Units Serum Glucose 111 H 74-106 mg/dL Microbiology Date/Time Source Procedure Growth Status 03/07/25 12:10 Penis Gram Stain - Final Complete 03/07/25 12:10 Wound Culture - Final Escherichia coli Complete 03/06/25 19:55 Blood Blood Culture - Final NO GROWTH AFTER 5 DAYS OF INCUBATION. Complete 03/06/25 17:55 Sputum Gram Stain - Final Complete 03/06/25 17:55 Respiratory Culture - Final Escherichia coli Klebsiella oxytoca Complete Problem List/Assessment/Plan Problem List/Assessment/Plan Neurology: Acute metabolic encephalopathy likely due to breakthrough seizure Breakthrough seizures, possible secondary to septic shock Previous history of stroke - Head Ct showed No acute intracranial abnormality, Chronic sequelae of microvascular disease and atrophic cortical volume loss. - fentanyl and versed, Precedex was used for weaning trial - RASS -4 - Keppra 500 mg IV Bid Cardiology: septic shock secondary to complicated UTI/ pneumonia Possible heart failure with mildly reduced ejection fraction, chronic - increasing requirements of levophed overnight - ECHO: very limited study- lvef >45%, cannot be more accurate, RV mild dysfunction - BNP normal Respiratory Acute on chronic hypercapnic respiratory failure COPD, possible exacerbation, improved Pneumonia d/t gram positive/negative bacteria - minimal ventilator settings - ABG reviewed, mixed resp acidosis with metabolic alkalosis - on meropenam - CXR shows pulm vasc congestion, with slight worsening of right sided opacities - lasix 40mg IV daily Nephrology Septic shock due to complicated UTI Atrophic left kidney with mild left hydroureteronephrosis. pyelonephritis. Prostatomegaly chronic bladder outlet obstruction. 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, patient also pulled out previous suprapubic catheter urology was consulted: they recommend conservative management patient urinates spontaneously order for suprapubic catheter placement: but family refuses - culture from penile wound show growth of E.coli - on meropenem - continue finasteride and tamsulosin Metabolic: possible Euthyroid sickness syndrome Lactic acidosis, resolved Hypernatremia, resolved free water at 100ml q6hr Heme/onc Anemia normocytic hypochromic stable H&H Gastroenterology Constipation - lactulose bid - fleet enema DVT prophylaxis: enoxaparin PUD prophylaxis: protonix right PICC placed on 03/14 ETT 03/06 No galeas Goals of care discussed with daughter Danica and she was explained that it is day 9 assessed the patient is on mechanical ventilation and as per the guidelines patient should be extubated by day 14 prevent ventilator associated adverse effects including ventilator associated pneumonia. She was also explained that the patient will be difficult to extubate because of his underlying dementia and history of stroke as he is not able to follow commands and whenever sedation is decreased patient becomes apneic and starts to have breath stacking. Daughter was explained about the possibility of tracheostomy but she said " no trach and no PEG". On further asking about other options patient reported that she wants him to be full code and continue with mechanical ventilation and that if the patient is not able to be extubated she might consider making him comfort measures. Code status: Full code Critical care time spent excluding procedures 62 mins. Case discussed with Dr Chapin Plan discussed with: Daughter, Other (DANIKA Bingham) My Orders My Orders Orders - OPHELIA NUNEZ RESIDENT Procedure Category Date Status Time Free Water PHA 03/14/25 In Process 12:00 Lactulose Oral PHA 03/14/25 In Process 22:00 Change Dressing Prn MARVIN 03/14/25 In Process 14:49 Sodium Chloride Lock PHA 03/14/25 In Process (Saline Lock Ns) 22:00 Do Not Use Picc For [facility] 03/14/25 In Process Blood Cult 14:49 May Draw Blood From [facility] 03/14/25 In Process Picc 14:49 Ok To Use Picc MARVIN 03/14/25 In Process 14:49 Change Picc Dressing [facility] 03/14/25 In Process Q7 Days 14:49 Us Guided Vascular US 03/14/25 Resulted Access 14:49 Chest Xray 1 View XY 03/15/25 Resulted 04:00 Abg W/ Co-Ox RT 03/15/25 Logged 04:00 Dietary Evaluation Review Comments: 1) TF Jevity 1.2Cal @ 50ml/hr x 24hr along with Pro-stat 1 pk daily (goal). Start @ 20ml/hr, increase 10ml/hr Q4H until goal is reached. TF @ goal volume provides 1540 kcal (100% energy needs), 81 gm protein (100% protein needs), 968 ml free water. 2) Water flush 150ml Q6H if allowed, adjust PRN 3) TPN if NPO > 7 days 4) Monitor NPO status, lab values, wt trend, I/O Expected Outcomes/Goals: Intake to meet at least 75% estimated needs Lab values to improve FU 2-3 days Date of Service: Mar 15, 2025 Billing Provider: ADDISON CHAPIN MD Common Visit Codes: [id number] CARE 30-74 MIN OPHELIA NUNEZ RESIDENT Mar 15, 2025 11:04 ADDISON CHAPIN MD Mar 16, 2025 15:19
--- NOTE | 2025-03-15 17:00 | MEDREC ---
COUNTS INCLUDE 234 BEDS AT THE [facility] Intervention Section I COUNTS INCLUDE 234 BEDS AT THE [facility] Intervention: Deescalate AB based on CS (CONSIDER DE-ESCALATING MEROPENEM TO CEFTRIAXONE BASED ON CULTURE RESULTS.) ARCHIE ZAPIEN [facility] RESIDENT Mar 15, 2025 17:00
[2025-03-15] MEDS: FUROSEMIDE 40 MG/4 ML VIAL IV ONE (18:11)
[2025-03-15] MEDS: FLEET ENEMA(ADULT) 135 ML PR ONE (18:23)
[2025-03-16] VITALS (109 sets, daily range): BP systolic 61–143; BP diastolic 38–93; PULSE 54–87; RESP 0–22; TEMP 96.6–99.9; O2SAT 90–100
--- NOTE | 2025-03-16 05:00 | DVH ---
CHEST RADIOGRAPH Indication: on vent, right sided opacities Technique: Single frontal view of the chest was obtained COMPARISON: XY CHEST XRAY 1 VIEW on DOS: 03/15/25, XY CHEST PORTABLE on DOS: 03/13/25, XY CHEST XRAY 1 VIEW on DOS: 03/12/25, XY CHEST PORTABLE on DOS: 03/11/25, XY CHEST XRAY 1 VIEW on DOS: 03/11/25 FINDINGS: Lines and Tubes: Slight interval retraction of the endotracheal tube such that the tip now projects a pproximately 6.3 cm above the level of the silas. Remaining lines and tubes unchanged. Lungs: Interval improvement in bibasilar pulmonary airspace disease. Pleura: No effusion. No pneumothorax. Cardiomediastinal contours: Unremarkable Bones: Unremarkable IMPRESSION: 1. Interval improvement in bibasilar pulmonary airspace disease. 2. Interval retraction of the endotracheal tube such that the tip now projects approximately 6.3 cm a antonina the level of the silas. Remaining lines and tubes unchanged.
[2025-03-16 05:17] LABS: Hematocrit 30.9 % (41.0-53.0); Hemoglobin 10.0 g/dL (13.5-17.5); Mean Corpuscular Hemoglobin 27.4 pg (28.0-32.0); Mean Corpuscular Volume 84.5 fL (80.0-100.0); Nucleated Red Blood Cells % 0.1 %
[2025-03-16 05:33] LABS: Anion Gap 7 (5-15); Carbon Dioxide 33 mmol/L (20-31); Chloride 101 mmol/L (98-107); Potassium 3.7 mmol/L (3.5-5.1); Sodium 141 mmol/L (136-145)
[2025-03-16 05:37] LABS: Calcium 8.4 mg/dL (8.7-10.4)
[2025-03-16 05:39] LABS: BUN/Creatinine Ratio 15.7 (10.0-20.0)
[2025-03-16 05:41] LABS: Blood Urea Nitrogen 8 mg/dL (9-23); Glucose 114 mg/dL (74-106)
[2025-03-16 06:25] LABS: Base Excess 9.3 mmol/L (-2.0-3.0)
[2025-03-16] MEDS: FUROSEMIDE 40 MG/4 ML VIAL IV SCH (10:10)
--- NOTE | 2025-03-16 10:13 | DVHPNRES ---
Progress Note Date Seen: Mar 16, 2025 Resident Creating Document: DERICK NUNEZGHISLAINE RESIDENT Has the PT tested + for MRSA If YES, has PT been informed?: No Medical Necessity Reason Pt with a Central, PICC or Fol: Yes Subjective Review of Systems Patient is a 65-year-old male with a medical history of COPD, seizures, dementia, hypothyroidism, BPH, Parkinson's disease was brought to the ED via EMS after having generalized tonic-clonic seizure. As per the family patient had 2 per seizures that day while on Keppra. The ED patient was intubated for airway protection due to postictal status. Patient was initially seen to have mixed respiratory and metabolic acidosis with elevated lactic acid levels. CT abdomen pelvis was done which showed possible left pyelonephritis with the atrophic left kidney and mild left hydroureteronephrosis, prostatomegaly with secondary findings to suggest chronic bladder outlet obstruction, multifocal airspace disease in the lungs suspicious for multifocal infection. Sputum culture showed growth of Klebsiella and E coli. IR were consulted for suprapubic catheter placement but family refused due to previous suprapubic catheter that the patient pulled out. 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 Patient is incontinent and no Galeas's catheter could be placed, urology were consulted who recommended conservative management given the patient has dementia, severely contracted and has poor prognosis. Past medical history: COPD, seizures, dementia, hypothyroidism, BPH, Parkinson's disease Surgical history: Multiple Galeas catheter and suprapubic catheter Social history: Patient lives at home and does not smoke, drink alcohol, no drugs Review of systems 03/16- patient seen and examined at the bedside. ABG showed mixed respiratory acidosis with metabolic alkalosis. Chest x-ray shows improvement of bilateral opacities. Overnight patient did not have any fevers readings of low temperature up to 96.6 F. norepinephrine requirement increased up to 4.5 microgram/minute. As we tried to decrease the sedation patient starts to have breath stacking following which sedation had to be increased. No bowel movements even after Fleet enema. Objective vital signs Vital Sign Date Time Temp Pulse Resp B/P (MAP) Pulse Ox O2 Delivery O2 Flow Rate FiO2 03/16/25 09:02 66 20 115/80 (92) 98 30 03/16/25 08:00 Mechanical Ventilator+ 03/16/25 08:00 96.8 206.2 Total Intake and Output 03/15/25 03/15/25 03/16/25 15:00 23:00 07:00 Intake Total 334.751 ml 1122.128 ml 888.066 ml Balance 334.751 ml 1122.128 ml 888.066 ml medications Current Medications Medications Dose Ordered Sig/Andra Route Start Time Stop Time Status Last Admin Dose Admin Fentanyl Citrate 250 ml @ 2.5 mls/hr Q24H IV 03/06/25 21:00 03/15/25 21:56 15 MLS/HR Midazolam HCl 50 ml @ 1 mls/hr Q24H IV 03/06/25 21:15 03/16/25 04:41 10 MLS/HR Albuterol 2.5 mg Q6HPRN PRN NEB 03/07/25 04:15 03/15/25 20:36 2.5 MG Levetiracetam 100 ml @ 400 mls/hr BID IV 03/07/25 10:00 03/15/25 20:52 400 MLS/HR Pantoprazole Sodium 40 mg DAILY IV 03/08/25 10:00 03/15/25 10:53 40 MG Enoxaparin Sodium 40 mg DAILY SC 03/08/25 10:00 03/15/25 10:53 40 MG Meropenem 50 ml @ 17 mls/hr Q8HR IV 03/07/25 22:00 03/16/25 04:17 17 MLS/HR Norepinephrine Bitartrate 250 ml @ 3.75 mls/hr Q24H IV 03/08/25 13:00 03/15/25 08:03 5.625 MLS/HR Finasteride 5 mg DAILY GT 03/09/25 10:00 03/15/25 12:59 5 MG Tamsulosin HCl 0.4 mg QPM PO 03/09/25 18:00 03/15/25 17:23 0.4 MG Enteral Nutritional Formula 1,000 ml 40ML/HR GT 03/09/25 15:15 03/11/25 17:55 1,000 ML Purified Water 100 ml Q6HR GT 03/14/25 12:00 03/16/25 04:17 100 ML Lactulose 30 ml BID PO 03/14/25 22:00 03/15/25 20:30 30 ML Sodium Chloride 10 ml QSHIFT@10,22 IV 03/14/25 22:00 03/15/25 20:30 10 ML Furosemide 40 mg DAILY IV 03/16/25 10:00 Examination Patient is sedated and the mechanically ventilated with a RASS -4 Gen - no pallor, no icterus, no cyanosis, no clubbing, no LAD, bilateral 3+ pitting edema in the feet Skin - Patients skin is warm and dry. HEENT - normocephalic, atraumatic, moist mucous membranes. Neck - no LAD, no JVD Pulmonary - B/L equal breath sounds with mild rales on the right, no wheezing, no stridor. cardiovascular - regular S1,S2 heard, no added sounds, no murmurs heard. GI - soft abdomen. Bowel sounds normoactive Skeletal: Severely contracted lower extremities Neurological - sedated with a RASS-4 and on mechanical ventilation laboratory and microbiology Laboratory Tests 03/16/25 04:39 Test 03/16/25 04:39 Range/Units Serum Glucose 114 H 74-106 mg/dL Microbiology Date/Time Source Procedure Growth Status 03/07/25 12:10 Penis Gram Stain - Final Complete 03/07/25 12:10 Wound Culture - Final Escherichia coli Complete 03/06/25 19:55 Blood Blood Culture - Final NO GROWTH AFTER 5 DAYS OF INCUBATION. Complete 03/06/25 17:55 Sputum Gram Stain - Final Complete 03/06/25 17:55 Respiratory Culture - Final Escherichia coli Klebsiella oxytoca Complete Problem List/Assessment/Plan Problem List/Assessment/Plan Neurology: Acute metabolic encephalopathy likely due to breakthrough seizure Breakthrough seizures, possible secondary to septic shock Previous history of stroke - Head Ct showed No acute intracranial abnormality, Chronic sequelae of microvascular disease and atrophic cortical volume loss. - fentanyl and versed, Precedex was used for weaning trial - RASS -4 - Keppra 500 mg IV Bid Cardiology: septic shock secondary to complicated UTI/ pneumonia Possible heart failure with mildly reduced ejection fraction, chronic - increasing requirements of levophed overnight - ECHO: very limited study- lvef >45%, cannot be more accurate, RV mild dysfunction - continued on meropenem Respiratory Acute on chronic hypercapnic respiratory failure COPD, possible exacerbation, improved Pneumonia d/t gram positive/negative bacteria - minimal ventilator settings - ABG reviewed, mixed resp acidosis with metabolic alkalosis - on meropenam - CXR shows improvement of opacities after patient was started on Lasix yesterday - d/lluvia lasix as patient was hypotensive Nephrology Septic shock due to complicated UTI Atrophic left kidney with mild left hydroureteronephrosis. pyelonephritis. Prostatomegaly chronic bladder outlet obstruction. 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, patient also pulled out previous suprapubic catheter urology was consulted: they recommend conservative management patient urinates spontaneously order for suprapubic catheter placement: but family refuses - culture from penile wound show growth of E.coli - on ceftriaxone - continue finasteride and tamsulosin Metabolic: possible Euthyroid sickness syndrome Lactic acidosis, resolved Hypernatremia, resolved free water at 100ml q6hr Heme/onc Anemia normocytic hypochromic stable H&H Gastroenterology Constipation - lactulose bid - fleet enema - DVT prophylaxis: enoxaparin PUD prophylaxis: protonix right PICC placed on 03/14 ETT 03/06 No galeas Goals of care discussed with daughter Danica and she was explained that it is day 10 assessed the patient is on mechanical ventilation and as per the guidelines patient should be extubated by day 14 prevent ventilator associated adverse effects including ventilator associated pneumonia. She was also explained that the patient will be difficult to extubate because of his underlying dementia and history of stroke as he is not able to follow commands and whenever sedation is decreased patient becomes apneic and starts to have breath stacking. Daughter was explained about the possibility of tracheostomy but she said " no trach and no PEG". On further asking about other options patient reported that she wants him to be full code and continue with mechanical ventilation and that if the patient is not able to be extubated she might consider making him comfort measures. Code status: Full code Critical care time spent excluding procedures 63 mins. Case discussed with Dr Chapin Plan discussed with: Other (DANIKA Bingham) My Orders My Orders Orders - OPHELIA NUNEZ RESIDENT Procedure Category Date Status Time Chest Xray 1 View XY 03/16/25 Resulted 04:00 Abg W/ Co-Ox RT 03/16/25 Logged 04:00 Furosemide Injection PHA 03/16/25 In Process (Lasix Injection) 10:00 Dietary Evaluation Review Comments: 1) TF Jevity 1.2Cal @ 50ml/hr x 24hr along with Pro-stat 1 pk daily (goal). Start @ 20ml/hr, increase 10ml/hr Q4H until goal is reached. TF @ goal volume provides 1540 kcal (100% energy needs), 81 gm protein (100% protein needs), 968 ml free water. 2) Water flush 150ml Q6H if allowed, adjust PRN 3) TPN if NPO > 7 days 4) Monitor NPO status, lab values, wt trend, I/O Expected Outcomes/Goals: Intake to meet at least 75% estimated needs Lab values to improve FU 2-3 days Date of Service: Mar 16, 2025 Billing Provider: ADDISON CHAPIN MD Common Visit Codes: [id number] CARE 30-74 MIN OPHELIA NUNEZ RESIDENT Mar 16, 2025 10:13 ADDISON CHAPIN MD Mar 17, 2025 12:52
--- NOTE | 2025-03-16 14:18 | DVH ---
Exam: XY KUB ABDOMEN SINGLE VIEW Indication: no BM Comparison: None Technique: 2 radiographic views of the abdomen. Findings: Enteric catheter in satisfactory position. Nonobstructive bowel gas pattern noted. Moderate colonic stool. There is no definite evidence for pneumoperitoneum. No abnormal calcifications noted. Impression: Nonobstructive bowel gas pattern noted.
[2025-03-16] MEDS ORDERED: cefTRIAXone 2GM/50ML D5W 50 ML IV ONE (16:15)
[2025-03-16] MEDS: cefTRIAXone 2GM/50ML D5W 50 ML IV ONE (17:11)
[2025-03-16] MEDS: GOLYTELY 4L KIT PO ONE (21:18)
[2025-03-17] VITALS (113 sets, daily range): BP systolic 82–125; BP diastolic 35–83; PULSE 52–116; RESP 0–21; TEMP 94.6–99.9; O2SAT 90–100
[2025-03-17 05:28] LABS: Nucleated Red Blood Cells % 0.0 %
[2025-03-17 05:30] LABS: Hematocrit 30.5 % (41.0-53.0); Hemoglobin 10.2 g/dL (13.5-17.5); Mean Corpuscular Hemoglobin 27.7 pg (28.0-32.0); Mean Corpuscular Volume 83.1 fL (80.0-100.0)
[2025-03-17 05:32] LABS: Anion Gap 8 (5-15); Potassium 3.6 mmol/L (3.5-5.1); Sodium 140 mmol/L (136-145)
[2025-03-17 05:33] LABS: Calcium 8.6 mg/dL (8.7-10.4); Carbon Dioxide 34 mmol/L (20-31); Chloride 98 mmol/L (98-107)
--- NOTE | 2025-03-17 05:36 | DVH ---
CHEST RADIOGRAPH Indication: On vent Technique: Single frontal view of the chest was obtained COMPARISON: XY CHEST XRAY 1 VIEW on DOS: 03/16/25, XY CHEST XRAY 1 VIEW on DOS: 03/15/25, XY CHEST PORT ABLE on DOS: 03/13/25, XY CHEST XRAY 1 VIEW on DOS: 03/12/25, XY CHEST PORTABLE on DOS: 03/11/25 FINDINGS: Lines and Tubes: Unchanged. Lungs: Mild bibasilar atelectasis. The lungs are otherwise clear. Pleura: No effusion. No pneumothorax. Cardiomediastinal contours: Unremarkable Bones: Unremarkable IMPRESSION: 1. No acute disease. Mild bibasilar atelectasis. 2. Lines and tubes unchanged.
[2025-03-17 05:38] LABS: BUN/Creatinine Ratio 15.4 (10.0-20.0)
[2025-03-17 05:57] LABS: Blood Urea Nitrogen 8 mg/dL (9-23); Glucose 131 mg/dL (74-106)
[2025-03-17 06:01] LABS: Base Excess 9.2 mmol/L (-2.0-3.0)
--- NOTE | 2025-03-17 08:54 | DVHPNRES ---
Progress Note Date Seen: Mar 17, 2025 Resident Creating Document: DERICK NUNEZTRACILINDSAY RESIDENT Has the PT tested + for MRSA If YES, has PT been informed?: No Medical Necessity Reason Pt with a Central, PICC or Fol: Yes Subjective Review of Systems Patient is a 65-year-old male with a medical history of COPD, seizures, dementia, hypothyroidism, BPH, Parkinson's disease was brought to the ED via EMS after having generalized tonic-clonic seizure. As per the family patient had 2 per seizures that day while on Keppra. The ED patient was intubated for airway protection due to postictal status. Patient was initially seen to have mixed respiratory and metabolic acidosis with elevated lactic acid levels. CT abdomen pelvis was done which showed possible left pyelonephritis with the atrophic left kidney and mild left hydroureteronephrosis, prostatomegaly with secondary findings to suggest chronic bladder outlet obstruction, multifocal airspace disease in the lungs suspicious for multifocal infection. Sputum culture showed growth of Klebsiella and E coli. IR were consulted for suprapubic catheter placement but family refused due to previous suprapubic catheter that the patient pulled out. 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 Patient is incontinent and no Galeas's catheter could be placed, urology were consulted who recommended conservative management given the patient has dementia, severely contracted and has poor prognosis. Past medical history: COPD, seizures, dementia, hypothyroidism, BPH, Parkinson's disease Surgical history: Multiple Galeas catheter and suprapubic catheter Social history: Patient lives at home and does not smoke, drink alcohol, no drugs Review of systems 03/17- patient seen and examined at the bedside. ABG showed mixed metabolic alkalosis and respiratory acidosis. Chest x-ray similar as compared to yesterday and patient is on minimal ventilator settings. Overnight had low temperature is down to 94.6 F following which she was put on heating measures. norepinephrine requirement increased up to 8.5 microgram/minute. As we tried to decrease the sedation patient starts to have breath stacking following which sedation had to be increased. Patient has a small bowel movement following administration of GoLYTELY Objective vital signs Vital Sign Date Time Temp Pulse Resp B/P (MAP) Pulse Ox O2 Delivery O2 Flow Rate FiO2 03/17/25 08:19 98/62 03/17/25 08:00 97.2 66 0 95 97.2 03/17/25 07:54 30 03/17/25 06:00 Mechanical Ventilator+ Total Intake and Output 03/16/25 03/16/25 03/17/25 15:00 23:00 07:00 Intake Total 367.504 ml 1134.188 ml 1955.588 ml Output Total 0 ml Balance 367.504 ml 1134.188 ml 1955.588 ml medications Current Medications Medications Dose Ordered Sig/Andra Route Start Time Stop Time Status Last Admin Dose Admin Fentanyl Citrate 250 ml @ 2.5 mls/hr Q24H IV 03/06/25 21:00 03/17/25 05:57 15 MLS/HR Midazolam HCl 50 ml @ 1 mls/hr Q24H IV 03/06/25 21:15 03/17/25 08:19 10 MLS/HR Albuterol 2.5 mg Q6HPRN PRN NEB 03/07/25 04:15 03/15/25 20:36 2.5 MG Levetiracetam 100 ml @ 400 mls/hr BID IV 03/07/25 10:00 03/16/25 21:17 400 MLS/HR Pantoprazole Sodium 40 mg DAILY IV 03/08/25 10:00 03/16/25 10:10 40 MG Enoxaparin Sodium 40 mg DAILY SC 03/08/25 10:00 03/16/25 10:11 40 MG Norepinephrine Bitartrate 250 ml @ 3.75 mls/hr Q24H IV 03/08/25 13:00 03/17/25 05:52 13.125 MLS/HR Finasteride 5 mg DAILY GT 03/09/25 10:00 03/16/25 10:10 5 MG Tamsulosin HCl 0.4 mg QPM PO 03/09/25 18:00 03/16/25 18:11 0.4 MG Enteral Nutritional Formula 1,000 ml 40ML/HR GT 03/09/25 15:15 03/16/25 11:28 1,000 ML Lactulose 30 ml BID PO 03/14/25 22:00 03/16/25 21:18 30 ML Sodium Chloride 10 ml QSHIFT@10,22 IV 03/14/25 22:00 03/16/25 21:20 10 ML Amino Acid Protein 30 ml DAILY GT 03/17/25 10:00 Examination Patient is sedated and the mechanically ventilated with a RASS -5 Gen - no pallor, no icterus, no cyanosis, no clubbing, no LAD, bilateral 3+ pitting edema in the feet Skin - Patients skin is warm and dry. HEENT - normocephalic, atraumatic, moist mucous membranes. Neck - no LAD, no JVD Pulmonary - B/L equal breath sounds with mild rales on the right, no wheezing, no stridor. cardiovascular - regular S1,S2 heard, no added sounds, no murmurs heard. GI - soft abdomen. Bowel sounds normoactive Skeletal: Severely contracted lower extremities Neurological - sedated with a RASS-5 and on mechanical ventilation laboratory and microbiology Laboratory Tests 03/17/25 04:50 Test 03/17/25 04:50 Range/Units Serum Glucose 131 H 74-106 mg/dL Microbiology Date/Time Source Procedure Growth Status 03/07/25 12:10 Penis Gram Stain - Final Complete 03/07/25 12:10 Wound Culture - Final Escherichia coli Complete 03/06/25 19:55 Blood Blood Culture - Final NO GROWTH AFTER 5 DAYS OF INCUBATION. Complete 03/06/25 17:55 Sputum Gram Stain - Final Complete 03/06/25 17:55 Respiratory Culture - Final Escherichia coli Klebsiella oxytoca Complete Problem List/Assessment/Plan Problem List/Assessment/Plan Neurology: Acute metabolic encephalopathy likely due to breakthrough seizure Breakthrough seizures, possible secondary to septic shock Previous history of stroke - Head Ct showed No acute intracranial abnormality, Chronic sequelae of microvascular disease and atrophic cortical volume loss. - fentanyl and versed - RASS -5 - Keppra 500 mg IV Bid Cardiology: septic shock secondary to complicated UTI/ pneumonia Possible heart failure with mildly reduced ejection fraction, chronic - increasing requirements of levophed overnight - ECHO: very limited study- lvef >45%, cannot be more accurate, RV mild dysfunction - continued on meropenem Respiratory Acute on chronic hypercapnic respiratory failure COPD, possible exacerbation, improved Pneumonia d/t gram positive/negative bacteria - minimal ventilator settings - ABG reviewed, mixed resp acidosis with metabolic alkalosis - on meropenam - CXR shows improvement of opacities after patient was started on Lasix 03/15 - d/lluvia lasix 0n 03/16 as patient was hypotensive Nephrology Septic shock due to complicated UTI Atrophic left kidney with mild left hydroureteronephrosis. pyelonephritis. Prostatomegaly chronic bladder outlet obstruction. 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, patient also pulled out previous suprapubic catheter urology was consulted: they recommend conservative management patient urinates spontaneously order for suprapubic catheter placement: but family refuses - culture from penile wound show growth of E.coli - on ceftriaxone - continue finasteride and tamsulosin Metabolic: possible Euthyroid sickness syndrome Lactic acidosis, resolved Hypernatremia, resolved Heme/onc Anemia normocytic hypochromic stable H&H Gastroenterology Constipation - lactulose bid - fleet enema - golytlely- small bowel movement on 03/17 DVT prophylaxis: enoxaparin PUD prophylaxis: protonix right PICC placed on 03/14 ETT 03/06 No galeas Goals of care discussed with daughter Danica and she was explained that it is day 10 assessed the patient is on mechanical ventilation and as per the guidelines patient should be extubated by day 14 prevent ventilator associated adverse effects including ventilator associated pneumonia. She was also explained that the patient will be difficult to extubate because of his underlying dementia and history of stroke as he is not able to follow commands and whenever sedation is decreased patient becomes apneic and starts to have breath stacking. Daughter was explained about the possibility of tracheostomy but she said " no trach and no PEG". On further asking about other options patient reported that she wants him to be full code and continue with mechanical ventilation and that if the patient is not able to be extubated she might consider making him comfort measures. Code status: Full code Critical care time spent excluding procedures 66 mins. Case discussed with Dr Chapin Plan discussed with: Daughter My Orders My Orders Orders - OPHELIA NUNEZ RESIDENT Procedure Category Date Status Time Kub Abdomen Single XY 03/16/25 Resulted View 13:10 Ventilator Orders RT 03/16/25 Transmitted 16:11 Amino Acids-Protein PHA 03/17/25 In Process Hydrolysat (Pro-Stat 10:00 Abg W/ Co-Ox RT 03/17/25 Logged 04:00 Abg W/ Co-Ox RT 03/17/25 Logged 04:00 Chest Xray 1 View XY 03/17/25 Resulted 04:15 Dietary Evaluation Review Comments: 1) TF Jevity 1.2Cal @ 50ml/hr x 24hr along with Pro-stat 1 pk daily (goal). Start @ 20ml/hr, increase 10ml/hr Q4H until goal is reached. TF @ goal volume provides 1540 kcal (100% energy needs), 81 gm protein (100% protein needs), 968 ml free water. 2) Water flush 150ml Q6H if allowed, adjust PRN 3) TPN if NPO > 7 days 4) Monitor NPO status, lab values, wt trend, I/O Expected Outcomes/Goals: Intake to meet at least 75% estimated needs Lab values to improve FU 2-3 days Date of Service: Mar 17, 2025 Billing Provider: ADDISON CHAPIN MD Common Visit Codes: [id number] CARE 30-74 MIN OPHELIA NUNEZ RESIDENT Mar 17, 2025 08:54 ADDISON CHAPIN MD Mar 19, 2025 12:31
[2025-03-17] MEDS: Pro-Stat SF 30ml Vanilla GT SCH (09:28)
--- NOTE | 2025-03-17 13:29 | DVH ---
EXAM: XY CHEST PORTABLE Indication: RESP FAILURE Technique: Single frontal view of the chest was obtained Comparison: XY CHEST XRAY 1 VIEW on DOS: 03/17/25, XY CHEST XRAY 1 VIEW on DOS: 03/16/25, XY CHEST XRAY 1 VIEW on DOS: 03/15/25, XY CHEST PORTABLE on DOS: 03/13/25, XY CHEST XRAY 1 VIEW on DOS: 03/12/25 FINDINGS: Lines and Tubes: Endotracheal tube projects 5.5 cm above the silas. Enteric tube projects over the e xpected region stomach. Right PICC tip projects over superior vena cava. Lungs: Low lung volumes. Bibasilar atelectasis. Pleura: No effusion. No pneumothorax. Cardiomediastinal contours: Unremarkable. Atherosclerotic vascular calcifications of the thoracic ao rta are noted. Bones: No acute osseous abnormality. IMPRESSION: No significant change compared to prior exam allowing for differences in technique.
[2025-03-17] MEDS: cefTRIAXone 2GM/50ML D5W 50 ML IV ONE (14:33)
[2025-03-18] VITALS (113 sets, daily range): BP systolic 81–117; BP diastolic 52–81; PULSE 61–111; RESP 13–21; TEMP 97.5–99.5; O2SAT 89–100
[2025-03-18 05:12] LABS: Nucleated Red Blood Cells % 0.0 %
[2025-03-18 05:14] LABS: Hematocrit 30.8 % (41.0-53.0); Hemoglobin 10.3 g/dL (13.5-17.5); Mean Corpuscular Hemoglobin 27.7 pg (28.0-32.0); Mean Corpuscular Volume 83.2 fL (80.0-100.0)
[2025-03-18 05:27] LABS: Alanine Aminotransferase 38 U/L (7-40); Anion Gap 8 (5-15); BUN/Creatinine Ratio 13.1 (10.0-20.0); Chloride 99 mmol/L (98-107); Magnesium 2.1 mg/dL (1.6-2.6); Potassium 3.9 mmol/L (3.5-5.1); Sodium 139 mmol/L (136-145); Total Protein 6.1 g/dL (5.7-8.2)
[2025-03-18 05:35] LABS: Albumin 3.2 g/dL (3.2-4.8); Alkaline Phosphatase 125 U/L (46-116); Bilirubin, Total 0.3 mg/dL (0.2-1.0); Blood Urea Nitrogen 8 mg/dL (9-23); Calcium 8.5 mg/dL (8.7-10.4); Carbon Dioxide 32 mmol/L (20-31); Glucose 114 mg/dL (74-106)
[2025-03-18 06:02] LABS: Base Excess 8.3 mmol/L (-2.0-3.0)
--- NOTE | 2025-03-18 06:19 | DVH ---
CHEST RADIOGRAPH Indication: on vent Technique: Single frontal view of the chest was obtained COMPARISON: XY CHEST PORTABLE on DOS: 03/17/25, XY CHEST XRAY 1 VIEW on DOS: 03/17/25, XY CHEST XRAY 1 VIEW on DOS: 03/16/25, XY CHEST XRAY 1 VIEW on DOS: 03/15/25, XY CHEST PORTABLE on DOS: 03/13/25 FINDINGS: Lines and Tubes: Unchanged. Lungs: Stable appearing bibasilar atelectasis. No evidence of focal consolidation. Pleura: No effusion. No pneumothorax. Cardiomediastinal contours: Unremarkable Bones: Unremarkable IMPRESSION: 1. No acute disease. Bibasilar atelectasis. 2. Lines and tubes unchanged.
[2025-03-18] MEDS: cefTRIAXone 2GM/50ML D5W 50 ML IV SCH (09:55)
[2025-03-18] MEDS: PIPERACILLIN-TAZOB 3.375GM 100 ML IV SCH (14:00)
--- NOTE | 2025-03-18 16:38 | DVHPNRES ---
Progress Note Date Seen: Mar 18, 2025 Resident Creating Document: DERICK NUNEZTRACILINDSAY RESIDENT Has the PT tested + for MRSA If YES, has PT been informed?: No Medical Necessity Reason Pt with a Central, PICC or Fol: Yes Subjective Review of Systems Review of systems 03/18- patient seen and examined at the bedside. ABG showed mixed respiratory acidosis with metabolic alkalosis. Chest x-ray similar as compared to yesterday and patient is on minimal ventilator settings. Overnight had temperature in the normal range. norepinephrine requirement increased up to 9 microgram/minute. As we tried to decrease the sedation patient starts to have breath stacking following which sedation had to be increased. Patient 2 bowel movements yesterday. Objective vital signs Vital Sign Date Time Temp Pulse Resp B/P (MAP) Pulse Ox O2 Delivery O2 Flow Rate FiO2 03/18/25 16:27 90/63 03/18/25 16:15 99.3 99 20 94 210.7 03/18/25 16:00 40 03/18/25 16:00 Mechanical Ventilator+ Total Intake and Output 03/17/25 03/17/25 03/18/25 15:00 23:00 07:00 Intake Total 410.627 ml 745.514 ml 600 ml Balance 410.627 ml 745.514 ml 600 ml medications Current Medications Medications Dose Ordered Sig/Andra Route Start Time Stop Time Status Last Admin Dose Admin Fentanyl Citrate 250 ml @ 2.5 mls/hr Q24H IV 03/06/25 21:00 03/18/25 16:27 15 MLS/HR Midazolam HCl 50 ml @ 1 mls/hr Q24H IV 03/06/25 21:15 03/18/25 16:27 10 MLS/HR Albuterol 2.5 mg Q6HPRN PRN NEB 03/07/25 04:15 03/17/25 12:03 2.5 MG Levetiracetam 100 ml @ 400 mls/hr BID IV 03/07/25 10:00 03/18/25 09:14 400 MLS/HR Pantoprazole Sodium 40 mg DAILY IV 03/08/25 10:00 03/18/25 09:14 40 MG Enoxaparin Sodium 40 mg DAILY SC 03/08/25 10:00 03/18/25 09:15 40 MG Norepinephrine Bitartrate 250 ml @ 3.75 mls/hr Q24H IV 03/08/25 13:00 03/18/25 14:03 16.875 MLS/HR Finasteride 5 mg DAILY GT 03/09/25 10:00 03/18/25 09:14 5 MG Tamsulosin HCl 0.4 mg QPM PO 03/09/25 18:00 03/16/25 18:11 0.4 MG Enteral Nutritional Formula 1,000 ml 40ML/HR GT 03/09/25 15:15 03/17/25 17:30 1,000 ML Lactulose 30 ml BID PO 03/14/25 22:00 03/18/25 09:14 30 ML Sodium Chloride 10 ml QSHIFT@10,22 IV 03/14/25 22:00 03/18/25 09:14 10 ML Amino Acid Protein 30 ml DAILY GT 03/17/25 10:00 03/18/25 09:14 30 ML Piperacillin Sod/ Tazobactam Sod 100 ml @ 25 mls/hr Q8HR IV 03/18/25 14:00 03/18/25 14:00 25 MLS/HR Examination Patient is sedated and the mechanically ventilated with a RASS -4 Gen - no pallor, no icterus, no cyanosis, no clubbing, no LAD, bilateral 3+ pitting edema in the feet Skin - Patients skin is warm and dry. HEENT - normocephalic, atraumatic, moist mucous membranes. Neck - no LAD, no JVD Pulmonary - B/L equal breath sounds with mild rales on the right, no wheezing, no stridor. cardiovascular - regular S1,S2 heard, no added sounds, no murmurs heard. GI - soft abdomen. Bowel sounds normoactive Skeletal: Severely contracted lower extremities Neurological - sedated with a RASS-4 and on mechanical ventilation laboratory and microbiology Laboratory Tests 03/18/25 04:34 Test 03/18/25 04:34 Range/Units Serum Glucose 114 H 74-106 mg/dL Microbiology Date/Time Source Procedure Growth Status 03/07/25 12:10 Penis Gram Stain - Final Complete 03/07/25 12:10 Wound Culture - Final Escherichia coli Complete 03/06/25 19:55 Blood Blood Culture - Final NO GROWTH AFTER 5 DAYS OF INCUBATION. Complete 03/06/25 17:55 Sputum Gram Stain - Final Complete 03/06/25 17:55 Respiratory Culture - Final Escherichia coli Klebsiella oxytoca Complete Problem List/Assessment/Plan Problem List/Assessment/Plan Neurology: Acute metabolic encephalopathy likely due to breakthrough seizure Breakthrough seizures, possible secondary to septic shock Previous history of stroke - Head Ct showed No acute intracranial abnormality, Chronic sequelae of microvascular disease and atrophic cortical volume loss. - fentanyl and versed - RASS -4 - Keppra 500 mg IV Bid Cardiology: septic shock secondary to complicated UTI/ pneumonia Possible heart failure with mildly reduced ejection fraction, chronic - increasing requirements of levophed overnight - ECHO: very limited study- lvef >45%, cannot be more accurate, RV mild dysfunction - continued on meropenem Respiratory Acute on chronic hypercapnic respiratory failure COPD, possible exacerbation, improved Pneumonia d/t gram positive/negative bacteria - minimal ventilator settings - ABG reviewed, mixed resp acidosis with metabolic alkalosis - started on zosyn - CXR shows improvement of opacities after patient was started on Lasix 03/15 - d/lluvia lasix 0n 03/16 as patient was hypotensive Nephrology Septic shock due to complicated UTI Atrophic left kidney with mild left hydroureteronephrosis. pyelonephritis. Prostatomegaly chronic bladder outlet obstruction. 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, patient also pulled out previous suprapubic catheter urology was consulted: they recommend conservative management patient urinates spontaneously order for suprapubic catheter placement: but family refuses - culture from penile wound show growth of E.coli - on ceftriaxone - continue finasteride and tamsulosin Metabolic: possible Euthyroid sickness syndrome Lactic acidosis, resolved Hypernatremia, resolved Heme/onc Anemia normocytic hypochromic stable H&H Gastroenterology Constipation - lactulose bid - fleet enema - golytlely- small bowel movement on 03/17 DVT prophylaxis: enoxaparin PUD prophylaxis: protonix right PICC placed on 03/14 ETT 03/06 No galeas Goals of care discussed with daughter Danica and she was explained that it is day 10 assessed the patient is on mechanical ventilation and as per the guidelines patient should be extubated by day 14 prevent ventilator associated adverse effects including ventilator associated pneumonia. She was also explained that the patient will be difficult to extubate because of his underlying dementia and history of stroke as he is not able to follow commands and whenever sedation is decreased patient becomes apneic and starts to have breath stacking. Daughter was explained about the possibility of tracheostomy but she said " no trach and no PEG". On further asking about other options patient reported that she wants him to be full code and continue with mechanical ventilation and that if the patient is not able to be extubated she might consider making him comfort measures. Code status: Full code Critical care time spent excluding procedures 53 mins. Case discussed with Dr Khanna, as the patient has increasing requirements of norepinephrine, we increase the antibiotic coverage with the Zosyn. Continue close monitoring Plan discussed with: Daughter (Danica), Other (DANIKA Hilton) My Orders My Orders Orders - OPHELIA NUNEZ RESIDENT Procedure Category Date Status Time Chest Xray 1 View XY 03/18/25 Resulted 04:00 Abg W/ Co-Ox RT 03/18/25 Logged 04:00 Piperacillin-Tazob PHA 03/18/25 In Process 3.375gm (Zosyn 3.375g 14:00 Dietary Evaluation Review Comments: 1) TF Jevity 1.2Cal @ 50ml/hr x 24hr along with Pro-stat 1 pk daily (goal). Start @ 20ml/hr, increase 10ml/hr Q4H until goal is reached. TF @ goal volume provides 1540 kcal (100% energy needs), 81 gm protein (100% protein needs), 968 ml free water. 2) Water flush 150ml Q6H if allowed, adjust PRN 3) TPN if NPO > 7 days 4) Monitor NPO status, lab values, wt trend, I/O Expected Outcomes/Goals: Intake to meet at least 75% estimated needs Lab values to improve FU 2-3 days OPHELIA NUNEZ RESIDENT Mar 18, 2025 16:38
[2025-03-19] VITALS (107 sets, daily range): BP systolic 9–130; BP diastolic 39–82; PULSE 58–104; RESP 6–21; TEMP 94.5–99.3; O2SAT 86–100
[2025-03-19 05:28] LABS: Anion Gap 5 (5-15); Chloride 100 mmol/L (98-107); Potassium 4.4 mmol/L (3.5-5.1); Sodium 139 mmol/L (136-145)
[2025-03-19 05:29] LABS: Calcium 8.8 mg/dL (8.7-10.4)
[2025-03-19 05:31] LABS: Hemoglobin 10.9 g/dL (13.5-17.5); Nucleated Red Blood Cells % 0.0 %
[2025-03-19 05:34] LABS: BUN/Creatinine Ratio 14.3 (10.0-20.0); Blood Urea Nitrogen 11 mg/dL (9-23); Glucose 101 mg/dL (74-106)
[2025-03-19 05:36] LABS: Hematocrit 33.7 % (41.0-53.0); Mean Corpuscular Hemoglobin 27.3 pg (28.0-32.0); Mean Corpuscular Volume 84.3 fL (80.0-100.0)
[2025-03-19 05:37] LABS: Carbon Dioxide 34 mmol/L (20-31)
[2025-03-19 05:44] LABS: Base Excess 3.8 mmol/L (-2.0-3.0)
--- NOTE | 2025-03-19 05:50 | DVH ---
CHEST RADIOGRAPH Indication: on vent Technique: Single frontal view of the chest was obtained Comparison: XY CHEST XRAY 1 VIEW on DOS: 03/18/25, XY CHEST PORTABLE on DOS: 03/17/25, XY CHEST XRAY 1 V IEW on DOS: 03/17/25, XY CHEST XRAY 1 VIEW on DOS: 03/16/25, XY CHEST XRAY 1 VIEW on DOS: 03/15/25 FINDINGS: Lines and Tubes: Unchanged endotracheal tube, enteric tube, and right upper extremity PICC. Lungs: More conspicuous [id number]-left interstitial opacities. Persistent low lung volumes with bibasilar atelectasis. No new consolidation. Pleura: No evident pleural effusion or pneumothorax. Cardiomediastinal contours: Unchanged. Bones: Unchanged. IMPRESSION: 1. More conspicuous right interstitial opacities. No other significant change from the previous stud y. Stable support devices.
--- NOTE | 2025-03-19 11:08 | DVHPN2 ---
Subjective Intubated and sedated He has been intubated for 13 days Levophed drip Versed drip and fentanyl drip Reviewed: Care Plan, H&P, Labs, Medications, Previous Orders, Radiology Changes from previous H/P or p: Changes General: Per HPI Objective Vitals Vital Signs Date Time Temp Pulse Resp B/P (MAP) Pulse Ox O2 Delivery O2 Flow Rate FiO2 03/19/25 11:02 64 20 101/72 (82) 95 30 03/19/25 09:46 Mechanical Ventilator+ 03/19/25 09:45 97.2 207.0 Intake/Output Intake and Output 03/19/25 07:00 Intake Total 2433.601 ml Output Total 0 ml Balance 2433.601 ml Intake Oral 120 ml IV Total 1524.601 ml Tube Feeding 789 ml Output Stool Total 0 ml # Voids 13 General Appearance: Alert, Oriented X3, Cooperative HEENT: Atraumatic Cardiovascular: Regular rate, Normal S1, Normal S2 Neuro: Normal gait, Normal speech Medications Current Medications Medications Dose Ordered Sig/Andra Route Start Time Stop Time Status Last Admin Dose Admin Fentanyl Citrate 250 ml @ 2.5 mls/hr Q24H IV 03/06/25 21:00 03/19/25 05:23 30 MLS/HR Midazolam HCl 50 ml @ 1 mls/hr Q24H IV 03/06/25 21:15 03/19/25 07:00 14 MLS/HR Albuterol 2.5 mg Q6HPRN PRN NEB 03/07/25 04:15 03/19/25 03:54 2.5 MG Levetiracetam 100 ml @ 400 mls/hr BID IV 03/07/25 10:00 03/19/25 07:48 400 MLS/HR Pantoprazole Sodium 40 mg DAILY IV 03/08/25 10:00 03/19/25 07:48 40 MG Enoxaparin Sodium 40 mg DAILY SC 03/08/25 10:00 03/19/25 07:48 40 MG Norepinephrine Bitartrate 250 ml @ 3.75 mls/hr Q24H IV 03/08/25 13:00 03/19/25 03:07 14.063 MLS/HR Finasteride 5 mg DAILY GT 03/09/25 10:00 03/19/25 07:48 5 MG Tamsulosin HCl 0.4 mg QPM PO 03/09/25 18:00 03/18/25 17:32 0.4 MG Enteral Nutritional Formula 1,000 ml 40ML/HR GT 03/09/25 15:15 03/17/25 17:30 1,000 ML Lactulose 30 ml BID PO 03/14/25 22:00 03/19/25 07:48 30 ML Sodium Chloride 10 ml QSHIFT@10,22 IV 03/14/25 22:00 03/19/25 07:48 10 ML Amino Acid Protein 30 ml DAILY GT 03/17/25 10:00 03/19/25 09:00 30 ML Piperacillin Sod/ Tazobactam Sod 100 ml @ 25 mls/hr Q8HR IV 03/18/25 14:00 03/19/25 05:27 25 MLS/HR Laboratory Results Laboratory Tests 03/19/25 04:53 Chemistry Test 03/19/25 04:53 Calcium Level 8.8 mg/dL (8.7-10.4) Blood Gas Results Test 03/19/25 05:40 Arterial Blood pH 7.342 (7.350-7.450) FiO2 % 100.0 Microbiology Microbiology Date/Time Source Procedure Growth Status 03/07/25 12:10 Penis Gram Stain - Final Complete 03/07/25 12:10 Wound Culture - Final Escherichia coli Complete 03/06/25 19:55 Blood Blood Culture - Final NO GROWTH AFTER 5 DAYS OF INCUBATION. Complete 03/06/25 17:55 Sputum Gram Stain - Final Complete 03/06/25 17:55 Respiratory Culture - Final Escherichia coli Klebsiella oxytoca Complete Assessment/Plan Assessment/Plan Acute metabolic encephalopathy likely due to breakthrough seizure Septic shock secondary to complicated UTI/ pneumonia Possible heart failure with mildly reduced ejection fraction, chronic Acute on chronic hypercapnic respiratory failure COPD, possible exacerbation, improved Pneumonia d/t gram positive/negative bacteria Breakthrough seizures, possible secondary to septic shock Previous history of stroke Septic shock due to complicated UTI Atrophic left kidney with mild left hydroureteronephrosis. pyelonephritis. Prostatomegaly chronic bladder outlet obstruction. YARA due to VMN and chronic bladder outlet obstruction, resolving PLAN: Continue mechanical ventilation IV antibiotics: Zosyn Sedation with fentanyl and Versed Septic shock: Levophed drip Seizures: IV Keppra IV nutrition Full code The patient is still wants to treat aggressively for now to exhaust all possibilities of recovery Poor prognosis Plan discussed with: Other Date of Service: Mar 19, 2025 Billing Provider: ROXANA SAINZ MD Common Visit Codes: [id number] CARE 30-74 MIN ROXANA SAINZ MD Mar 19, 2025 11:08
--- NOTE | 2025-03-19 23:37 | DVHPN2 ---
Progress Note - Dictate Date Seen: Mar 19, 2025 Has the PT tested + for MRSA If YES, has PT been informed?: No Medical Necessity Reason Pt with a Central, PICC or Fol: Yes Subjective [facility] Patient seen and examined at bedside. Sedated, intubated on mechanical ventilator. Overnight events reviewed. vital signs Vital Sign Date Time Temp Pulse Resp B/P (MAP) Pulse Ox O2 Delivery O2 Flow Rate FiO2 03/19/25 22:23 73 20 91/61 (71) 93 30 03/19/25 22:00 Mechanical Ventilator+ 03/19/25 21:30 97.7 207.9 Total Intake and Output 03/18/25 03/18/25 03/19/25 15:00 23:00 07:00 Intake Total 484.376 ml 976.825 ml 972.4 ml Output Total 0 ml Balance 484.376 ml 976.825 ml 972.4 ml medications Current Medications Medications Dose Ordered Sig/Anrda Route Start Time Stop Time Status Last Admin Dose Admin Fentanyl Citrate 250 ml @ 2.5 mls/hr Q24H IV 03/06/25 21:00 03/19/25 18:16 12.5 MLS/HR Midazolam HCl 50 ml @ 1 mls/hr Q24H IV 03/06/25 21:15 03/19/25 20:32 10 MLS/HR Albuterol 2.5 mg Q6HPRN PRN NEB 03/07/25 04:15 03/19/25 18:32 2.5 MG Levetiracetam 100 ml @ 400 mls/hr BID IV 03/07/25 10:00 03/19/25 21:28 400 MLS/HR Pantoprazole Sodium 40 mg DAILY IV 03/08/25 10:00 03/19/25 07:48 40 MG Enoxaparin Sodium 40 mg DAILY SC 03/08/25 10:00 03/19/25 07:48 40 MG Norepinephrine Bitartrate 250 ml @ 3.75 mls/hr Q24H IV 03/08/25 13:00 03/19/25 18:15 15 MLS/HR Finasteride 5 mg DAILY GT 03/09/25 10:00 03/19/25 07:48 5 MG Tamsulosin HCl 0.4 mg QPM PO 03/09/25 18:00 03/19/25 17:11 0.4 MG Enteral Nutritional Formula 1,000 ml 40ML/HR GT 03/09/25 15:15 03/17/25 17:30 1,000 ML Lactulose 30 ml BID PO 03/14/25 22:00 03/19/25 21:28 30 ML Sodium Chloride 10 ml QSHIFT@10,22 IV 03/14/25 22:00 03/19/25 21:28 10 ML Amino Acid Protein 30 ml DAILY GT 03/17/25 10:00 03/19/25 09:00 30 ML Piperacillin Sod/ Tazobactam Sod 100 ml @ 25 mls/hr Q8HR IV 03/18/25 14:00 03/19/25 21:28 25 MLS/HR objective Gen.: Patient lying in bed in medical ICU. Sedated, intubated on mechanical ventilator. Head: Normocephalic, atraumatic. Eyes: PERRLA. Ears: Normal external anatomy. Throat: Endotracheal tube and orogastric tube in place. Neck: Supple, trachea midline. Chest: Transmitted breath sounds bilaterally. Decreased air entry bilaterally. No wheezing. Bibasilar crackles. Cardiovascular: Positive S1, positive S2. Regular rate and rhythm. Abdomen: Positive bowel sounds in all 4 quadrants. Soft, nontender, nondistended. : Abrams in place. Normal external genitalia. Rectal: Deferred. Skin: Warm, dry. Intact. Extremities: 2+ radial pulses bilaterally. No lower extremity edema. Neuro: Sedated, laboratory and microbiology Laboratory Tests 03/19/25 04:53 Test 03/19/25 04:53 Range/Units Serum Glucose 101 74-106 mg/dL Assessment/Plan Impression: Acute hypoxic respiratory failure On mechanical ventilator Septic shock Status epilepticus Parkinson's disease Dementia BPH Pneumonia Events: Remains on vent support On AC mode; RR 20, VT 450, PEEP 5, FiO2 30% Sedated on Versed, Fentanyl Continue antibiotics Antiepileptic with Keppra. On pressors for hemodynamic support Levophed 8 mcg/min Titrate to keep mean arterial pressure greater than 65 mmHg. Tube feeds for nutritional support Unable to taper sedation Will continue to attempt CPAP in AM CXR reviewed, more conspicuous right interstitial opacities. Devices in place. ABG reviewed, notable for acidemia Labs and imaging reviewed. Rest of plan as noted below. Plan: s/p intubation on mechanical ventilator. On AC mode; RR 20, VT 450, PEEP 5, FiO2 30% Titrate FIO2 to keep O2 saturation above 90%. VAP bundle. Daily ABG and CXR while intubated Sedated for vent synchrony Continue antibiotics. F/u cultures. On pressors for hemodynamic support Titrate to keep mean arterial pressure greater than 65 mmHg. Tube feeds for nutritional support Monitor renal function Monitor electrolytes. Supplement as necessary. Monitor ins and outs. Maintain euvolemia. SBT/SANG. GI prophylaxis. DVT prophylaxis. Prognosis: Poor given patient's multiple co-morbidities. Condition: Critical Rest of plan per hospitalist and other consultants. A total of 35 minutes of critical care time was spent reviewing the patient record, examining the patient, making a diagnostic and therapeutic plan, discussing this plan with the medical personnel, following up on diagnostic studies and following the patient for clinical stability excluding any and all procedures. At least 50% of this time was spent in direct, [id number] contact. Thank you Dr. Wei for allowing me to participate in this patient's care. Further recommendations will depend on the patient's clinical course. Please do not hesitate to contact me if you have any questions or concerns. This medical document was created using an electronic medical record system with Info computerized dictation system. Although these documentations are being carefully reviewed, there may still be some phonetic and typographical changes. The errors are purely typographical, due to imperfection on the software program, and do not reflect any compromise in the patient's medical care. Dietary Evaluation Review Comments: 1) TF Jevity 1.2Cal @ 50ml/hr x 24hr along with Pro-stat 1 pk daily (goal). Start @ 20ml/hr, increase 10ml/hr Q4H until goal is reached. TF @ goal volume provides 1540 kcal (100% energy needs), 81 gm protein (100% protein needs), 968 ml free water. 2) Water flush 150ml Q6H if allowed, adjust PRN 3) TPN if NPO > 7 days 4) Monitor NPO status, lab values, wt trend, I/O Expected Outcomes/Goals: Intake to meet at least 75% estimated needs Lab values to improve FU 2-3 days Plan discussed with: Other (IASÍAS Gibbs MD Mar 19, 2025 23:37
[2025-03-20] VITALS (106 sets, daily range): BP systolic 73–130; BP diastolic 20–85; PULSE 62–94; RESP 15–21; TEMP 83.5–99.9; O2SAT 88–99
[2025-03-20 04:20] LABS: Hemoglobin 10.0 g/dL (13.5-17.5)
[2025-03-20 04:24] LABS: Hematocrit 30.8 % (41.0-53.0); Mean Corpuscular Hemoglobin 27.0 pg (28.0-32.0); Mean Corpuscular Volume 83.4 fL (80.0-100.0); Nucleated Red Blood Cells % 0.0 %
[2025-03-20 04:32] LABS: Alanine Aminotransferase 33 U/L (7-40); Albumin 3.5 g/dL (3.2-4.8); Anion Gap 8 (5-15); BUN/Creatinine Ratio 13.0 (10.0-20.0); Blood Urea Nitrogen 9 mg/dL (9-23); Calcium 8.7 mg/dL (8.7-10.4); Carbon Dioxide 31 mmol/L (20-31); Chloride 101 mmol/L (98-107); Glucose 102 mg/dL (74-106); Magnesium 2.1 mg/dL (1.6-2.6); Potassium 4.4 mmol/L (3.5-5.1); Sodium 140 mmol/L (136-145); Total Protein 6.6 g/dL (5.7-8.2)
[2025-03-20 04:33] LABS: Bilirubin, Total 0.3 mg/dL (0.2-1.0)
[2025-03-20 04:56] LABS: Alkaline Phosphatase 132 U/L (46-116)
--- NOTE | 2025-03-20 05:15 | DVH ---
CHEST RADIOGRAPH Indication: VENTILATED Technique: Single frontal view of the chest was obtained Comparison: XY CHEST XRAY 1 VIEW on DOS: 03/19/25, XY CHEST XRAY 1 VIEW on DOS: 03/18/25, XY CHEST PORTAB LE on DOS: 03/17/25 IMPRESSION: Enteric tube, endotracheal tube, right PICC line appear unchanged in satisfactory position. Mild pulm onary vascular congestion and bibasilar atelectatic changes appear unchanged. No pneumothorax.
[2025-03-20 06:09] LABS: Base Excess 6.1 mmol/L (-2.0-3.0)
--- NOTE | 2025-03-20 10:52 | DVHPN2 ---
Subjective Intubated and sedated Levophed drip is still on Versed drip and fentanyl drip No change Reviewed: Care Plan, H&P, Labs, Medications, Previous Orders, Radiology Changes from previous H/P or p: Changes General: Per HPI Objective Vitals Vital Signs Date Time Temp Pulse Resp B/P (MAP) Pulse Ox O2 Delivery O2 Flow Rate FiO2 03/20/25 10:45 98.4 66 20 85/62 (70) 96 209.1 03/20/25 09:38 Mechanical Ventilator+ 30 30 Intake/Output Intake and Output 03/20/25 07:00 Intake Total 2894.258 ml Balance 2894.258 ml Intake Oral 250 ml IV Total 1954.258 ml Tube Feeding 690 ml # Voids 11 General Appearance: Other (Intubated and sedated) HEENT: Atraumatic Cardiovascular: Regular rate, Normal S1, Normal S2 Medications Current Medications Medications Dose Ordered Sig/Andra Route Start Time Stop Time Status Last Admin Dose Admin Fentanyl Citrate 250 ml @ 2.5 mls/hr Q24H IV 03/06/25 21:00 03/19/25 18:16 12.5 MLS/HR Midazolam HCl 50 ml @ 1 mls/hr Q24H IV 03/06/25 21:15 03/20/25 10:40 10 MLS/HR Albuterol 2.5 mg Q6HPRN PRN NEB 03/07/25 04:15 03/20/25 00:12 2.5 MG Levetiracetam 100 ml @ 400 mls/hr BID IV 03/07/25 10:00 03/20/25 07:36 400 MLS/HR Pantoprazole Sodium 40 mg DAILY IV 03/08/25 10:00 03/20/25 07:36 40 MG Enoxaparin Sodium 40 mg DAILY SC 03/08/25 10:00 03/20/25 07:37 40 MG Norepinephrine Bitartrate 250 ml @ 3.75 mls/hr Q24H IV 03/08/25 13:00 03/19/25 18:15 15 MLS/HR Finasteride 5 mg DAILY GT 03/09/25 10:00 03/20/25 07:36 5 MG Tamsulosin HCl 0.4 mg QPM PO 03/09/25 18:00 03/19/25 17:11 0.4 MG Enteral Nutritional Formula 1,000 ml 40ML/HR GT 03/09/25 15:15 03/20/25 03:06 1,000 ML Lactulose 30 ml BID PO 03/14/25 22:00 03/20/25 07:36 30 ML Sodium Chloride 10 ml QSHIFT@10,22 IV 03/14/25 22:00 03/20/25 07:36 10 ML Amino Acid Protein 30 ml DAILY GT 03/17/25 10:00 03/20/25 07:36 30 ML Piperacillin Sod/ Tazobactam Sod 100 ml @ 25 mls/hr Q8HR IV 03/18/25 14:00 03/20/25 05:42 25 MLS/HR Laboratory Results Laboratory Tests 03/20/25 03:38 Chemistry Test 03/20/25 03:38 Albumin 3.5 g/dL (3.2-4.8) Calcium Level 8.7 mg/dL (8.7-10.4) Magnesium Level 2.1 mg/dL (1.6-2.6) Total Protein 6.6 g/dL (5.7-8.2) LFT Test 03/20/25 03:38 Alanine Aminotransferase (ALT) 33 U/L (7-40) Alkaline Phosphatase 132 U/L (46-116) H Aspartate Amino Transferase (AST) 40 U/L (13-40) Total Bilirubin 0.3 mg/dL (0.2-1.0) Blood Gas Results Test 03/20/25 06:04 Arterial Blood pH 7.548 (7.350-7.450) FiO2 % 30.0 Microbiology Microbiology Date/Time Source Procedure Growth Status 03/07/25 12:10 Penis Gram Stain - Final Complete 03/07/25 12:10 Wound Culture - Final Escherichia coli Complete 03/06/25 19:55 Blood Blood Culture - Final NO GROWTH AFTER 5 DAYS OF INCUBATION. Complete 03/06/25 17:55 Sputum Gram Stain - Final Complete 03/06/25 17:55 Respiratory Culture - Final Escherichia coli Klebsiella oxytoca Complete Assessment/Plan Assessment/Plan Acute metabolic encephalopathy likely due to breakthrough seizure Septic shock secondary to complicated UTI/ pneumonia Possible heart failure with mildly reduced ejection fraction, chronic Acute on chronic hypercapnic respiratory failure COPD, possible exacerbation, improved Pneumonia d/t gram positive/negative bacteria Breakthrough seizures, possible secondary to septic shock Previous history of stroke Septic shock due to complicated UTI Atrophic left kidney with mild left hydroureteronephrosis. pyelonephritis. Prostatomegaly chronic bladder outlet obstruction. YARA due to VMN and chronic bladder outlet obstruction, resolving PLAN: Continue mechanical ventilation IV antibiotics: Zosyn Sedation with fentanyl and Versed Septic shock: Levophed drip Seizures: IV Keppra IV nutrition Full code The patient is still wants to treat aggressively for now to exhaust all possibilities of recovery Poor prognosis 03/20/2025: Continue IV antibiotics Sedation as needed Intubated and sedated Still on Levophed drip continue as needed Pulmonary Medicine is on board Plan discussed with: Other Date of Service: Mar 20, 2025 Billing Provider: ROXANA SAINZ MD Common Visit Codes: [id number] INP/OBS CARE(HIGH) ROXANA SAINZ MD Mar 20, 2025 10:52
--- NOTE | 2025-03-20 23:33 | DVHPN2 ---
Progress Note - Dictate Date Seen: Mar 20, 2025 Has the PT tested + for MRSA If YES, has PT been informed?: No Medical Necessity Reason Pt with a Central, PICC or Fol: Yes Subjective [facility] Patient seen and examined at bedside. Sedated, intubated on mechanical ventilator. Overnight events reviewed. vital signs Vital Sign Date Time Temp Pulse Resp B/P (MAP) Pulse Ox O2 Delivery O2 Flow Rate FiO2 03/20/25 23:18 82/54 03/20/25 23:00 98.4 66 20 94 209.1 03/20/25 22:00 30 03/20/25 22:00 Mechanical Ventilator+ Total Intake and Output 03/19/25 03/19/25 03/20/25 15:00 23:00 07:00 Intake Total 805.376 ml 1088.000 ml 1000.882 ml Balance 805.376 ml 1088.000 ml 1000.882 ml medications Current Medications Medications Dose Ordered Sig/Andra Route Start Time Stop Time Status Last Admin Dose Admin Fentanyl Citrate 250 ml @ 2.5 mls/hr Q24H IV 03/06/25 21:00 03/20/25 14:52 12.5 MLS/HR Midazolam HCl 50 ml @ 1 mls/hr Q24H IV 03/06/25 21:15 03/20/25 21:30 10 MLS/HR Albuterol 2.5 mg Q6HPRN PRN NEB 03/07/25 04:15 03/20/25 17:59 2.5 MG Levetiracetam 100 ml @ 400 mls/hr BID IV 03/07/25 10:00 03/20/25 21:30 400 MLS/HR Pantoprazole Sodium 40 mg DAILY IV 03/08/25 10:00 03/20/25 07:36 40 MG Enoxaparin Sodium 40 mg DAILY SC 03/08/25 10:00 03/20/25 07:37 40 MG Norepinephrine Bitartrate 250 ml @ 3.75 mls/hr Q24H IV 03/08/25 13:00 03/19/25 18:15 15 MLS/HR Finasteride 5 mg DAILY GT 03/09/25 10:00 03/20/25 07:36 5 MG Tamsulosin HCl 0.4 mg QPM PO 03/09/25 18:00 03/20/25 17:21 0.4 MG Enteral Nutritional Formula 1,000 ml 40ML/HR GT 03/09/25 15:15 03/20/25 03:06 1,000 ML Lactulose 30 ml BID PO 03/14/25 22:00 03/20/25 21:30 30 ML Sodium Chloride 10 ml QSHIFT@10,22 IV 03/14/25 22:00 03/20/25 21:30 10 ML Amino Acid Protein 30 ml DAILY GT 03/17/25 10:00 03/20/25 07:36 30 ML Piperacillin Sod/ Tazobactam Sod 100 ml @ 25 mls/hr Q8HR IV 03/18/25 14:00 03/20/25 21:30 25 MLS/HR objective Gen.: Patient lying in bed in medical ICU. Sedated, intubated on mechanical ventilator. Head: Normocephalic, atraumatic. Eyes: PERRLA. Ears: Normal external anatomy. Throat: Endotracheal tube and orogastric tube in place. Neck: Supple, trachea midline. Chest: Transmitted breath sounds bilaterally. Decreased air entry bilaterally. No wheezing. Bibasilar crackles. Cardiovascular: Positive S1, positive S2. Regular rate and rhythm. Abdomen: Positive bowel sounds in all 4 quadrants. Soft, nontender, nondistended. : Abrams in place. Normal external genitalia. Rectal: Deferred. Skin: Warm, dry. Intact. Extremities: 2+ radial pulses bilaterally. No lower extremity edema. Neuro: Sedated, laboratory and microbiology Laboratory Tests 03/20/25 03:38 Test 03/20/25 03:38 Range/Units Serum Glucose 102 74-106 mg/dL Assessment/Plan Impression: Acute hypoxic respiratory failure On mechanical ventilator Septic shock Status epilepticus Parkinson's disease Dementia BPH Pneumonia Events: Remains on vent support On AC mode; RR 20, VT 450, PEEP 5, FiO2 30% Sedated on Versed On Fentanyl drip 125 mcg/min Continue antibiotics Antiepileptic with Keppra. On pressors for hemodynamic support Levophed 8.5 mcg/min Titrate to keep mean arterial pressure greater than 65 mmHg. Tube feeds for nutritional support CXR reviewed, ET tube adjusted. ABG reviewed, notable for alkalemia Taper sedation as tolerated SBT/SANG. Labs and imaging reviewed. Rest of plan as noted below. Plan: s/p intubation on mechanical ventilator. On AC mode; RR 20, VT 450, PEEP 5, FiO2 30% Titrate FIO2 to keep O2 saturation above 90%. VAP bundle. Daily ABG and CXR while intubated Sedated for vent synchrony Continue antibiotics. F/u cultures. On pressors for hemodynamic support Titrate to keep mean arterial pressure greater than 65 mmHg. Tube feeds for nutritional support Monitor renal function Monitor electrolytes. Supplement as necessary. Monitor ins and outs. Maintain euvolemia. SBT/SANG. GI prophylaxis. DVT prophylaxis. Prognosis: Poor given patient's multiple co-morbidities. Condition: Critical Rest of plan per hospitalist and other consultants. A total of 35 minutes of critical care time was spent reviewing the patient record, examining the patient, making a diagnostic and therapeutic plan, discussing this plan with the medical personnel, following up on diagnostic studies and following the patient for clinical stability excluding any and all procedures. At least 50% of this time was spent in direct, [id number] contact. Thank you Dr. Wei for allowing me to participate in this patient's care. Further recommendations will depend on the patient's clinical course. Please do not hesitate to contact me if you have any questions or concerns. This medical document was created using an electronic medical record system with [employer] computerized dictation system. Although these documentations are being carefully reviewed, there may still be some phonetic and typographical changes. The errors are purely typographical, due to imperfection on the software program, and do not reflect any compromise in the patient's medical care. Dietary Evaluation Review Comments: 1) TF Jevity 1.2Cal @ 50ml/hr x 24hr along with Pro-stat 1 pk daily (goal). Start @ 20ml/hr, increase 10ml/hr Q4H until goal is reached. TF @ goal volume provides 1540 kcal (100% energy needs), 81 gm protein (100% protein needs), 968 ml free water. 2) Water flush 150ml Q6H if allowed, adjust PRN 3) TPN if NPO > 7 days 4) Monitor NPO status, lab values, wt trend, I/O Expected Outcomes/Goals: Intake to meet at least 75% estimated needs Lab values to improve FU 2-3 days Plan discussed with: Other (DANIKA Jean Baptiste) Critical Care Time(min): 35 ISAÍAS TORRES MD Mar 20, 2025 23:32
[2025-03-21] VITALS (108 sets, daily range): BP systolic 73–156; BP diastolic 47–99; PULSE 58–108; RESP 10–25; TEMP 49.1; O2SAT 87–100
--- NOTE | 2025-03-21 05:41 | DVH ---
CHEST RADIOGRAPH Indication: VENTILATED Technique: Single frontal view of the chest was obtained Comparison: XY CHEST PORTABLE on DOS: 03/20/25 FINDINGS: Lines and Tubes: The endotracheal tube terminates 5.3 cm above the silas. Right PICC terminates in the superior vena cava. The enteric tube courses below the left hemidiaphragm and the tip extends out side the field of view. There is a device overlying the left chest. Lungs: Bibasilar airspace disease similar to prior study. Pleura: No effusion. No pneumothorax. Cardiomediastinal contours: Stable cardiovascular silhouette. Bones: No acute osseous abnormality. IMPRESSION: 1. Bibasilar airspace disease which may reflect atelectasis or pneumonia.
[2025-03-21 06:07] LABS: Hematocrit 33.4 % (41.0-53.0); Hemoglobin 10.5 g/dL (13.5-17.5); Mean Corpuscular Hemoglobin 26.7 pg (28.0-32.0); Mean Corpuscular Volume 84.6 fL (80.0-100.0); Nucleated Red Blood Cells % 0.1 %
[2025-03-21 06:18] LABS: Alanine Aminotransferase 33 U/L (7-40); Albumin 3.8 g/dL (3.2-4.8); Anion Gap 6 (5-15); BUN/Creatinine Ratio 15.5 (10.0-20.0); Blood Urea Nitrogen 11 mg/dL (9-23); Calcium 9.0 mg/dL (8.7-10.4); Carbon Dioxide 30 mmol/L (20-31); Chloride 102 mmol/L (98-107); Potassium 4.9 mmol/L (3.5-5.1); Sodium 138 mmol/L (136-145); Total Protein 7.1 g/dL (5.7-8.2)
[2025-03-21 06:21] LABS: Alkaline Phosphatase 151 U/L (46-116); Bilirubin, Total 0.3 mg/dL (0.2-1.0); Glucose 108 mg/dL (74-106)
[2025-03-21 07:56] LABS: Base Excess 3.2 mmol/L (-2.0-3.0)
--- NOTE | 2025-03-21 20:20 | DVHPNRES ---
Progress Note Date Seen: Mar 21, 2025 Resident Creating Document: OPHELIA NUNEZ RESIDENT Has the PT tested + for MRSA If YES, has PT been informed?: No Medical Necessity Reason Pt with a Central, PICC or Fol: Yes Subjective Review of Systems 03/21 patient seen and examined at the bedside. ABG showed mixed respiratory acidosis with metabolic alkalosis. Chest x-ray showed bibasilar airspace disease, increased FiO2 at 50%. Over the weekend patient remained mostly afebrile and had a few readings up to 99.9 degree F. norepinephrine requirement increased up to 12 microgram/minute. As we tried to decrease the sedation patient starts to have breath stacking following which sedation had to be increased. Objective vital signs Vital Sign Date Time Temp Pulse Resp B/P (MAP) Pulse Ox O2 Delivery O2 Flow Rate FiO2 03/21/25 20:04 80 20 147/89 (108) 93 30 03/21/25 20:00 98.9 98.9 03/21/25 18:58 Mechanical Ventilator Total Intake and Output 03/20/25 03/20/25 03/21/25 15:00 23:00 07:00 Intake Total 757.504 ml 1300.004 ml 1088.438 ml Balance 757.504 ml 1300.004 ml 1088.438 ml medications Current Medications Medications Dose Ordered Sig/Andra Route Start Time Stop Time Status Last Admin Dose Admin Fentanyl Citrate 250 ml @ 2.5 mls/hr Q24H IV 03/06/25 21:00 03/21/25 18:25 20 MLS/HR Midazolam HCl 50 ml @ 1 mls/hr Q24H IV 03/06/25 21:15 03/21/25 18:24 12 MLS/HR Albuterol 2.5 mg Q6HPRN PRN NEB 03/07/25 04:15 03/21/25 18:57 2.5 MG Levetiracetam 100 ml @ 400 mls/hr BID IV 03/07/25 10:00 03/21/25 10:03 400 MLS/HR Pantoprazole Sodium 40 mg DAILY IV 03/08/25 10:00 03/21/25 10:03 40 MG Enoxaparin Sodium 40 mg DAILY SC 03/08/25 10:00 03/21/25 10:03 40 MG Norepinephrine Bitartrate 250 ml @ 3.75 mls/hr Q24H IV 03/08/25 13:00 03/21/25 00:50 17.813 MLS/HR Finasteride 5 mg DAILY GT 03/09/25 10:00 03/21/25 10:04 5 MG Tamsulosin HCl 0.4 mg QPM PO 03/09/25 18:00 03/21/25 17:59 0.4 MG Enteral Nutritional Formula 1,000 ml 40ML/HR GT 03/09/25 15:15 03/21/25 00:57 1,000 ML Lactulose 30 ml BID PO 03/14/25 22:00 03/21/25 10:03 30 ML Sodium Chloride 10 ml QSHIFT@10,22 IV 03/14/25 22:00 03/21/25 10:03 10 ML Amino Acid Protein 30 ml DAILY GT 03/17/25 10:00 03/20/25 07:36 30 ML Piperacillin Sod/ Tazobactam Sod 100 ml @ 25 mls/hr Q8HR IV 03/18/25 14:00 03/21/25 14:02 25 MLS/HR Examination Patient is sedated and the mechanically ventilated with a RASS -4 Gen - no pallor, no icterus, no cyanosis, no clubbing, no LAD, bilateral 2+ pitting edema in the feet Skin - Patients skin is warm and dry. HEENT - normocephalic, atraumatic, moist mucous membranes. Neck - no LAD, no JVD Pulmonary - B/L decreased breath sounds with mild rales, no wheezing, no stridor. cardiovascular - regular S1,S2 heard, no added sounds, no murmurs heard. GI - soft abdomen. Bowel sounds normoactive Skeletal: Severely contracted lower extremities Neurological - sedated with a RASS-4 and on mechanical ventilation laboratory and microbiology Laboratory Tests 03/21/25 05:40 Test 03/21/25 05:40 Range/Units Serum Glucose 108 H 74-106 mg/dL Microbiology Date/Time Source Procedure Growth Status 03/07/25 12:10 Penis Gram Stain - Final Complete 03/07/25 12:10 Wound Culture - Final Escherichia coli Complete 03/06/25 19:55 Blood Blood Culture - Final NO GROWTH AFTER 5 DAYS OF INCUBATION. Complete 03/06/25 17:55 Sputum Gram Stain - Final Complete 03/06/25 17:55 Respiratory Culture - Final Escherichia coli Klebsiella oxytoca Complete Problem List/Assessment/Plan Problem List/Assessment/Plan Neurology: Acute metabolic encephalopathy likely due to breakthrough seizure Breakthrough seizures, possible secondary to septic shock Previous history of stroke - Head Ct showed No acute intracranial abnormality, Chronic sequelae of microvascular disease and atrophic cortical volume loss. - fentanyl and versed, as he tried to wean off the sedation patient because apneic and holds his breath and does not follow command following which the sedation had to be increased. - RASS -4 - Keppra 500 mg IV Bid Cardiology: septic shock secondary to complicated UTI/ pneumonia Possible heart failure with mildly reduced ejection fraction, chronic - increasing requirements of levophed overnight - ECHO: very limited study- lvef >45%, cannot be more accurate, RV mild dysfunction - continued on meropenem Respiratory Acute on chronic hypercapnic respiratory failure COPD, possible exacerbation, improved Pneumonia d/t gram positive/negative bacteria - minimal ventilator settings - ABG reviewed, respiratory acidosis without metabolic compensation - on Zosyn - CXR shows bibasilar airspace disease Nephrology Septic shock due to complicated UTI Atrophic left kidney with mild left hydroureteronephrosis. pyelonephritis. Prostatomegaly chronic bladder outlet obstruction. 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, patient also pulled out previous suprapubic catheter urology was consulted: they recommend conservative management patient urinates spontaneously order for suprapubic catheter placement: but family refuses - culture from penile wound show growth of E.coli - on Zosyn - continue finasteride and tamsulosin Metabolic: possible Euthyroid sickness syndrome Lactic acidosis, resolved Hypernatremia, resolved Heme/onc Anemia normocytic hypochromic stable H&H Gastroenterology Constipation - lactulose bid - fleet enema - golytlely X 1- small bowel movement on 03/17 DVT prophylaxis: enoxaparin PUD prophylaxis: protonix right PICC placed on 03/14 ETT 03/06 No galeas Goals of care discussed with daughter Danica and she was explained that it is day 10 assessed the patient is on mechanical ventilation and as per the guidelines patient should be extubated by day 14 prevent ventilator associated adverse effects including ventilator associated pneumonia. She was also explained that the patient will be difficult to extubate because of his underlying dementia and history of stroke as he is not able to follow commands and whenever sedation is decreased patient becomes apneic and starts to have breath stacking. Daughter was explained about the possibility of tracheostomy but she said " no trach and no PEG". On further asking about other options patient reported that she wants him to be full code and continue with mechanical ventilation and that if the patient is not able to be extubated she might consider making him comfort measures. Code status: Full code Critical care time spent excluding procedures 61 mins. Case discussed with Dr Chapin Plan discussed with: Daughter, Other (RN Irina) My Orders My Orders Orders - OPHLEIA NUNEZ Procedure Category Date Status Time Abg W/ Co-Ox RT 03/21/25 Logged 07:00 Communication Order ORDERS 03/21/25 Transmitted 11:52 Basic Metabolic Panel LAB 03/22/25 Verified 04:00 Complete Blood Count LAB 03/22/25 Verified 04:00 Abg W/ Co-Ox RT 03/22/25 Logged 04:00 Dietary Evaluation Review Comments: 1) TF Jevity 1.2Cal @ 50ml/hr x 24hr along with Pro-stat 1 pk daily (goal). Start @ 20ml/hr, increase 10ml/hr Q4H until goal is reached. TF @ goal volume provides 1540 kcal (100% energy needs), 81 gm protein (100% protein needs), 968 ml free water. 2) Water flush 150ml Q6H if allowed, adjust PRN 3) TPN if NPO > 7 days 4) Monitor NPO status, lab values, wt trend, I/O Expected Outcomes/Goals: Intake to meet at least 75% estimated needs Lab values to improve FU 2-3 days Date of Service: Mar 21, 2025 Billing Provider: ADDISON CHAPIN MD Common Visit Codes: [id number] CARE 30-74 MIN OPHELIA NUNEZ RESIDENT Mar 21, 2025 20:20 ADDISON CHAPIN MD Mar 22, 2025 16:10
[2025-03-22] VITALS (108 sets, daily range): BP systolic 81–147; BP diastolic 53–99; PULSE 57–102; RESP 14–22; TEMP 97.3–99.4; O2SAT 88–100
--- NOTE | 2025-03-22 05:04 | DVH ---
CHEST RADIOGRAPH Indication: on vent Technique: Single frontal view of the chest was obtained COMPARISON: XY CHEST PORTABLE on DOS: 03/21/25, XY CHEST PORTABLE on DOS: 03/20/25, XY CHEST XRAY 1 VIEW on DOS: 03/19/25, XY CHEST XRAY 1 VIEW on DOS: 03/18/25, XY CHEST PORTABLE on DOS: 03/17/25 FINDINGS: Lines and Tubes: Slight interval retraction of the endotracheal tube such that the tip now projects a pproximately 6.2 cm above the level of the silas. Remaining lines and tubes unchanged. Lungs: Stable appearing mild diffuse increased prominence of the pulmonary vasculature and bibasilar atelectasis. Pleura: No effusion. No pneumothorax. Cardiomediastinal contours: Unremarkable Bones: Unremarkable IMPRESSION: 1. Stable appearing mild diffuse increased prominence of the pulmonary vasculature and bibasilar atel ectasis. 2. Slight interval retraction of endotracheal tube as above with remaining lines and tubes unchanged.
[2025-03-22 05:05] LABS: Hematocrit 30.0 % (41.0-53.0); Hemoglobin 9.7 g/dL (13.5-17.5); Mean Corpuscular Hemoglobin 27.0 pg (28.0-32.0); Mean Corpuscular Volume 83.6 fL (80.0-100.0); Nucleated Red Blood Cells % 0.0 %
[2025-03-22 05:16] LABS: Anion Gap 7 (5-15); Carbon Dioxide 30 mmol/L (20-31); Chloride 104 mmol/L (98-107); Potassium 4.2 mmol/L (3.5-5.1); Sodium 141 mmol/L (136-145)
[2025-03-22 05:18] LABS: Calcium 8.8 mg/dL (8.7-10.4)
[2025-03-22 05:22] LABS: BUN/Creatinine Ratio 16.4 (10.0-20.0); Blood Urea Nitrogen 10 mg/dL (9-23)
[2025-03-22 05:23] LABS: Glucose 165 mg/dL (74-106)
[2025-03-22 06:50] LABS: Base Excess 3.5 mmol/L (-2.0-3.0)
--- NOTE | 2025-03-22 17:37 | DVH ---
LEFT Upper Extremity Venous Duplex Clinical History: SWELLING Comparison: None Technique: Duplex Doppler evaluation of the venous system of the LEFT lower neck and upper extremity including c olor Doppler and spectral/pulsed waveform analysis was performed. Findings: The internal jugular vein demonstrates appropriate compressibility and waveform variability. The subclavian vein is patent on color Doppler evaluation without intraluminal thrombus and demonstra angel luis waveform variability. The visualized portion of the brachiocephalic vein is patent on color Doppler evaluation without intr aluminal thrombus and demonstrates waveform variability. The axillary vein demonstrates appropriate compressibility and waveform variability. The brachial veins demonstrate appropriate compressibility and patency on Doppler evaluation. The basilic vein demonstrates appropriate compressibility and patency on Doppler evaluation. The cephalic vein demonstrates appropriate compressibility and patency on Doppler evaluation. Impression: 1. No venous thrombus identified in the LEFT upper extremity vessels evaluated above. 2. If clinical concern/symptoms persist or worsen, short-interval follow-up study is suggested.
--- NOTE | 2025-03-22 20:26 | DVHPNRES ---
Progress Note Date Seen: Mar 22, 2025 Resident Creating Document: MAUREEN NUNEZALLI RESIDENT Has the PT tested + for MRSA If YES, has PT been informed?: No Medical Necessity Reason Pt with a Central, PICC or Fol: Yes Subjective Review of Systems 03/22 patient seen and examined at the bedside. Patient did not have any fever overnight, heart rate and respiratory rate within normal limits, increased vasopressor requirement up to 12 mcg/min of norepinephrine. ABG showed mixed respiratory and metabolic acidosis. Chest x-ray showed bibasilar airspace disease. Patient is currently RASS -5. We will try to wean off the sedation. Left upper extremity was swollen following which venous Doppler was done showed no thrombus in the upper extremity veins. Objective vital signs Vital Sign Date Time Temp Pulse Resp B/P (MAP) Pulse Ox O2 Delivery O2 Flow Rate FiO2 03/22/25 19:55 77 20 111/72 (85) 98 60 03/22/25 18:42 Mechanical Ventilator+ 03/22/25 16:00 98.2 98.2 Total Intake and Output 03/21/25 03/21/25 03/22/25 15:00 23:00 07:00 Intake Total 1020.000 ml 1005.127 ml 869.834 ml Balance 1020.000 ml 1005.127 ml 869.834 ml medications Current Medications Medications Dose Ordered Sig/Andra Route Start Time Stop Time Status Last Admin Dose Admin Fentanyl Citrate 250 ml @ 2.5 mls/hr Q24H IV 03/06/25 21:00 03/22/25 19:43 20 MLS/HR Midazolam HCl 50 ml @ 1 mls/hr Q24H IV 03/06/25 21:15 03/22/25 10:02 12 MLS/HR Albuterol 2.5 mg Q6HPRN PRN NEB 03/07/25 04:15 03/22/25 18:41 2.5 MG Levetiracetam 100 ml @ 400 mls/hr BID IV 03/07/25 10:00 03/22/25 09:59 400 MLS/HR Pantoprazole Sodium 40 mg DAILY IV 03/08/25 10:00 03/22/25 09:57 40 MG Enoxaparin Sodium 40 mg DAILY SC 03/08/25 10:00 03/22/25 09:56 40 MG Norepinephrine Bitartrate 250 ml @ 3.75 mls/hr Q24H IV 03/08/25 13:00 03/22/25 10:01 22.5 MLS/HR Finasteride 5 mg DAILY GT 03/09/25 10:00 03/22/25 09:57 5 MG Tamsulosin HCl 0.4 mg QPM PO 03/09/25 18:00 03/22/25 18:57 0.4 MG Enteral Nutritional Formula 1,000 ml 40ML/HR GT 03/09/25 15:15 03/21/25 00:57 1,000 ML Lactulose 30 ml BID PO 03/14/25 22:00 03/22/25 09:56 30 ML Sodium Chloride 10 ml QSHIFT@10,22 IV 03/14/25 22:00 03/22/25 09:59 10 ML Amino Acid Protein 30 ml DAILY GT 03/17/25 10:00 03/22/25 09:58 30 ML Piperacillin Sod/ Tazobactam Sod 100 ml @ 25 mls/hr Q8HR IV 03/18/25 14:00 03/22/25 15:52 25 MLS/HR Examination Patient is sedated and mechanically ventilated with a RASS -5 Gen - no pallor, no icterus, no cyanosis, no clubbing, no LAD, bilateral 2+ pitting edema in the lower extremities up to the knees Skin - Patients skin is warm and dry. HEENT - normocephalic, atraumatic, moist mucous membranes. Neck - no LAD, no JVD Pulmonary - B/L decreased breath sounds with mild rales, no wheezing, no stridor. cardiovascular - regular S1,S2 heard, no added sounds, no murmurs heard. GI - soft abdomen. Bowel sounds normoactive Skeletal: Severely contracted lower extremities laboratory and microbiology Laboratory Tests 03/22/25 04:28 Test 03/22/25 04:28 Range/Units Serum Glucose 165 H 74-106 mg/dL Microbiology Date/Time Source Procedure Growth Status 03/07/25 12:10 Penis Gram Stain - Final Complete 03/07/25 12:10 Wound Culture - Final Escherichia coli Complete 03/06/25 19:55 Blood Blood Culture - Final NO GROWTH AFTER 5 DAYS OF INCUBATION. Complete 03/06/25 17:55 Sputum Gram Stain - Final Complete 03/06/25 17:55 Respiratory Culture - Final Escherichia coli Klebsiella oxytoca Complete Problem List/Assessment/Plan Problem List/Assessment/Plan Neurology: Acute metabolic encephalopathy likely due to breakthrough seizure Breakthrough seizures, possible secondary to septic shock Previous history of stroke - Head Ct showed No acute intracranial abnormality, Chronic sequelae of microvascular disease and atrophic cortical volume loss. - on fentanyl and versed, patient will try to be weaned off sedation - RASS -5 - Keppra 500 mg IV Bid Cardiology: septic shock secondary to complicated UTI/ pneumonia Possible heart failure with mildly reduced ejection fraction, chronic - Levophed increased up to 12 microgram/minute - ECHO: very limited study- lvef >45%, cannot be more accurate, RV mild dysfunction - on Zosyn Respiratory Acute on chronic hypercapnic respiratory failure COPD, possible exacerbation, improved Pneumonia d/t gram positive/negative bacteria - minimal ventilator settings - ABG reviewed, mixed respiratory and metabolic acidosis - on Zosyn - CXR shows bibasilar airspace disease, no acute worsening Nephrology Septic shock due to complicated UTI Atrophic left kidney with mild left hydroureteronephrosis. pyelonephritis. Prostatomegaly chronic bladder outlet obstruction. 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, patient also pulled out previous suprapubic catheter urology was consulted: they recommend conservative management patient urinates spontaneously order for suprapubic catheter placement: but family refuses - culture from penile wound show growth of E.coli - on Zosyn - continue finasteride and tamsulosin Metabolic: possible Euthyroid sickness syndrome Lactic acidosis, resolved Hypernatremia, resolved Heme/onc Anemia normocytic hypochromic stable H&H Gastroenterology Constipation - lactulose bid - fleet enema - golytlely X 1- small bowel movement on 03/17 DVT prophylaxis: enoxaparin PUD prophylaxis: protonix right PICC placed on 03/14 ETT 03/06 No galeas Goals of care discussed with daughter Danica and her friend at bedside. She was explained about the increasing vasopressor requirements and that he has been difficult to wean off sedation. She was also explained about the poor prognosis and that if the patient is not able to be weaned off the sedation and mechanical ventilation, tracheostomy should be done which the daughter did not want in any case. She was explained about the other option of terminal weaning and comfort measures given his poor prognosis. The daughter understood and wanted to discuss it with family and will make a decision in the next 24-48 hours. Code status: Full code Critical care time spent excluding procedures and long dw family was 83 mins. Case discussed with Dr Chapin Plan discussed with: Daughter (danica), Other (DANIKA Leon) My Orders My Orders Orders - OPHELIA NUNEZ RESIDENT Procedure Category Date Status Time Ventilator Orders RT 03/22/25 Transmitted 05:31 Lt Upper Dvt US 03/22/25 Resulted 12:02 Basic Metabolic Panel LAB 03/23/25 Verified 04:00 Complete Blood Count LAB 03/23/25 Verified 04:00 Chest Xray 1 View XY 03/23/25 Logged 04:00 Abg W/ Co-Ox RT 03/23/25 Logged 04:00 Dietary Evaluation Review Comments: 1) TF Jevity 1.2Cal @ 50ml/hr x 24hr along with Pro-stat 1 pk daily (goal). Start @ 20ml/hr, increase 10ml/hr Q4H until goal is reached. TF @ goal volume provides 1540 kcal (100% energy needs), 81 gm protein (100% protein needs), 968 ml free water. 2) Water flush 150ml Q6H if allowed, adjust PRN 3) TPN if NPO > 7 days 4) Monitor NPO status, lab values, wt trend, I/O Expected Outcomes/Goals: Intake to meet at least 75% estimated needs Lab values to improve FU 2-3 days Date of Service: Mar 22, 2025 Billing Provider: ADDISON CHAPIN MD Common Visit Codes: [id number] CARE 30-74 MIN, [id number] CARE-EACH +30MIN OPHELIA NUNEZ Mar 22, 2025 20:26 ADDISON CHAPIN MD Mar 23, 2025 16:29
[2025-03-23] VITALS (105 sets, daily range): BP systolic 74–125; BP diastolic 44–92; PULSE 70–102; RESP 9–34; TEMP 97.8–98.8; O2SAT 91–100
--- NOTE | 2025-03-23 03:27 | DVH ---
CHEST RADIOGRAPH Indication: on vent Technique: 1 view Comparison: XY CHEST XRAY 1 VIEW on DOS: 03/22/25, XY CHEST PORTABLE on DOS: 03/21/25, XY CHEST PORTABLE on DOS: 03/20/25, XY CHEST XRAY 1 VIEW on DOS: 03/19/25, XY CHEST XRAY 1 VIEW on DOS: 03/18/25 FINDINGS: Lines and Tubes: Unchanged endotracheal tube, enteric tube, and right upper extremity PICC. Lungs: Bilateral interstitial prominence and bibasilar airspace disease remains. Pleura: No effusion or pneumothorax. Cardiomediastinal contours: Unchanged. Other: Unchanged. IMPRESSION: 1. No significant change from the previous study.
[2025-03-23 05:20] LABS: Nucleated Red Blood Cells % 0.0 %
[2025-03-23 05:23] LABS: Hematocrit 29.9 % (41.0-53.0); Hemoglobin 10.0 g/dL (13.5-17.5); Mean Corpuscular Hemoglobin 27.8 pg (28.0-32.0); Mean Corpuscular Volume 83.3 fL (80.0-100.0)
[2025-03-23 05:30] LABS: Chloride 107 mmol/L (98-107); Potassium 4.2 mmol/L (3.5-5.1); Sodium 144 mmol/L (136-145)
[2025-03-23 05:31] LABS: Anion Gap 7 (5-15); Calcium 9.0 mg/dL (8.7-10.4); Carbon Dioxide 30 mmol/L (20-31)
[2025-03-23 05:36] LABS: BUN/Creatinine Ratio 12.5 (10.0-20.0); Blood Urea Nitrogen 10 mg/dL (9-23)
[2025-03-23 05:42] LABS: Glucose 155 mg/dL (74-106)
[2025-03-23] MEDS: FUROSEMIDE 40 MG/4 ML VIAL IV ONE (06:33)
[2025-03-23 11:10] LABS: Base Excess 2.3 mmol/L (-2.0-3.0)
--- NOTE | 2025-03-23 22:01 | DVHPNRES ---
Progress Note Date Seen: Mar 23, 2025 Resident Creating Document: WILLICyrusMAUREEN BridgesALLI RESIDENT Has the PT tested + for MRSA If YES, has PT been informed?: No Medical Necessity Reason Pt with a Central, PICC or Fol: Yes Subjective Review of Systems 03/23 patient seen and examined at the bedside. Patient did not have any fever overnight, heart rate and respiratory rate within normal limits, vasopressor requirements decreased from 12 to 4 microgram/minute of norepinephrine. ABG compensated. Chest x-ray showed no acute worsening and the same bibasilar airspace disease,. Sedation has been weaned off but the patient does not follow commands. Objective vital signs Vital Sign Date Time Temp Pulse Resp B/P (MAP) Pulse Ox O2 Delivery O2 Flow Rate FiO2 03/23/25 20:33 72 20 115/72 (86) 94 30 03/23/25 20:00 Mechanical Ventilator+ 03/23/25 16:00 97.8 97.8 Total Intake and Output 03/22/25 03/22/25 03/23/25 15:00 23:00 07:00 Intake Total 422.250 ml 440.689 ml 818.752 ml Balance 422.250 ml 440.689 ml 818.752 ml medications Current Medications Medications Dose Ordered Sig/Andra Route Start Time Stop Time Status Last Admin Dose Admin Fentanyl Citrate 250 ml @ 2.5 mls/hr Q24H IV 03/06/25 21:00 03/23/25 18:28 10 MLS/HR Midazolam HCl 50 ml @ 1 mls/hr Q24H IV 03/06/25 21:15 03/23/25 18:26 4 MLS/HR Albuterol 2.5 mg Q6HPRN PRN NEB 03/07/25 04:15 03/22/25 23:52 2.5 MG Levetiracetam 100 ml @ 400 mls/hr BID IV 03/07/25 10:00 03/23/25 21:42 400 MLS/HR Pantoprazole Sodium 40 mg DAILY IV 03/08/25 10:00 03/23/25 09:04 40 MG Enoxaparin Sodium 40 mg DAILY SC 03/08/25 10:00 03/23/25 09:04 40 MG Norepinephrine Bitartrate 250 ml @ 3.75 mls/hr Q24H IV 03/08/25 13:00 03/23/25 07:09 8.438 MLS/HR Finasteride 5 mg DAILY GT 03/09/25 10:00 03/23/25 09:03 5 MG Tamsulosin HCl 0.4 mg QPM PO 03/09/25 18:00 03/23/25 16:55 0.4 MG Enteral Nutritional Formula 1,000 ml 40ML/HR GT 03/09/25 15:15 03/23/25 06:06 1,000 ML Lactulose 30 ml BID PO 03/14/25 22:00 03/23/25 21:42 30 ML Sodium Chloride 10 ml QSHIFT@10,22 IV 03/14/25 22:00 03/23/25 21:42 10 ML Amino Acid Protein 30 ml DAILY GT 03/17/25 10:00 03/23/25 09:03 30 ML Piperacillin Sod/ Tazobactam Sod 100 ml @ 25 mls/hr Q8HR IV 03/18/25 14:00 03/23/25 21:42 25 MLS/HR Examination Currently on lower sedation, patient opens his eyes but does not follow commands Gen - no pallor, no icterus, no cyanosis, no clubbing, no LAD, bilateral 2+ pitting edema in the lower extremities up to the knees Skin - Patients skin is warm and dry. HEENT - normocephalic, atraumatic, moist mucous membranes. Neck - no LAD, no JVD Pulmonary - B/L decreased breath sounds with mild rales, no wheezing, no stridor. cardiovascular - regular S1,S2 heard, no added sounds, no murmurs heard. GI - soft abdomen. Bowel sounds slightly hypoactive Skeletal: Severely contracted lower extremities laboratory and microbiology Laboratory Tests 03/23/25 04:51 Test 03/23/25 04:51 Range/Units Serum Glucose 155 H 74-106 mg/dL Microbiology Date/Time Source Procedure Growth Status 03/07/25 12:10 Penis Gram Stain - Final Complete 03/07/25 12:10 Wound Culture - Final Escherichia coli Complete 03/06/25 19:55 Blood Blood Culture - Final NO GROWTH AFTER 5 DAYS OF INCUBATION. Complete 03/06/25 17:55 Sputum Gram Stain - Final Complete 03/06/25 17:55 Respiratory Culture - Final Escherichia coli Klebsiella oxytoca Complete Problem List/Assessment/Plan Problem List/Assessment/Plan Neurology: Acute metabolic encephalopathy likely due to breakthrough seizure Breakthrough seizures, possible secondary to septic shock Previous history of stroke - Head Ct showed No acute intracranial abnormality, Chronic sequelae of microvascular disease and atrophic cortical volume loss. - on fentanyl and versed, patient will try to be weaned off sedation - Keppra 500 mg IV Bid Cardiology: septic shock secondary to complicated UTI/ pneumonia Possible heart failure with mildly reduced ejection fraction, chronic - Levophed increased up to 12 microgram/minute - ECHO: very limited study- lvef >45%, cannot be more accurate, RV mild dysfunction - on Zosyn Respiratory Acute on chronic hypercapnic respiratory failure COPD, possible exacerbation, improved Pneumonia d/t gram positive/negative bacteria - minimal ventilator settings - ABG reviewed, mixed respiratory and metabolic acidosis - on Zosyn - CXR shows bibasilar airspace disease, no acute worsening Nephrology Septic shock due to complicated UTI Atrophic left kidney with mild left hydroureteronephrosis. pyelonephritis. Prostatomegaly chronic bladder outlet obstruction. 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, patient also pulled out previous suprapubic catheter urology was consulted: they recommend conservative management patient urinates spontaneously order for suprapubic catheter placement: but family refuses - culture from penile wound show growth of E.coli - on Zosyn - continue finasteride and tamsulosin Metabolic: possible Euthyroid sickness syndrome Lactic acidosis, resolved Hypernatremia, resolved Heme/onc Anemia normocytic hypochromic stable H&H Gastroenterology Constipation - lactulose bid - fleet enema - golytlely X 1- small bowel movement on 03/17 DVT prophylaxis: enoxaparin PUD prophylaxis: protonix right PICC placed on 03/14 ETT 03/06 No galeas Goals of care discussed with daughter Danica and her friend at bedside. She was explained about the increasing vasopressor requirements and that he has been difficult to wean off sedation. She was also explained about the poor prognosis and that if the patient is not able to be weaned off the sedation and mechanical ventilation, tracheostomy should be done which the daughter did not want in any case. She was explained about the other option of terminal weaning and comfort measures given his poor prognosis. The daughter understood and wanted to discuss it with family and will make a decision in the next 24-48 hours. Code status: Full code Critical care time spent excluding procedures 61 mins. Case discussed with Dr Chapin Plan discussed with: Daughter, Other (RN Jonel) My Orders My Orders Orders - OPHELIA NUNEZ RESIDENT Procedure Category Date Status Time Complete Blood Count LAB 03/24/25 Verified 04:00 Comprehensive LAB 03/24/25 Verified Metabolic Panel 04:00 Abg W/ Co-Ox RT 03/24/25 Transmitted 04:00 Dietary Evaluation Review Comments: 1) TF Jevity 1.2Cal @ 50ml/hr x 24hr along with Pro-stat 1 pk daily (goal). Start @ 20ml/hr, increase 10ml/hr Q4H until goal is reached. TF @ goal volume provides 1540 kcal (100% energy needs), 81 gm protein (100% protein needs), 968 ml free water. 2) Water flush 150ml Q6H if allowed, adjust PRN 3) TPN if NPO > 7 days 4) Monitor NPO status, lab values, wt trend, I/O Expected Outcomes/Goals: Intake to meet at least 75% estimated needs Lab values to improve FU 2-3 days Date of Service: Mar 23, 2025 Billing Provider: ADDISON CHAPIN MD Common Visit Codes: [id number] CARE 30-74 MIN OPHELIA NUNEZ RESIDENT Mar 23, 2025 22:00 ADDISON CHAPIN MD Mar 24, 2025 13:04
[2025-03-24] VITALS (109 sets, daily range): BP systolic 83–125; BP diastolic 21–84; PULSE 66–98; RESP 9–24; TEMP 97.9–99.4; O2SAT 92–100
[2025-03-24 05:36] LABS: Hematocrit 30.1 % (41.0-53.0); Hemoglobin 9.9 g/dL (13.5-17.5); Mean Corpuscular Hemoglobin 27.5 pg (28.0-32.0); Mean Corpuscular Volume 83.6 fL (80.0-100.0); Nucleated Red Blood Cells % 0.1 %
[2025-03-24 05:53] LABS: Alanine Aminotransferase 32 U/L (7-40); Albumin 3.5 g/dL (3.2-4.8); Anion Gap 9 (5-15); BUN/Creatinine Ratio 14.9 (10.0-20.0); Blood Urea Nitrogen 14 mg/dL (9-23); Calcium 9.1 mg/dL (8.7-10.4); Chloride 105 mmol/L (98-107); Potassium 3.5 mmol/L (3.5-5.1); Sodium 145 mmol/L (136-145); Total Protein 6.8 g/dL (5.7-8.2)
[2025-03-24 05:57] LABS: Alkaline Phosphatase 138 U/L (46-116); Bilirubin, Total 0.3 mg/dL (0.2-1.0); Carbon Dioxide 31 mmol/L (20-31); Glucose 158 mg/dL (74-106)
--- NOTE | 2025-03-24 06:21 | DVH ---
CHEST RADIOGRAPH Indication: PATIENT INTUBATED Technique: Single frontal view of the chest was obtained Comparison: XY CHEST XRAY 1 VIEW on DOS: 03/23/25 FINDINGS: Lines and Tubes: Endotracheal tube terminates 4.9 cm above the silas. Enteric tube courses below the left hemidiaphragm but the tip extends outside the field of view. Right PICC terminates in the super ior vena cava. Lungs: Bibasilar airspace disease. Pleura: No effusion. No pneumothorax. Cardiomediastinal contours: Cardiomegaly. Bones: No acute osseous abnormality. IMPRESSION: 1. Stable position of the support lines and tubes. 2. Bibasilar airspace disease which may represent atelectasis or pneumonia.
[2025-03-24 07:27] LABS: Base Excess 5.5 mmol/L (-2.0-3.0)
--- NOTE | 2025-03-24 11:42 | MEDREC ---
[facility] Intervention Section I [facility] Intervention: Deescalate AB based on CS (CONSIDER DE-ESCALATING MEROPENEM TO CEFTRIAXONE BASED ON CULTURE RESULTS.), Review courses of therapy (Susceptibility based on culture result is INTERMEDIATE for Zosyn. Please conisder another antibiotic based on the sensitivity result) CORINE CONNELLY [facility] RESIDENT Mar 24, 2025 11:42
--- NOTE | 2025-03-24 18:47 | DVHPNRES ---
Progress Note Date Seen: Mar 24, 2025 Resident Creating Document: MAUREEN NUNEZALLI RESIDENT Has the PT tested + for MRSA If YES, has PT been informed?: No Medical Necessity Reason Pt with a Central, PICC or Fol: Yes Subjective Review of Systems 03/23 patient seen and examined at the bedside. Patient did not have any fever overnight, heart rate and respiratory rate within normal limits, vasopressor requirements increased to 8 microgram/minute of norepinephrine. ABG compensated. Chest x-ray showed no acute worsening and the same bibasilar airspace disease,. We have been coming down on the sedation but the patient does not follow commands. Objective vital signs Vital Sign Date Time Temp Pulse Resp B/P (MAP) Pulse Ox O2 Delivery O2 Flow Rate FiO2 03/24/25 18:30 79 20 97/64 (75) 94 03/24/25 18:00 Mechanical Ventilator+ 30 30 03/24/25 16:00 99.3 99.3 Total Intake and Output 03/23/25 03/23/25 03/24/25 15:00 23:00 07:00 Intake Total 369 ml 910.815 ml 1038.378 ml Balance 369 ml 910.815 ml 1038.378 ml medications Current Medications Medications Dose Ordered Sig/Andra Route Start Time Stop Time Status Last Admin Dose Admin Fentanyl Citrate 250 ml @ 2.5 mls/hr Q24H IV 03/06/25 21:00 03/24/25 18:41 10 MLS/HR Midazolam HCl 50 ml @ 1 mls/hr Q24H IV 03/06/25 21:15 03/24/25 15:23 4 MLS/HR Albuterol 2.5 mg Q6HPRN PRN NEB 03/07/25 04:15 03/24/25 12:07 2.5 MG Levetiracetam 100 ml @ 400 mls/hr BID IV 03/07/25 10:00 03/24/25 09:15 400 MLS/HR Pantoprazole Sodium 40 mg DAILY IV 03/08/25 10:00 03/24/25 09:15 40 MG Enoxaparin Sodium 40 mg DAILY SC 03/08/25 10:00 03/24/25 09:15 40 MG Norepinephrine Bitartrate 250 ml @ 3.75 mls/hr Q24H IV 03/08/25 13:00 03/24/25 06:39 15 MLS/HR Finasteride 5 mg DAILY GT 03/09/25 10:00 03/24/25 09:15 5 MG Tamsulosin HCl 0.4 mg QPM PO 03/09/25 18:00 03/24/25 17:17 0.4 MG Enteral Nutritional Formula 1,000 ml 40ML/HR GT 03/09/25 15:15 03/23/25 06:06 1,000 ML Lactulose 30 ml BID PO 03/14/25 22:00 03/24/25 09:15 30 ML Sodium Chloride 10 ml QSHIFT@10,22 IV 03/14/25 22:00 03/24/25 09:15 10 ML Amino Acid Protein 30 ml DAILY GT 03/17/25 10:00 03/24/25 09:15 30 ML Piperacillin Sod/ Tazobactam Sod 100 ml @ 25 mls/hr Q8HR IV 03/18/25 14:00 03/24/25 13:29 25 MLS/HR Examination Currently on lower sedation, patient opens his eyes but does not follow commands Gen - no pallor, no icterus, no cyanosis, no clubbing, no LAD, bilateral 2+ pitting edema in the lower extremities up to the knees Skin - Patients skin is warm and dry. HEENT - normocephalic, atraumatic, moist mucous membranes. Neck - no LAD, no JVD Pulmonary - B/L decreased breath sounds with mild rales, no wheezing, no stridor. cardiovascular - regular S1,S2 heard, no added sounds, no murmurs heard. GI - soft abdomen. Bowel sounds slightly hypoactive Skeletal: Severely contracted lower extremities laboratory and microbiology Laboratory Tests 03/24/25 04:50 Test 03/24/25 04:50 Range/Units Serum Glucose 158 H 74-106 mg/dL Microbiology Date/Time Source Procedure Growth Status 03/07/25 12:10 Penis Gram Stain - Final Complete 03/07/25 12:10 Wound Culture - Final Escherichia coli Complete 03/06/25 19:55 Blood Blood Culture - Final NO GROWTH AFTER 5 DAYS OF INCUBATION. Complete 03/06/25 17:55 Sputum Gram Stain - Final Complete 03/06/25 17:55 Respiratory Culture - Final Escherichia coli Klebsiella oxytoca Complete Problem List/Assessment/Plan Problem List/Assessment/Plan Neurology: Acute metabolic encephalopathy likely due to breakthrough seizure Breakthrough seizures, possible secondary to septic shock Previous history of stroke - Head Ct showed No acute intracranial abnormality, Chronic sequelae of microvascular disease and atrophic cortical volume loss. - on fentanyl and versed, patient will try to be weaned off sedation - Keppra 500 mg IV Bid Cardiology: septic shock secondary to complicated UTI/ pneumonia Possible heart failure with mildly reduced ejection fraction, chronic - Levophed increased up to 12 microgram/minute - ECHO: very limited study- lvef >45%, cannot be more accurate, RV mild dysfunction - on Zosyn Respiratory Acute on chronic hypercapnic respiratory failure COPD, possible exacerbation, improved Pneumonia d/t gram positive/negative bacteria - minimal ventilator settings - ABG reviewed, mixed respiratory and metabolic acidosis - on Zosyn - CXR shows bibasilar airspace disease, no acute worsening Nephrology Septic shock due to complicated UTI Atrophic left kidney with mild left hydroureteronephrosis. pyelonephritis. Prostatomegaly chronic bladder outlet obstruction. 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, patient also pulled out previous suprapubic catheter urology was consulted: they recommend conservative management patient urinates spontaneously order for suprapubic catheter placement: but family refuses - culture from penile wound show growth of E.coli - on Zosyn - continue finasteride and tamsulosin Metabolic: possible Euthyroid sickness syndrome Lactic acidosis, resolved Hypernatremia, resolved Heme/onc Anemia normocytic hypochromic stable H&H Gastroenterology Constipation - lactulose bid - fleet enema - golytlely X 1- small bowel movement on 03/17 DVT prophylaxis: enoxaparin PUD prophylaxis: protonix right PICC placed on 03/14 ETT 03/06 No galeas Goals of care discussed with daughter Danica at bedside. After all considerations she has decided to terminally wean the patient off tomorrow in the evening at 5:00 p.m. .code status was changed to do not resuscitate Code status: DNR Critical care time spent excluding procedures 61 mins. Case discussed with Dr Chapin Plan discussed with: Daughter My Orders My Orders Orders - OPHELIA NUNEZ RESIDENT Procedure Category Date Status Time Abg W/ Co-Ox RT 03/24/25 Logged 04:00 Chest Portable XY 03/24/25 Resulted 04:00 Dietary Evaluation Review Comments: 1) TF Jevity 1.2Cal @ 50ml/hr x 24hr along with Pro-stat 1 pk daily (goal). Start @ 20ml/hr, increase 10ml/hr Q4H until goal is reached. TF @ goal volume provides 1540 kcal (100% energy needs), 81 gm protein (100% protein needs), 968 ml free water. 2) Water flush 150ml Q6H if allowed, adjust PRN 3) TPN if NPO > 7 days 4) Monitor NPO status, lab values, wt trend, I/O Expected Outcomes/Goals: Intake to meet at least 75% estimated needs Lab values to improve FU 2-3 days Date of Service: Mar 24, 2025 Billing Provider: ADDISON CHAPIN MD Common Visit Codes: [id number] CARE 30-74 MIN OPHELIA NUNEZ RESIDENT Mar 24, 2025 18:47 ADDISON CHAPIN MD Mar 27, 2025 15:33
[2025-03-25] VITALS (105 sets, daily range): BP systolic 81–185; BP diastolic 54–145; PULSE 67–126; RESP 10–28; TEMP 98–99; O2SAT 87–100
--- NOTE | 2025-03-25 05:53 | DVH ---
CHEST RADIOGRAPH Indication: intubated Technique: 1 view Comparison: XY CHEST PORTABLE on DOS: 03/24/25, XY CHEST XRAY 1 VIEW on DOS: 03/23/25, XY CHEST XRAY 1 EW on DOS: 03/22/25, XY CHEST PORTABLE on DOS: 03/21/25, XY CHEST PORTABLE on DOS: 03/20/25 FINDINGS: Lines and Tubes: Unchanged endotracheal tube, enteric tube, and right upper extremity PICC. Lungs: Persistent perihilar interstitial prominence and bibasilar airspace disease likely representin g compressive atelectasis. Pleura: No large pleural effusion or pneumothorax. Cardiomediastinal contours: Unchanged. Other: No acute osseous abnormality. IMPRESSION: 1. No significant change from the previous study. Stable support devices.
[2025-03-25 06:10] LABS: Hematocrit 30.6 % (41.0-53.0); Hemoglobin 9.9 g/dL (13.5-17.5); Mean Corpuscular Hemoglobin 27.2 pg (28.0-32.0); Mean Corpuscular Volume 84.1 fL (80.0-100.0); Nucleated Red Blood Cells % 0.2 %
[2025-03-25 06:21] LABS: Anion Gap 9 (5-15); Carbon Dioxide 29 mmol/L (20-31); Potassium 3.9 mmol/L (3.5-5.1)
[2025-03-25 06:22] LABS: Calcium 9.4 mg/dL (8.7-10.4)
[2025-03-25 06:27] LABS: BUN/Creatinine Ratio 15.8 (10.0-20.0); Blood Urea Nitrogen 15 mg/dL (9-23); Chloride 108 mmol/L (98-107); Glucose 115 mg/dL (74-106); Sodium 146 mmol/L (136-145)
[2025-03-25 07:06] LABS: Base Excess 2.6 mmol/L (-2.0-3.0)
[2025-03-25] MEDS: MORPHINE SULFATE INJ 2 MG/ml SYRG IV PRN (18:09)
--- NOTE | 2025-03-25 19:31 | DVHPNRES ---
Progress Note Date Seen: Mar 25, 2025 Resident Creating Document: DERICK NUNEZGHISLAINE RESIDENT Has the PT tested + for MRSA If YES, has PT been informed?: No Medical Necessity Reason Pt with a Central, PICC or Fol: Yes Subjective Review of Systems 03/25 patient seen and examined at the bedside. Patient did not have any fever overnight, heart rate and respiratory rate within normal limits, vasopressor requirements decreased overnight. ABG compensated. Chest x-ray showed no acute worsening and the same bibasilar airspace disease. Objective vital signs Vital Sign Date Time Temp Pulse Resp B/P (MAP) Pulse Ox O2 Delivery O2 Flow Rate FiO2 03/25/25 18:39 92 11 104/74 03/25/25 18:30 94 03/25/25 18:00 45 03/25/25 18:00 Mechanical Ventilator+ 03/25/25 16:00 98.8 98.8 Total Intake and Output 03/24/25 03/24/25 03/25/25 15:00 23:00 07:00 Intake Total 432 ml 870.250 ml 713.190 ml Balance 432 ml 870.250 ml 713.190 ml medications Current Medications Medications Dose Ordered Sig/Andra Route Start Time Stop Time Status Last Admin Dose Admin Sodium Chloride 10 ml QSHIFT@10,22 IV 03/14/25 22:00 03/25/25 09:55 10 ML Morphine Sulfate 2 mg Q1HP PRN IV 03/25/25 17:30 03/25/25 18:09 2 MG Lorazepam 1 mg Q2HP PRN IV 03/25/25 17:30 Examination Currently on lower sedation, patient opens his eyes but does not follow commands Gen - no pallor, no icterus, no cyanosis, no clubbing, no LAD, bilateral 2+ pitting edema in the lower extremities up to the knees Skin - Patients skin is warm and dry. HEENT - normocephalic, atraumatic, moist mucous membranes. Neck - no LAD, no JVD Pulmonary - B/L decreased breath sounds with mild rales, no wheezing, no stridor. cardiovascular - regular S1,S2 heard, no added sounds, no murmurs heard. GI - soft abdomen. Bowel sounds slightly hypoactive Skeletal: Severely contracted lower extremities laboratory and microbiology Laboratory Tests 03/25/25 04:53 Test 03/25/25 04:53 Range/Units Serum Glucose 115 H 74-106 mg/dL Microbiology Date/Time Source Procedure Growth Status 03/07/25 12:10 Penis Gram Stain - Final Complete 03/07/25 12:10 Wound Culture - Final Escherichia coli Complete 03/06/25 19:55 Blood Blood Culture - Final NO GROWTH AFTER 5 DAYS OF INCUBATION. Complete 03/06/25 17:55 Sputum Gram Stain - Final Complete 03/06/25 17:55 Respiratory Culture - Final Escherichia coli Klebsiella oxytoca Complete Problem List/Assessment/Plan Problem List/Assessment/Plan Neurology: Acute metabolic encephalopathy likely due to breakthrough seizure Breakthrough seizures, possible secondary to septic shock Previous history of stroke - Head Ct showed No acute intracranial abnormality, Chronic sequelae of microvascular disease and atrophic cortical volume loss. - on fentanyl and versed, patient will try to be weaned off sedation - Keppra 500 mg IV Bid Cardiology: septic shock secondary to complicated UTI/ pneumonia Possible heart failure with mildly reduced ejection fraction, chronic - Levophed increased up to 12 microgram/minute - ECHO: very limited study- lvef >45%, cannot be more accurate, RV mild dysfunction - on Zosyn Respiratory Acute on chronic hypercapnic respiratory failure COPD, possible exacerbation, improved Pneumonia d/t gram positive/negative bacteria - minimal ventilator settings - ABG reviewed, mixed respiratory and metabolic acidosis - on Zosyn - CXR shows bibasilar airspace disease, no acute worsening Nephrology Septic shock due to complicated UTI Atrophic left kidney with mild left hydroureteronephrosis. pyelonephritis. Prostatomegaly chronic bladder outlet obstruction. 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, patient also pulled out previous suprapubic catheter urology was consulted: they recommend conservative management patient urinates spontaneously order for suprapubic catheter placement: but family refuses - culture from penile wound show growth of E.coli - on Zosyn - continue finasteride and tamsulosin Metabolic: possible Euthyroid sickness syndrome Lactic acidosis, resolved Hypernatremia, resolved Heme/onc Anemia normocytic hypochromic stable H&H Gastroenterology Constipation - lactulose bid - fleet enema - golytlely X 1- small bowel movement on 03/17 DVT prophylaxis: enoxaparin PUD prophylaxis: protonix right PICC placed on 03/14 ETT 03/06 No galeas Goals of care discussed with domo Mishra at bedside. Patient terminally weaned at around 1820 hrs as per the family's wishes. Code status: DNR Critical care time spent excluding procedures 41mins. Case discussed with Dr Khanna Plan discussed with: Daughter, Other (RN Maday) My Orders My Orders Orders - OPHELIA NUNEZ Procedure Category Date Status Time Code Status CODE 03/24/25 Transmitted 19:26 Chest Portable XY 03/25/25 Resulted 04:23 Rt To Terminal Wean Pt ORDERS 03/25/25 Transmitted 17:21 Morphine Sulfate PHA 03/25/25 In Process Injection 17:30 Lorazepam 2mg/Ml Inj PHA 03/25/25 In Process (Ativan Inj) 17:30 Dietary Evaluation Review Comments: 1) TF Jevity 1.2Cal @ 50ml/hr x 24hr along with Pro-stat 1 pk daily (goal). Start @ 20ml/hr, increase 10ml/hr Q4H until goal is reached. TF @ goal volume provides 1540 kcal (100% energy needs), 81 gm protein (100% protein needs), 968 ml free water. 2) Water flush 150ml Q6H if allowed, adjust PRN 3) TPN if NPO > 7 days 4) Monitor NPO status, lab values, wt trend, I/O Expected Outcomes/Goals: Intake to meet at least 75% estimated needs Lab values to improve FU 2-3 days OPHELIA NUNEZ RESIDENT Mar 25, 2025 19:31
[2025-03-25] MEDS: LORazepam 2MG/ML-1ML VIAL IV PRN (19:52)
[2025-03-26] VITALS (63 sets, daily range): BP systolic 104–151; BP diastolic 72–102; PULSE 83–100; RESP 10–21; TEMP 98.6–99.2; O2SAT 91–99
--- NOTE | 2025-03-26 11:55 | DVHPN2 ---
Subjective Encephalopathic Reviewed: Care Plan, H&P, Labs, Medications, Previous Orders, Radiology Changes from previous H/P or p: No Changes General: Per HPI Objective Vitals Vital Signs Date Time Temp Pulse Resp B/P (MAP) Pulse Ox O2 Delivery O2 Flow Rate FiO2 03/26/25 11:40 14 95 Nasal Cannula* 2 28 03/26/25 11:30 89 121/82 (95) 03/26/25 07:45 99.0 99.0 Intake/Output Intake and Output 03/26/25 07:00 Intake Total 878.971 ml Balance 878.971 ml Intake Oral 495 ml IV Total 383.971 ml # Voids 6 # Bowel Movements 1 General Appearance: Alert, Other (Enchephalopathic) HEENT: Atraumatic, PERRLA Cardiovascular: Regular rate, Normal S1, Normal S2 Skin: Dry, Intact Psych/Mental Status: Mental status NL Medications Current Medications Medications Dose Ordered Sig/Andra Route Start Time Stop Time Status Last Admin Dose Admin Sodium Chloride 10 ml QSHIFT@10,22 IV 03/14/25 22:00 03/26/25 08:46 10 ML Morphine Sulfate 2 mg Q1HP PRN IV 03/25/25 17:30 03/26/25 10:54 2 MG Lorazepam 1 mg Q2HP PRN IV 03/25/25 17:30 03/26/25 09:51 1 MG Laboratory Results Laboratory Tests 03/25/25 04:53 Microbiology Microbiology Date/Time Source Procedure Growth Status 03/07/25 12:10 Penis Gram Stain - Final Complete 03/07/25 12:10 Wound Culture - Final Escherichia coli Complete 03/06/25 19:55 Blood Blood Culture - Final NO GROWTH AFTER 5 DAYS OF INCUBATION. Complete 03/06/25 17:55 Sputum Gram Stain - Final Complete 03/06/25 17:55 Respiratory Culture - Final Escherichia coli Klebsiella oxytoca Complete Labs and/or images reviewed: Labs reviewed by me, Image(s) reviewed by me Assessment/Plan Assessment/Plan Impression: -acute metabolic encephalopathy secondary to sepsis -breakthrough seizures -septic shock -complicated cystitis -community-acquired pneumonia, probable aspiration etiology -COPD with exacerbation -acute on chronic hypoxic and hypercarbic respiratory failure -prostatomegaly Plan: -patient compassionately extubated yesterday. Patient with stable vital signs. We will downgrade patient to telemetry floor with comfort care. We will discuss with family possible hospice care when they arrived at bedside. Total time spent with patient discussing and formulating plan of care: 35 minutes. This medical document was created using an electronic medical record system with [employer] dictation system. Although this document has been carefully reviewed, there may still be some phonetic and typographical errors. These areas are purely typographical due to imperfections of the software programs, and do not reflect any compromise in the patient's medical care. Plan discussed with: Patient, Other (RN) My Orders Orders - DARREN BUNCH NP Procedure Category Date Status Time Transfer Orders XFER 03/26/25 Transmitted 11:36 Date of Service: Mar 26, 2025 Billing Provider: DARREN BUNCH NP Common Visit Codes: [id number] INP/OBS CARE(HIGH) DARREN BUNCH NP Mar 26, 2025 11:55
--- NOTE | 2025-03-26 17:38 | DVHPN2 ---
Progress Note - Dictate Date Seen: Mar 26, 2025 Has the PT tested + for MRSA If YES, has PT been informed?: No Medical Necessity Reason Pt with a Central, PICC or Fol: Yes vital signs Vital Sign Date Time Temp Pulse Resp B/P (MAP) Pulse Ox O2 Delivery O2 Flow Rate FiO2 03/26/25 16:14 93 20 115/81 03/26/25 15:56 99.2 96 99.2 03/26/25 15:55 Nasal Cannula* 2 28 Total Intake and Output 03/25/25 03/25/25 03/26/25 15:00 23:00 07:00 Intake Total 287.595 ml 591.376 ml Balance 287.595 ml 591.376 ml medications Current Medications Medications Dose Ordered Sig/Andra Route Start Time Stop Time Status Last Admin Dose Admin Sodium Chloride 10 ml QSHIFT@10,22 IV 03/14/25 22:00 03/26/25 08:46 10 ML Morphine Sulfate 2 mg Q1HP PRN IV 03/25/25 17:30 03/26/25 15:44 2 MG Lorazepam 1 mg Q2HP PRN IV 03/25/25 17:30 03/26/25 14:31 1 MG laboratory and microbiology Laboratory Tests 03/25/25 04:53 Test 03/25/25 04:53 Range/Units Serum Glucose 115 H 74-106 mg/dL Assessment/Plan Covering for Dr. Xie Impression Acute on chronic respiratory failure Pneumonia Atelectasis COPD Patient seen and examined Events Goals of care transitioned to comfort measures S/p compassionate wean Management Comfort measures Prn Morphine and Ativan Dietary Evaluation Review Comments: 1) TF Jevity 1.2Cal @ 50ml/hr x 24hr along with Pro-stat 1 pk daily (goal). Start @ 20ml/hr, increase 10ml/hr Q4H until goal is reached. TF @ goal volume provides 1540 kcal (100% energy needs), 81 gm protein (100% protein needs), 968 ml free water. 2) Water flush 150ml Q6H if allowed, adjust PRN 3) TPN if NPO > 7 days 4) Monitor NPO status, lab values, wt trend, I/O Expected Outcomes/Goals: Intake to meet at least 75% estimated needs Lab values to improve FU 2-3 days Plan discussed with: Other (Rn) CHEPE GOTTLIEB MD Mar 26, 2025 17:38
[2025-03-27] VITALS (10 sets, daily range): BP systolic 141–156; BP diastolic 98–118; PULSE 83–114; RESP 18–24; TEMP 96.8–99.7; O2SAT 94–98
--- NOTE | 2025-03-27 08:59 | DVHPN2 ---
Subjective Encephalopathic Reviewed: Care Plan, H&P, Labs, Medications, Previous Orders, Radiology Changes from previous H/P or p: No Changes General: Per HPI Objective Vitals Vital Signs Date Time Temp Pulse Resp B/P (MAP) Pulse Ox O2 Delivery O2 Flow Rate FiO2 03/27/25 05:00 98.4 92 19 149/102 (118) 98 98.4 03/27/25 00:24 Nasal Cannula* 2 28 Intake/Output Intake and Output 03/27/25 07:00 # Voids 4 General Appearance: Alert, Other (Enchephalopathic) HEENT: Atraumatic, PERRLA Lungs: Other (Bilateral rhonchi) Cardiovascular: Regular rate, Normal S1, Normal S2 Skin: Dry, Intact Psych/Mental Status: Mental status NL Medications Current Medications Medications Dose Ordered Sig/Andra Route Start Time Stop Time Status Last Admin Dose Admin Sodium Chloride 10 ml QSHIFT@10,22 IV 03/14/25 22:00 03/26/25 21:59 10 ML Morphine Sulfate 2 mg Q1HP PRN IV 03/25/25 17:30 03/27/25 04:19 2 MG Lorazepam 1 mg Q2HP PRN IV 03/25/25 17:30 03/27/25 08:33 1 MG Laboratory Results Laboratory Tests 03/25/25 04:53 Microbiology Microbiology Date/Time Source Procedure Growth Status 03/07/25 12:10 Penis Gram Stain - Final Complete 03/07/25 12:10 Wound Culture - Final Escherichia coli Complete 03/06/25 19:55 Blood Blood Culture - Final NO GROWTH AFTER 5 DAYS OF INCUBATION. Complete 03/06/25 17:55 Sputum Gram Stain - Final Complete 03/06/25 17:55 Respiratory Culture - Final Escherichia coli Klebsiella oxytoca Complete Labs and/or images reviewed: Labs reviewed by me, Image(s) reviewed by me Assessment/Plan Assessment/Plan Impression: -acute metabolic encephalopathy secondary to sepsis -breakthrough seizures -septic shock -complicated cystitis -community-acquired pneumonia, probable aspiration etiology -COPD with exacerbation -acute on chronic hypoxic and hypercarbic respiratory failure -prostatomegaly Plan: Events: Patient's vital signs stable. Continues to be encephalopathic. Discussed with patient's daughter, Danica hospice care. Social service consultation placed. Continue comfort care Total time spent with patient discussing and formulating plan of care: 35 minutes. Total time spent with patient and family regarding advance care plannin minutes. This medical document was created using an electronic medical record system with [employer] computerized dictation system. Although this document has been carefully reviewed, there may still be some phonetic and typographical errors. These areas are purely typographical due to imperfections of the software programs, and do not reflect any compromise in the patient's medical care. Plan discussed with: Patient, Other (RN) My Orders Orders - DARREN BUNCH NP Procedure Category Date Status Time Transfer Orders XFER 03/26/25 Transmitted 11:36 * [employer] CONS 03/27/25 Transmitted Consult Date of Service: Mar 27, 2025 Billing Provider: DARREN BUNCH NP Common Visit Codes: [id number] INP/OBS CARE(HIGH) DARREN BUNCH NP Mar 27, 2025 08:59
--- NOTE | 2025-03-27 17:16 | DVHPN2 ---
Progress Note - Dictate Date Seen: Mar 27, 2025 Has the PT tested + for MRSA If YES, has PT been informed?: No Medical Necessity Reason Pt with a Central, PICC or Fol: Yes vital signs Vital Sign Date Time Temp Pulse Resp B/P (MAP) Pulse Ox O2 Delivery O2 Flow Rate FiO2 03/27/25 16:56 99.7 108 19 145/106 (119) 95 99.7 03/27/25 08:00 Nasal Cannula* 2 28 Total Intake and Output 03/26/25 03/26/25 03/27/25 15:00 23:00 07:00 Intake Total 0 ml Balance 0 ml medications Current Medications Medications Dose Ordered Sig/Andra Route Start Time Stop Time Status Last Admin Dose Admin Sodium Chloride 10 ml QSHIFT@10, IV 03/14/25 22:00 03/27/25 10:22 10 ML Morphine Sulfate 2 mg Q1HP PRN IV 03/25/25 17:30 03/27/25 14:29 2 MG Lorazepam 1 mg Q2HP PRN IV 03/25/25 17:30 03/27/25 17:06 1 MG laboratory and microbiology Laboratory Tests 03/25/25 04:53 Test 03/25/25 04:53 Range/Units Serum Glucose 115 H 74-106 mg/dL Assessment/Plan Covering for Dr. Xie Impression Acute on chronic respiratory failure Pneumonia Atelectasis COPD Patient seen and examined Events Goals of care transitioned to comfort measures S/p compassionate wean Management Comfort measures Prn Morphine and Ativan Dietary Evaluation Review Comments: 1) TF Jevity 1.2Cal @ 50ml/hr x 24hr along with Pro-stat 1 pk daily (goal). Start @ 20ml/hr, increase 10ml/hr Q4H until goal is reached. TF @ goal volume provides 1540 kcal (100% energy needs), 81 gm protein (100% protein needs), 968 ml free water. 2) Water flush 150ml Q6H if allowed, adjust PRN 3) TPN if NPO > 7 days 4) Monitor NPO status, lab values, wt trend, I/O Expected Outcomes/Goals: Intake to meet at least 75% estimated needs Lab values to improve FU 2-3 days Plan discussed with: Other (Rn) CHEPE GOTTLIEB MD Mar 27, 2025 17:16
[2025-03-28] VITALS (8 sets, daily range): BP systolic 142–161; BP diastolic 81–114; PULSE 5–113; RESP 19–28; TEMP 97.1–99.6; O2SAT 94–98
--- NOTE | 2025-03-28 20:42 | DVHPNRES ---
Progress Note Date Seen: Mar 28, 2025 Resident Creating Document: OPHELIA NUNEZ RESIDENT Has the PT tested + for MRSA If YES, has PT been informed?: No Medical Necessity Reason Pt with a Central, PICC or Fol: Yes Subjective Review of Systems Patient seen and examined at bedside not responding to voice commands breathing is no laboured, vitals stable Objective vital signs Vital Sign Date Time Temp Pulse Resp B/P (MAP) Pulse Ox O2 Delivery O2 Flow Rate FiO2 03/28/25 17:00 97.1 98 24 150/107 (121) 97 97.1 03/28/25 08:00 Nasal Cannula* 2 28 Total Intake and Output 03/27/25 03/27/25 03/28/25 15:00 23:00 07:00 Intake Total 0 ml 0 ml Balance 0 ml 0 ml medications Current Medications Medications Dose Ordered Sig/Andra Route Start Time Stop Time Status Last Admin Dose Admin Sodium Chloride 10 ml QSHIFT@10,22 IV 03/14/25 22:00 03/28/25 11:03 10 ML Morphine Sulfate 2 mg Q1HP PRN IV 03/25/25 17:30 03/28/25 08:00 2 MG Lorazepam 1 mg Q2HP PRN IV 03/25/25 17:30 03/28/25 14:32 1 MG Examination Gen - no pallor, no icterus, no cyanosis, bilateral 2+ pitting edema in the feet Skin - Patients skin is warm and dry. HEENT - normocephalic, atraumatic, moist mucous membranes. Neck - no LAD, no JVD Pulmonary - B/L equal breath sounds rales, no wheezing, no stridor. cardiovascular - regular S1,S2 heard, no added sounds, no murmurs heard. GI - soft abdomen. Bowel sounds slightly hypoactive Skeletal: Severely contracted lower extremities neurological- patient is stuporous and not responding to voice commands laboratory and microbiology Laboratory Tests 03/25/25 04:53 Test 03/25/25 04:53 Range/Units Serum Glucose 115 H 74-106 mg/dL Microbiology Date/Time Source Procedure Growth Status 03/07/25 12:10 Penis Gram Stain - Final Complete 03/07/25 12:10 Wound Culture - Final Escherichia coli Complete 03/06/25 19:55 Blood Blood Culture - Final NO GROWTH AFTER 5 DAYS OF INCUBATION. Complete 03/06/25 17:55 Sputum Gram Stain - Final Complete 03/06/25 17:55 Respiratory Culture - Final Escherichia coli Klebsiella oxytoca Complete Problem List/Assessment/Plan Problem List/Assessment/Plan Neurology: Acute metabolic encephalopathy likely due to breakthrough seizure Breakthrough seizures, possible secondary to septic shock Previous history of stroke - Head Ct showed No acute intracranial abnormality, Chronic sequelae of microvascular disease and atrophic cortical volume loss. - on fentanyl and versed, patient will try to be weaned off sedation - Keppra 500 mg IV Bid Cardiology: septic shock secondary to complicated UTI/ pneumonia Possible heart failure with mildly reduced ejection fraction, chronic - comfort measures Respiratory Acute on chronic hypercapnic respiratory failure COPD, possible exacerbation, improved Pneumonia d/t gram positive/negative bacteria - comfort measures Nephrology Septic shock due to complicated UTI Atrophic left kidney with mild left hydroureteronephrosis. pyelonephritis. Prostatomegaly chronic bladder outlet obstruction. YARA due to VMN and chronic bladder outlet obstruction, resolving - comfort measures Metabolic: possible Euthyroid sickness syndrome Lactic acidosis, resolved Hypernatremia, resolved - comfort measures Heme/onc Anemia normocytic hypochromic - comfort measures Gastroenterology Constipation - comfort measures Goals of care discussed with domo Mishra at bedside. Patient terminally weaned on friday. awaiting Hospice Code status: DNR time spent:31 mins. Case discussed with Dr Chapin Plan discussed with: Daughter, Other (DANIKA Pastor) Dietary Evaluation Review Comments: 1) TF Jevity 1.2Cal @ 50ml/hr x 24hr along with Pro-stat 1 pk daily (goal). Start @ 20ml/hr, increase 10ml/hr Q4H until goal is reached. TF @ goal volume provides 1540 kcal (100% energy needs), 81 gm protein (100% protein needs), 968 ml free water. 2) Water flush 150ml Q6H if allowed, adjust PRN 3) TPN if NPO > 7 days 4) Monitor NPO status, lab values, wt trend, I/O Expected Outcomes/Goals: Intake to meet at least 75% estimated needs Lab values to improve FU 2-3 days Date of Service: Mar 28, 2025 Billing Provider: ADDISON CHAPIN MD Common Visit Codes: [id number] INP/OBS CARE(HIGH) Secondary Visit Codes: [id number] CARE PLAN 30 MINUTES OPHELIA NUNEZ RESIDENT Mar 28, 2025 20:42 ADDISON CHAPIN MD Mar 29, 2025 10:20
[2025-03-29] VITALS (8 sets, daily range): BP systolic 137–165; BP diastolic 92–118; PULSE 69–100; RESP 18–26; TEMP 96.6–98; O2SAT 84–98
[2025-03-29] MEDS: hydrALAZINE HCL 20 MG/ML VL IV ONE (11:16)
[2025-03-30 01:00] VITALS: BP 141/105; PULSE 89; RESP 24; TEMP 97.7; O2SAT 97
[2025-03-30 05:00] VITALS: BP 148/107; PULSE 86; RESP 17; TEMP 98.1; O2SAT 99
--- NOTE | 2025-03-30 06:25 | DVHPNRES ---
Progress Note Date Seen: Mar 29, 2025 Resident Creating Document: OPHELIA NUNEZ RESIDENT Has the PT tested + for MRSA If YES, has PT been informed?: No Medical Necessity Reason Pt with a Central, PICC or Fol: Yes Subjective Review of Systems Patient seen and examined at bedside not responding to voice commands breathing is no laboured, vitals stable Objective vital signs Vital Sign Date Time Temp Pulse Resp B/P (MAP) Pulse Ox O2 Delivery O2 Flow Rate FiO2 03/30/25 05:00 98.1 86 17 148/107 (121) 99 98.1 03/29/25 20:00 Nasal Cannula* 2 28 Total Intake and Output 03/29/25 03/29/25 03/30/25 15:00 23:00 07:00 Intake Total 0 ml Balance 0 ml medications Current Medications Medications Dose Ordered Sig/Andra Route Start Time Stop Time Status Last Admin Dose Admin Sodium Chloride 10 ml QSHIFT@10,22 IV 03/14/25 22:00 03/29/25 21:46 10 ML Morphine Sulfate 2 mg Q1HP PRN IV 03/25/25 17:30 03/30/25 00:32 2 MG Lorazepam 1 mg Q2HP PRN IV 03/25/25 17:30 03/30/25 00:31 1 MG Examination Gen - no pallor, no icterus, no cyanosis, bilateral 2+ pitting edema in the feet Skin - Patients skin is warm and dry. HEENT - normocephalic, atraumatic, moist mucous membranes. Neck - no LAD, no JVD Pulmonary - B/L equal breath sounds rales, no wheezing, no stridor. cardiovascular - regular S1,S2 heard, no added sounds, no murmurs heard. GI - soft abdomen. Bowel sounds slightly hypoactive Skeletal: Severely contracted lower extremities neurological- patient is altered with spontaneous eye opening, not responding to voice commands laboratory and microbiology Laboratory Tests 03/25/25 04:53 Test 03/25/25 04:53 Range/Units Serum Glucose 115 H 74-106 mg/dL Microbiology Date/Time Source Procedure Growth Status 03/07/25 12:10 Penis Gram Stain - Final Complete 03/07/25 12:10 Wound Culture - Final Escherichia coli Complete 03/06/25 19:55 Blood Blood Culture - Final NO GROWTH AFTER 5 DAYS OF INCUBATION. Complete 03/06/25 17:55 Sputum Gram Stain - Final Complete 03/06/25 17:55 Respiratory Culture - Final Escherichia coli Klebsiella oxytoca Complete Problem List/Assessment/Plan Problem List/Assessment/Plan Neurology: Acute metabolic encephalopathy likely due to breakthrough seizure Breakthrough seizures, possible secondary to septic shock Previous history of stroke - Head Ct showed No acute intracranial abnormality, Chronic sequelae of microvascular disease and atrophic cortical volume loss. - on fentanyl and versed, patient will try to be weaned off sedation - Keppra 500 mg IV Bid Cardiology: septic shock secondary to complicated UTI/ pneumonia Possible heart failure with mildly reduced ejection fraction, chronic - comfort measures Respiratory Acute on chronic hypercapnic respiratory failure COPD, possible exacerbation, improved Pneumonia d/t gram positive/negative bacteria - comfort measures Nephrology Septic shock due to complicated UTI Atrophic left kidney with mild left hydroureteronephrosis. pyelonephritis. Prostatomegaly chronic bladder outlet obstruction. YARA due to VMN and chronic bladder outlet obstruction, resolving - comfort measures Metabolic: possible Euthyroid sickness syndrome Lactic acidosis, resolved Hypernatremia, resolved - comfort measures Heme/onc Anemia normocytic hypochromic - comfort measures Gastroenterology Constipation - comfort measures Goals of care discussed with daughter Danica. Patient terminally weaned on friday. awaiting Hospice placement Code status: DNR time spent:31 mins. Case discussed with Dr Chapin Plan discussed with: Daughter, Other (RN Ale) My Orders My Orders Orders - OPHELIA NUNEZ RESIDENT Procedure Category Date Status Time Discharge DISCHARGE 03/29/25 Transmitted 10:20 Dietary Evaluation Review Comments: 1) TF Jevity 1.2Cal @ 50ml/hr x 24hr along with Pro-stat 1 pk daily (goal). Start @ 20ml/hr, increase 10ml/hr Q4H until goal is reached. TF @ goal volume provides 1540 kcal (100% energy needs), 81 gm protein (100% protein needs), 968 ml free water. 2) Water flush 150ml Q6H if allowed, adjust PRN 3) TPN if NPO > 7 days 4) Monitor NPO status, lab values, wt trend, I/O Expected Outcomes/Goals: Intake to meet at least 75% estimated needs Lab values to improve FU 2-3 days Date of Service: Mar 29, 2025 Billing Provider: ADDISON CHAPIN MD Common Visit Codes: [id number] INP/OBS CARE(HIGH) OPHELIA NUNEZ RESIDENT Mar 30, 2025 06:24 ADDISON CHAPIN MD Mar 30, 2025 10:55
[2025-03-30 08:00] VITALS: PULSE 85
[2025-03-30 08:21] VITALS: BP 155/116; PULSE 94; RESP 22; TEMP 98.4; O2SAT 92
[2025-03-30 13:00] VITALS: BP 147/116; PULSE 99; RESP 21; TEMP 98.4; O2SAT 99
[2025-03-30 16:40] VITALS: BP 153/119; PULSE 114; RESP 22; TEMP 98.6; O2SAT 94
--- NOTE | 2025-03-30 18:21 | DVHDSRES ---
Discharge Summary Date of Admission Resident Creating Document: OPHELIA NUNEZ RESIDENT Mar 06, 2025 at 23:50 Date of Discharge: Mar 30, 2025 Admitting Diagnosis Septic shock Metabolic encephalopathy Seizure activity Acute kidney injury Labs/Diagnostic Data: Laboratory Results Test 03/25/25 06:55 03/25/25 04:53 03/24/25 07:16 03/24/25 04:50 Blood Gas Specimen Type Arterial Blood Gas Sample Site Right radial Blood Gas Patient Temperature 37.0 Arterial Blood Date Drawn [id number] Arterial Blood pH 7.423 (7.350-7.450) Arterial Blood Partial Pressure CO2 42.8 mmHg (35.0-48.0) Arterial Blood Partial Pressure O2 76.2 mmHg (83.0-108.0) Arterial Blood HCO3 27.3 mmol/L (21.0-28.0) Arterial Blood Oxygen Saturation 94.2 % (94.0-98.0) Arterial Blood Base Excess 2.6 mmol/L (-2.0-3.0) Arterial Blood Oxyhemoglobin 93.7 % (94.0-98.0) Arterial Blood Carboxyhemoglobin 0.2 % (0.5-1.5) Arterial Blood Methemoglobin 0.3 % (0.0-1.5) Mateo Test Modified Blood Gas Total Hemoglobin 10.50 g/dL (13.5-17.5) Blood Gas Set Respiration Rate 20.0 Blood Gas Modality Vent - ac Blood Gas Spontaneous Rate 20 FiO2 % 30.0 Blood Gas Tidal Volume 450.0 Blood Gas Spontaneous Tidal Volume 474 Bl Gas Inspiratory/Expiratory Ratio 1:2 White Blood Count 7.2 10^3/uL (4.4-10.8) Red Blood Count 3.64 10^6/uL (4.5-5.90) Hemoglobin 9.9 g/dL (13.5-17.5) Hematocrit 30.6 % (41.0-53.0) Mean Corpuscular Volume 84.1 fL (80.0-100.0) Mean Corpuscular Hemoglobin 27.2 pg (28.0-32.0) Mean Corpuscular Hemoglobin Concent 32.3 g/dL (32.0-36.0) Red Cell Distribution Width 16.4 % (11.8-14.3) Platelet Count 872 10^3/uL (140-450) Mean Platelet Volume 8.0 fL (6.9-10.8) Neutrophils (%) (Auto) 56.4 % (37.0-80.0) Lymphocytes (%) (Auto) 25.4 % (10.0-50.0) Monocytes (%) (Auto) 6.9 % (0.0-12.0) Eosinophils (%) (Auto) 10.6 % (0.0-7.0) Basophils (%) (Auto) 0.7 % (0.0-2.0) Neutrophils # (Auto) 4.1 10 ^3/uL (1.6-8.6) Lymphocytes # (Auto) 1.8 10 ^3/uL (0.4-5.4) Monocytes # (Auto) 0.5 10 ^3/uL (0-1.3) Eosinophils # (Auto) 0.8 10 ^3/uL (0-0.8) Basophils # (Auto) 0 10 ^3/uL (0-0.2) Nucleated Red Blood Cells 0.2 % Sodium Level 146 mmol/L (136-145) Potassium Level 3.9 mmol/L (3.5-5.1) Chloride Level 108 mmol/L (98-107) Carbon Dioxide Level 29 mmol/L (20-31) Anion Gap 9 (5-15) Blood Urea Nitrogen 15 mg/dL (9-23) Creatinine 0.95 mg/dL (0.700-1.30) Glomerular Filtration Rate Calc 89 mL/min (>90) BUN/Creatinine Ratio 15.8 (10.0-20.0) Serum Glucose 115 mg/dL (74-106) Calcium Level 9.4 mg/dL (8.7-10.4) Blood Gas PEEP or CPAP 5.0 Total Bilirubin 0.3 mg/dL (0.2-1.0) Aspartate Amino Transferase (AST) 49 U/L (13-40) Alanine Aminotransferase (ALT) 32 U/L (7-40) Alkaline Phosphatase 138 U/L (46-116) Total Protein 6.8 g/dL (5.7-8.2) Albumin 3.5 g/dL (3.2-4.8) Test 03/20/25 03:38 03/19/25 05:40 03/13/25 17:49 03/13/25 12:00 Magnesium Level 2.1 mg/dL (1.6-2.6) Blood Gas Critical Value Read Back yes Blood Gas Notified Whom ajoliver Blood Gas Notified Time [id number] Blood Gas Notified By structural steel worker patel Prothrombin Time 11.1 sec (9.3-11.8) Prothrombin Time INR 1.05 (0.9-1.15) Activated Partial Thromboplast Time 31.6 SEC (24.5-34.5) Vancomycin Level Trough 19.0 ug/mL (5-10) Test 03/09/25 04:35 03/08/25 06:23 03/08/25 03:04 03/07/25 04:02 Random Vancomycin Level 9.7 ug/mL (5-10) Free Thyroxine (T4) Calculated 1.05 ng/dL (0.89-1.76) Free Triiodothyronine (T3) pg/mL 1.72 pg/mL (2.3-4.2) Differential Total Cells Counted 100.0 (100) Neutrophils % (Manual) 93 (37.0-80.0) Band Neutrophils % (Manual) 1 Lymphocytes % (Manual) 2 (10.0-50.0) Monocytes % (Manual) 4 (0-12) Eosinophils % (Manual) 0 (0-7) Basophils % (Manual) 0 (0.0-2.0) Metamyelocytes % (manual) 0 Myelocytes % (Manual) 0 Promyelocytes % (Manual) 0 Blast Cells % (Manual) 0 Reactive Lymphocytes 0 Platelet Estimate Adequate B-Type Natriuretic Peptide 111.11 pg/mL (0-100) Thyroid Stimulating Hormone (TSH) 0.03 uIU/mL (0.55-4.78) Large Platelets Few Test 03/07/25 04:00 03/06/25 23:26 03/06/25 21:26 03/06/25 19:55 Hemoglobin A1c 5.5 % A1C (<5.7) Specimen Drawn By Hiwot arreguin rt Lactic Acid Level 2.6 mmol/L (0.4-2.0) Anisocytosis (manual) Slight Other Laboratory Tests 03/25/25 04:53 Brief Hx & Hospital Course: Patient a 65-year-old male with a medical history of COPD, seizures, dementia, hypothyroidism, BPH, Parkinson's disease was brought to the ED via EMS after having generalized tonic-clonic seizure. As per the family patient had 2 per seizures that day while on Keppra. The ED patient was intubated for airway protection due to postictal status. Patient was initially seen to have mixed respiratory and metabolic acidosis with elevated lactic acid levels. CT abdomen pelvis was done which showed possible left pyelonephritis with the atrophic left kidney and mild left hydroureteronephrosis, prostatomegaly with secondary findings to suggest chronic bladder outlet obstruction, multifocal airspace disease in the lungs suspicious for multifocal infection. Sputum culture showed growth of Klebsiella and E coli. IR were consulted for suprapubic catheter placement but family refused due to previous suprapubic catheter that the patient pulled out. 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 Patient is incontinent and no Abrams's catheter could be placed, urology were consulted who recommended conservative management given the patient has dementia, severely contracted and has poor prognosis. After stabilization patient was tried to be weaned off sedation multiple times but every time patient was weaned of he started to hold his breath, no respond to verbal commands and no spontaneous breathing trials could be attempted. Patient's daughter was reported about the events of and was explained about difficult extubation given patient had underlying dementia. We also discussed that we were not able to extubate the patient then the other option would be continuing with the patient on mechanical ventilation after a tracheostomy but the daughter refused tracheostomy. After prolonged discussion patient was then made comfort measures and removed from mechanical ventilation. Was accepted at hospice care facility and was transferred with guarded prognosis. Gen - no pallor, no icterus, no cyanosis, bilateral 2+ pitting edema in the feet Skin - Patients skin is warm and dry. HEENT - normocephalic, atraumatic, moist mucous membranes. Neck - no JVD Pulmonary - B/L equal breath sounds rales, no wheezing, no stridor. cardiovascular - regular S1,S2 heard, no added sounds, no murmurs heard. GI - soft abdomen. Bowel sounds slightly hypoactive Skeletal: Severely contracted lower extremities neurological- patient is altered with spontaneous eye opening, not responding to voice commands Time spent on discharge plannin minutes Condition at Discharge: Guarded Final Diagnosis/Problems List Acute metabolic encephalopathy likely due to breakthrough seizure Breakthrough seizures, possible secondary to septic shock septic shock secondary to complicated UTI/ pneumonia Possible heart failure with mildly reduced ejection fraction, chronic Acute on chronic hypercapnic respiratory failure COPD, possible exacerbation, improved Pneumonia d/t gram positive/negative bacteria Septic shock due to complicated UTI Atrophic left kidney with mild left hydroureteronephrosis. pyelonephritis. Prostatomegaly chronic bladder outlet obstruction. YARA due to VMN and chronic bladder outlet obstruction, resolving possible Euthyroid sickness syndrome Lactic acidosis, resolved Hypernatremia, resolved Anemia normocytic hypochromic Constipation Discharge Disposition: Hospice- Medical Facility Discharge Instruct/Medications Diet: See Comment Diet comment: patient does not follow commands Activity: No Restrictions, As Tolerated Follow Up/Referral: Follow up with hospice Medications: as per MAR Scheduled Benztropine Mesylate (Benztropine Mesylate), 0.5 MG PO DAILY, (Reported) Cefuroxime Axetil (Cefuroxime Axetil), 500 MG PO BID Levetiracetam (Keppra), 500 MG PO BID, (Reported) Levothyroxine Sodium (Levothyroxine Sodium), 100 MCG PO QAM, (Reported) Linezolid (Zyvox), 600 MG PO BID Quetiapine Fumerate (Seroquel), 25 MG PO TID, (Reported) Tamsulosin HCl (Tamsulosin Hydrochloride), 0.4 MG PO DAILY, (Reported) Scheduled PRN Senna (Senna Lax), 8.6 MG PO QHSP PRN for AGITATION, (Reported) Discharge Statement: "Patient was advised to return to the ER or call 911 if any headaches, dizziness, shortness of breath, chest pain, abdominal pain, bleeding, fevers, or worsening of medical condition. Patient was counseled about treatment plan, medications, possible side effects, patientverbalized understanding. All questions were answered to the best of my ability. This discharge took greater then 30 minutes in planning, reviewing documentation, counseling the patient, and discussing with other team members." ASSESSMENT ASSESSMENT Assessment Acute metabolic encephalopathy likely due to breakthrough seizure Breakthrough seizures, possible secondary to septic shock septic shock secondary to complicated UTI/ pneumonia Possible heart failure with mildly reduced ejection fraction, chronic Acute on chronic hypercapnic respiratory failure COPD, possible exacerbation, improved Pneumonia d/t gram positive/negative bacteria Septic shock due to complicated UTI Atrophic left kidney with mild left hydroureteronephrosis. pyelonephritis. Prostatomegaly chronic bladder outlet obstruction. YARA due to VMN and chronic bladder outlet obstruction, resolving possible Euthyroid sickness syndrome Lactic acidosis, resolved Hypernatremia, resolved Anemia normocytic hypochromic Constipation Date of Service: Mar 30, 2025 Billing Provider: ADDISON CHAPIN MD Common Visit Codes: 94401-HET/OBS DISCH DAY >30min OPHELIA NUNEZ RESIDENT Mar 30, 2025 18:21 ADDISON CHAPIN MD Apr 02, 2025 12:13
== END 2025-03-30 17:15 | disposition hospice, inpatient (51) | DRG 870 ==
LOC: EDBD 19:29 → ER 19:29 → EDUNIT# 19:29 → OVERFLOW 23:50 → ICU CENTRL 03-09 00:24 → TELE-CENTR 03-27 00:47
PROVIDERS: ADMIT Internal Medicine; ATTEND Emergency Medicine
PROC: 5A1955Z Respiratory Ventilation, Greater than 96 Consecutive Hours (ICD-10-PCS; principal; 2025-03-06)
PROC: 0BH17EZ Insertion of Endotracheal Airway into Trachea, Via Natural or Artificial Opening (ICD-10-PCS; 2025-03-06)
PROC: 02HV33Z Insertion of Infusion Device into Superior Vena Cava, Percutaneous Approach (ICD-10-PCS; 2025-03-06)
PROC: 02HV33Z Insertion of Infusion Device into Superior Vena Cava, Percutaneous Approach (ICD-10-PCS; 2025-03-06)
PROC: B548ZZA Ultrasonography of Superior Vena Cava, Guidance (ICD-10-PCS; 2025-03-06)
DX: A41.59 Other Gram-negative sepsis (principal); G93.41 Metabolic encephalopathy; J15.69 Pneumonia due to other Gram-negative bacteria; R65.21 Severe sepsis with septic shock; J96.21 Acute and chronic respiratory failure with hypoxia; J96.22 Acute and chronic respiratory failure with hypercapnia; J15.9 Unspecified bacterial pneumonia; N17.0 Acute kidney failure with tubular necrosis; I50.22 Chronic systolic (congestive) heart failure; J44.1 Chronic obstructive pulmonary disease with (acute) exacerbation; E87.4 Mixed disorder of acid-base balance; J98.11 Atelectasis; N13.6 Pyonephrosis; J44.0 Chronic obstructive pulmonary disease with (acute) lower respiratory infection; E87.0 Hyperosmolality and hypernatremia; I31.39 Other pericardial effusion (noninflammatory); Z66 Do not resuscitate; G40.901 Epilepsy, unspecified, not intractable, with status epilepticus; G20.A1 Parkinson's disease without dyskinesia, without mention of fluctuations; E03.9 Hypothyroidism, unspecified; D64.9 Anemia, unspecified; F02.80 Dementia in other diseases classified elsewhere, unspecified severity, without behavioral disturbance, psychotic disturbance, mood disturbance, and anxiety; K59.00 Constipation, unspecified; N36.8 Other specified disorders of urethra; R00.1 Bradycardia, unspecified; N32.0 Bladder-neck obstruction; N40.1 Benign prostatic hyperplasia with lower urinary tract symptoms; N26.1 Atrophy of kidney (terminal); Z79.899 Other long term (current) drug therapy; Z51.5 Encounter for palliative care; Z86.73 Personal history of transient ischemic attack (TIA), and cerebral infarction without residual deficits
CPT/HCPCS: 36415; 36569; 36600; 70450; 71045; 71250; 74018; 74176; 76937; 80048; 80053; 80202; 82565; 82805; 83036; 83605; 83735; 83880; 84439; 84443; 84481; 85007; 85025; 85027; 85610; 85730; 87040; 87070; 87077; 87186; 87205; 93005; 93306; 93971; 94002; 94003; 94640; 96365; 96375; G0378; J0330; J2185; J2405; J2470; J2543; J2704; J3480